=== PATIENT | male | born 1935 | race Caucasian/White ===

== ENCOUNTER 2018-07-24 17:27 | Emergency (ER) | payer OTHER ==
[2018-07-24 17:32] VITALS: BP 155/80; TEMP 98.1; BMI 24.1
--- NOTE | 2018-07-24 18:36 | ED.PDOC ---
General ED Provider: Dr. LOGAN QUINTANA Chief Complaint: Nausea/Vomiting Stated Complaint: vomited x 2 Time Seen by Physician: 17:40 (seen with nurse ) Mode of Arrival: Walk-In Information Source: Patient, Family Exam Limitations: No limitations Primary Care Provider: FRIEDA MALLORY Nursing and Triage Documentation Reviewed and Agree: Yes Does patient meet sepsis criteria?: No System Inflammatory Response Syndrome: Not Applicable Sepsis Protocol: For patient's 13 years and over: Temp is 96.8 and below OR 101 and greater Pulse >90 BPM Resp >20/minute Acutely Altered Mental Status Are patient's symptoms suggestive of a new infection, such as: -Pneumonia -Skin, Soft Tissue -Endocarditis -UTI -Bone, Joint Infection -Implantable Device -Acute Abdominal Infection -Wound Infection -Meningitis -Blood Stream Catheter Infection -Unknown GI Complaint Exam - Vomiting/Diarrhea Complaint/Exam Onset/Duration: vomited x 2 at 4pm none sinde Episodes of Vomiting over last 24 Hours: 2 Episodes of Diarrhea Over Last 24 Hours: 0 Initial Severity: Mild Current Severity: None Character of Vomiting: Reports: Non-bilious Aggravating: Reports: None Alleviating: Reports: None Associated Signs and Symptoms: Denies: Dizziness, Light-headedness, Melena, Hematemesis, Fever, Abdominal pain, Cramping Non-GI Risk Factors: Reports: None Surgical Obstruction Risk Factors: Reports: None Related Surgical History: Reports: None Abdominal Findings: Present: None Review of Systems - Review Of Systems Constitutional: Reports: No symptoms Eyes: Reports: No symptoms Ears, Nose, Mouth, Throat: Reports: No symptoms Respiratory: Reports: No symptoms Cardiac: Reports: No symptoms GI: Reports: Vomiting : Reports: No symptoms Musculoskeletal: Reports: No symptoms Skin: Reports: No symptoms Neurological: Reports: No symptoms Endocrine: Reports: No symptoms Hematologic/Lymphatic: Reports: No symptoms All Other Systems: Reviewed and Negative Past Medical History - Past Medical History Previously Healthy: Yes Endocrine: Reports: Dyslipidemia Cardiovascular: Reports: None Respiratory: Reports: None Hematological: Reports: None Gastrointestinal: Reports: None Genitourinary: Reports: None Neuro/Psych: Reports: None Musculoskeletal: Reports: None Cancer: Reports: None - Surgical History General Surgical History: Reports: None - Family History Family History: Reports: None - Social History Smoking Status: Former smoker Hx Substance Use: No Alcohol Screening: Occasionally Physical Exam - Physical Exam Appearance: Well-appearing, No pain distress, Well-nourished Eyes: BO, EOMI, Conjunctiva clear ENT: Ears normal, Nose normal, Oropharynx normal Respiratory: Airway patent, Breath sounds clear, Breath sounds equal, Respirations nonlabored Cardiovascular: RRR, Pulses normal, No rub, No murmur GI/: Soft, Nontender, No masses, Bowel sounds normal, No Organomegaly Musculoskeletal: Normal strength, ROM intact, No edema, No calf tenderness Skin: Warm, Dry, Normal color Neurological: Sensation intact, Motor intact, Reflexes intact, Cranial nerves intact, Alert, Oriented Psychiatric: Affect appropriate, Mood appropriate Interpretation - [employer] Estimator Rate: Normal Rhythm: Sinus Ectopy: None - EKG Interpretation Rate: Normal Rhythm: Sinus Ectopy: None [place]: NL ST Segment: Normal Physician Notification - Case Discussed Physician Notified: mallory Time of Notification: 19:00 (if ct abdomen is wnl pt may go home per pmd ) Critical Care Note - Critical Care Note Total Time (mins): 0 Course - Course Hematology/Chemistry: 07/24/18 18:00 07/24/18 18:00 Orders, Labs, Meds: Lab Review 07/24/18 07/24/18 07/24/18 17:45 18:00 18:00 WBC 7.62 RBC 3.98 L Hgb 13.1 L Hct 37.4 L MCV 94.0 MCH 32.9 H MCHC 35.0 RDW Coeff of Carlos 12.3 Plt Count 165 Immature Gran % (Auto) 0.5 Neut % (Auto) 75.9 Lymph % (Auto) 16.8 Cook % (Auto) 5.6 Eos % (Auto) 0.9 Baso % (Auto) 0.3 Immature Gran # (Auto) 0.0 Neut # (Auto) 5.8 Lymph # (Auto) 1.3 Cook # (Auto) 0.4 Eos # (Auto) 0.1 Baso # (Auto) 0.0 PT INR APTT Sodium 137.0 Potassium 4.56 Chloride 103.6 Carbon Dioxide 28.5 Anion Gap 9.46 BUN 12.6 Creatinine 0.89 Estimated GFR (MDRD) 82.00 BUN/Creatinine Ratio 14.15 Glucose 121.5 H Calcium 9.26 Total Bilirubin 0.71 AST 30.7 ALT 31.9 Alkaline Phosphatase 89.0 Total Creatine Kinase 108.2 Troponin I < 0.012 Total Protein 7.33 Albumin 4.24 Globulin 3.09 Albumin/Globulin Ratio 1.37 Urine Color Yellow Urine Clarity Clear Urine pH 7.0 Ur Specific [place] >=1.030 Urine Protein 2+ Urine Glucose (UA) Negative Urine Ketones Negative Urine Blood Negative Urine Nitrite Negative Urine Bilirubin Negative Urine Urobilinogen 1.0 Ur Leukocyte Esterase Negative Urine Microscopic WBC 0-2 Ur Squamous Epith Cells Not present Urine Mucus 1+ 07/24/18 18:00 WBC RBC Hgb Hct MCV MCH MCHC RDW Coeff of Carlos Plt Count Immature Gran % (Auto) Neut % (Auto) Lymph % (Auto) Cook % (Auto) Eos % (Auto) Baso % (Auto) Immature Gran # (Auto) Neut # (Auto) Lymph # (Auto) Cook # (Auto) Eos # (Auto) Baso # (Auto) PT 10.1 INR 1.01 APTT 23.2 L Sodium Potassium Chloride Carbon Dioxide Anion Gap BUN Creatinine Estimated GFR (MDRD) BUN/Creatinine Ratio Glucose Calcium Total Bilirubin AST ALT Alkaline Phosphatase Total Creatine Kinase Troponin I Total Protein Albumin Globulin Albumin/Globulin Ratio Urine Color Urine Clarity Urine pH Ur Specific [place] Urine Protein Urine Glucose (UA) Urine Ketones Urine Blood Urine Nitrite Urine Bilirubin Urine Urobilinogen Ur Leukocyte Esterase Urine Microscopic WBC Ur Squamous Epith Cells Urine Mucus Orders Category Date Time Status EKG-(ED ONLY) Stat CARDIO 07/24/18 18:07 Completed CBC W/ AUTO DIFF Stat LAB 07/24/18 18:00 Completed COMPREHENSIVE METABOLIC PANEL Stat LAB 07/24/18 18:00 Completed CREATINE KINASE Stat LAB 07/24/18 18:00 Completed PARTIAL THROMBOPLASTIN TIME Stat LAB 07/24/18 18:00 Completed PT WITH INR Stat LAB 07/24/18 18:00 Completed TROPONIN I Stat LAB 07/24/18 18:00 Completed URINALYSIS C & S IF INDICATED Stat LAB 07/24/18 17:[address] ABDOMEN/PELVIS WO CONTRAST Stat RADS 07/24/18 18:[address] CHEST W/O CONTRAST Stat RADS 07/24/18 18:07 Completed Vital Signs: Temp Pulse Resp BP Pulse Ox 07/24/18 17:27 98.1 F 76 20 155/80 H 94 L Departure - Departure Time of Disposition: 19:20 Disposition: HOME SELF-CARE Discharge Problem: Nausea, Vomiting Instructions: Acute Nausea and Vomiting (ED) Condition: Good Pt referred to PMD for follow-up: Yes IPMP verified?: No Additional Instructions: Please call your Family Physician as soon as possible to schedule a follow-up appointment. Allergies/Adverse Reactions: Allergies No Known Allergies Allergy (Verified 07/24/18 17:34) Home Medications: Ambulatory Orders Atorvastatin Calcium [Lipitor] 40 mg PO EVERY OTHER DAY 12/14/15 Multivitamin [Multi-Vitamin Daily] 1 each PO DAILY 07/24/18 Disposition Discussed With: Patient
--- NOTE | 2018-07-24 18:44 | CT ---
EXAM: CT chest without contrast HISTORY: Chest pain. TECHNIQUE: Multi-slice transaxial helical with coronal and sagittal reformed images CONTRAST: None COMPARISON: CT chest from 09/04/2015 FINDINGS: The aorta is atherosclerotic. The ascending thoracic aorta is ectatic to 36.3 mm. The aor tic arch and descending aorta have normal size. The heart size is normal. Sub centimeter mediastina l lymph nodes are noted. Calcified mediastinal and right hilar lymph nodes are detected. The lungs are severely emphysematous. No acute pulmonary nodules or masses are detected. Please refer to the CT abdomen report for details in the upper abdomen. The bones are free of suspicious osteolytic or osteoblastic lesions. Mild chronic T11 compression fr acture is noted. Previous interbody fusion has been performed in the lower cervical spine. IMPRESSION: 1. No acute cardiopulmonary disease. 2. Ectasia of the ascending thoracic aorta is 36.3 mm. 3. Severe emphysema. 4. Dependent atelectasis. 4. Chronic T11 compression fracture.
--- NOTE | 2018-07-24 18:51 | CT ---
EXAM: CT of the abdomen and pelvis without contrast. HISTORY: Pain. PROCEDURE: Contiguous axial CT images of the abdomen and pelvis without contrast with coronal and sa gittal reformats. FINDINGS: There emphysematous changes in both lungs. There are fluid density cysts in the liver. Th ere are gallstones in the gallbladder. The gallbladder is within normal limits in size. The gallbla dder wall is not well visualized by CT. The pancreas, spleen, adrenal glands and kidneys are normal i n appearance. There is aneurysmal dilatation of the infrarenal abdominal aorta which measures up to 3 .4 cm in diameter with no evidence of aneurysm leak. There are atherosclerotic calcifications in the abdominal aorta and bilateral iliac arteries. The appendix is not visualized and there are surgical clips along the margin of the cecum consistent with appendectomy. There is a mobile cecum positioned in the anterior right mid abdomen. There is diverticulosis of the colon with no evidence of diverti culitis. No free fluid or free air in the abdomen or pelvis. The bladder is adequately filled with no abnormality identified. The seminal vesicles and prostate gland are unremarkable. There is a chroni c T11 compression fracture compared with CT of 09/04/2015. There are degenerative changes in the spi ne. Impression: Cholelithiasis as described. Recommend ultrasound for further evaluation if clinically i ndicated. Infrarenal abdominal aortic aneurysm as described. Diverticulosis of the colon with no evidence of diverticulitis. Mobile cecum as described. Chronic obstructive pulmonary disease. Chronic T11 compression fracture.
== END 2018-07-24 19:22 | disposition home or self-care (01) ==
LOC: ED 17:27
DX: R11.2 Nausea with vomiting, unspecified (principal); E78.5 Hyperlipidemia, unspecified
CPT/HCPCS: 36415; 80053; 81001; 82150; 82550; 83690; 84484; 85025; 85610; 85730; 93005; 93010; 99283

== ENCOUNTER 2019-01-25 07:23 | Day surgery (SDC) ==
[2019-01-25] MEDS ORDERED: LIDOCAINE 1% 20 ML MDV ID STA (08:24)
[2019-01-25 08:26] VITALS: TEMP 97.3
[2019-01-25] MEDS ORDERED: VERSED ONE (09:15)
[2019-01-25] MEDS ORDERED: DIPRIVAN 20 ML VIAL IVP ONE (09:15)
[2019-01-25 11:17] VITALS: BP 132/68
--- NOTE | 2019-01-26 08:56 | OP ---
INDICATIONS FOR PROCEDURE: 83-year-old gentleman presents for colonoscopy exam. He has a past history of adenomatous polyps with a large polyp being removed from the transverse colon three years ago. He has a family history of colon cancer involving his father in his 60's. Siblings have had polyps. MEDICATIONS: SEE ANESTHESIA NOTES. PROCEDURE: COLONOSCOPY, SNARE POLYPECTOMY, SALINE INJECTION, ENDOCLIP THERAPY. REPORT: The risks, benefits, alternatives and limitations were discussed in detail with the patient. Informed consent was obtained. After adequate sedation was achieved, digital rectal exam revealed good tone, no masses. The colonoscope was introduced into the rectum and advanced under direct visual guidance to the cecum. The cecum was identified by the appendiceal orifice and IC valve. In the cecum there are several large AVMs. There was a small diminutive 4 mm polyp that I destroyed using a snare. I withdrew the scope back in the circumferential manner examining the mucosa quite carefully. I looked on the proximal and distal side of folds and flexures as best as possible. I was able to retroflex the scope in the right colon and in the left colon. In the very proximal ascending colon on the proximal side of a fold there was a 2 cm length linear polyp. It was only about 6 mm in width by 2 cm in length. I elected to raise this polyp using saline injection. I then removed this polyp by piecemeal technique. I was able to place an Endoclip to close the polypectomy site. The tissue pieces were collected and placed in a jar. In the proximal ascending colon there were three additional polyps about 5 mm in size. They were all removed by snare technique and placed in their own pathology jar. Withdrawing the scope further revealed a 4 mm polyp at the hepatic flexure. This was removed and destroyed by snare technique. In the sigmoid colon there was a benign appearing 5 mm polyp that was removed by snare technique. There were multiple diverticulitis scattered throughout the sigmoid colon. On retroflex view of the anal canal there were several small non engorged internal hemorrhoids. The prep was good. The withdrawal time was 28 minutes and 14 seconds. The patient tolerated the procedure well with stable vital signs and pulse oximetry throughout. IMPRESSION: 1. SEVEN (7) POLYPS REMOVED ABOVE. 2. MULTIPLE CECAL AVMS. 3. SIGMOID DIVERTICULOSIS. 4. NON ENGORGED INTERNAL HEMORRHOIDS. RECOMMENDATIONS: 1. High fiber diet. 2. Office visit as needed. 3. Will await pathology results. 4. If he is clinically well, consider surveillance colonoscopy examination again in three years, sooner if there are any signs or symptoms to indicate otherwise. cc: Dr. Brayan GREEN
== END 2019-01-25 11:00 | disposition home or self-care (01) ==
LOC: SURG 07:23
PROVIDERS: ATTEND Internal Medicine Gastroenterology
DX: Z86.010 Personal history of colon polyps (principal); Z80.0 Family history of malignant neoplasm of digestive organs; Z83.71 Family history of colonic polyps; Q27.33 Arteriovenous malformation of digestive system vessel; K57.90 Diverticulosis of intestine, part unspecified, without perforation or abscess without bleeding; K64.8 Other hemorrhoids; K63.5 Polyp of colon; D12.2 Benign neoplasm of ascending colon; D12.5 Benign neoplasm of sigmoid colon

== ENCOUNTER 2023-10-14 16:52 | Inpatient (IN) ==
[2023-10-14] MEDS ORDERED: LACTATED RINGERS 1,000 ML IV ONE (17:30)
[2023-10-14] MEDS ORDERED: ANTIVERT PO ONE (17:30)
[2023-10-14] MEDS ORDERED: ZOFRAN 4 MG/2 ML IVP ONE (17:30)
--- NOTE | 2023-10-14 17:40 | ED.PDOC ---
General ED Provider: Dr. LANCE MEANS MD Chief Complaint: Weakness Stated Complaint: HPI: said he didn't feel good this AM with some weakness. Got up and was dizzy and fell several times. Told his daughter that his head was "swimming around". No headache. No chest pain. Mild cough but no fever and no SOB. Vomited several times. Admitted in June for vomiting and gastroenteritis. 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 Hx of COPD, lipid disorder and a L frontal brain mass, partially calcified and unchanged in CT scan Jun 2023. He had fallen several times and once out of the bed and hit his head. No LOC. No MOIES or neck injury. No back or ankle injury. Family did noticed some redness and swelling of the L thumb. Resides with his daughter and she reports he hardly uses his cane Time Seen by Provider: 10/14/23 17:01 Mode of Arrival: Walk-In Information Source: Patient and Family Exam Limitations: Other (Hearing impairment and no hearing aids) Primary Care Provider: FRIEDA GUZMAN MD Referred to ED by: Other (family and self) Nursing and Triage Documentation Reviewed and Agree: Yes What is Opioid Naive?: *Opioid Naive implies the patient is not already taking opioids or not chronically receiving opioids on a daily basis. *PRN dosing is not "usually" associated with tolerance. *Patients are at higher risk of over-sedation and aspiration. What is Opioid Tolerant?: *Opioid Tolerance implies less than the expected response to an opioid. *Acquired tolerance is defined by the patient taking 60mg of oral morphine daily (or equianalgesic dose of another opioid) for 1 week or more. *Often associated with chronic pain. *May take more than usual dose to achieve desired pain control. Review of Systems Review Of Systems Constitutional: Reports Weakness Eyes: Reports No symptoms Ears, Nose, Mouth, Throat: Reports No symptoms Respiratory: Reports Cough; Denies Shortness of Breath Cardiac: Denies Chest pain, Edema or Syncope GI: Reports Nausea and Vomiting; Denies Abdominal pain or Diarrhea : Reports No symptoms Musculoskeletal: Denies Back pain or Neck pain Skin: Denies Bruising Neurological: Denies Anxiety, Depressed, Cognitive dysfunction or Headache [facility] Medical History AVM (arteriovenous malformation) Q27.30 - Arteriovenous malformation, site unspecified (ICD-10) Cholelithiases K80.20 - Calculus of gallbladder without cholecystitis without obstruction (ICD-10) Elevated PSA R97.20 - Elevated prostate specific antigen [PSA] (ICD-10) Social History Smoking and tobacco status: Never smoker Substance use type: does not use Special cristian needs: No Agree to transfusion: Yes Adopted: No Caregiver/support person: No Foster care: No Household members: spouse Housing: house Marital status: M Lives independently: Yes Number of children: 4 service: No shelter: No Current occupational status: retired History of recent travel: No Current gender identity: male Seatbelt use: always Drives intoxicated or rides with intoxicated driver's license examiner: No Water heater temperature set < 120 degrees: Yes Working smoke detector in home: Yes Fire extinguisher in home: Yes Carbon monoxide detector in home: Yes Surgical History History of appendectomy Z90.49 - Acquired absence of other specified parts of digestive tract (ICD- 10) History of cholecystectomy Z90.49 - Acquired absence of other specified parts of digestive tract (ICD- 10) History of fusion of cervical spine Z98.1 - Arthrodesis status (ICD-10) Previous back surgery Z98.890 - Other specified postprocedural states (ICD-10) Physical Exam Physical Exam Appearance: Reports No pain distress Ill-appearing: Mild Pain Distress: None Eyes: Reports BO and EOMI ENT: Reports Nose normal and Oropharynx normal Neck: Supple Respiratory: Reports Airway patent, Breath sounds equal, Breath sounds diminished and Rhonchi Cardiovascular: Reports RRR, Pulses normal, No rub and No murmur; Denies Irregular rhythm or Tachycardia GI/: Reports Soft, Nontender, No masses, Bowel sounds normal and No Organomegaly; Denies Tender Musculoskeletal: Reports Normal strength, ROM intact, No edema, No calf tenderness and Other (L hand with some redness over the 1st MCP joint. Minimal tenderness but no deformity); Denies Limited ROM or Limited strength Skin: Reports Warm, Dry and Normal color Neurological: Reports Sensation intact, Motor intact, Alert to verbal and Alert to pain Psychiatric: Reports Affect appropriate and Mood appropriate NIH Stroke Scale 1a. Level of Consciousness: 0=Alert and keenly responsive 1b. Level of Consciousness Questions: 0=Answers correctly to two questions 1c. Level of Consciousness Commands: 0=Performs two tasks correctly 2. Best Gaze: 0=Normal 3. Visual: 0=No visual loss 4. Facial Palsy: 0=Normal 5a. Motor Left Arm: 0=No drift,arm holds 90 degrees for 10 sec., leg 30 degrees for 5 sec. 5b. Motor Right Arm: 0=No drift,arm holds 90 degrees for 10 sec., leg 30 degrees for 5 sec. 6a. Motor Left Le=No drift,arm holds 90 degrees for 10 sec., leg 30 degrees for 5 sec. 6b. Motor Right Le=No drift,arm holds 90 degrees for 10 sec., leg 30 degrees for 5 sec. 7. Limb Ataxia: 0=Absent 8. Sensory: 0=Normal 9. Best Language: 0=No aphasia 10. Dysarthria: 0=Normal Stroke Scale Total: 0 Interpretation EKG Interpretation EKG Interpretation By: ED Physician Time of EKG #1: 18:20 Rate: Normal Rhythm: Other (Atrial Fib) Ectopy: PVCs [place]: NL ST Segment: Other (ST abnormalities) Interpretation: Abnormal EKG Radiology Interpretation Radiology Interpretation By: Radiologist Exam Interpreted: CXR Xray Comments: Fibrosis; CT scan of head showed no acute changes. L hand neg for fracture Physician Notification Case Discussed Physician Notified: Naz Nicole Time of Notification: 19:32 Comments: Full admit Course Course 10/14/23 17:10 10/14/23 17:10 Orders, Labs, Meds: Lab Review 10/14/23 10/14/23 17:10 17:47 WBC 10.68 H RBC 4.53 L Hgb 14.0 Hct 40.3 L MCV 89.0 MCH 30.9 MCHC 34.7 RDW Coeff of Carlos 13.4 Plt Count 270 Immature Gran % (Auto) 0.4 Neut % (Auto) 77.5 H Lymph % (Auto) 13.5 [place] % (Auto) 7.3 Eos % (Auto) 1.0 Baso % (Auto) 0.3 Neut # (Auto) 8.3 H Lymph # (Auto) 1.4 [place] # (Auto) 0.8 Eos # (Auto) 0.1 Baso # (Auto) 0.0 Immature Gran # (Auto) 0.0 Sodium 140.6 Potassium 2.15 L* Chloride 106.4 Carbon Dioxide 19.3 L Anion Gap 17.05 BUN 36.5 H Creatinine 2.37 H Estimated GFR (MDRD) 26.00 BUN/Creatinine Ratio 15.40 Glucose 132.0 H Lactic Acid 1.59 Calcium 8.71 Total Bilirubin 0.73 AST 30.1 ALT 25.0 Alkaline Phosphatase 115.4 Troponin I 0.074 Total Protein 8.81 H Albumin 4.36 Globulin 4.45 Albumin/Globulin Ratio 0.97 Procalcitonin 0.05 Influ A Molecular Assay Negative by naat Influ B Molecular Assay Negative by naat SARS CoV-2 RNA Rapid POONAM Negative Orders Category Date Time Status EKG-(ED ONLY) Stat CARDIO 10/14/23 17:28 Completed Orthostatic Vital Signs [ED ORTHOSTATIC VITAL SIGNS] . EMERGENCY 10/14/23 17:30 Active ONCE CBC W/ AUTO DIFF Stat LAB 10/14/23 17:10 Completed CMP [COMPREHENSIVE METABOLIC PANEL] Stat LAB 10/14/23 17:10 Completed COVID [SARS COV-2 RNA RAPID POONAM] Stat LAB 10/14/23 17:10 Completed FLU A/B MOLECULAR Stat LAB 10/14/23 17:10 Completed LACTIC ACID Stat LAB 10/14/23 17:47 Completed PROCALCITONIN Stat LAB 10/14/23 17:10 Completed TROPONIN I Stat LAB 10/14/23 17:10 Completed URINALYSIS C & S IF INDICATED Stat LAB 10/14/23 17:31 Uncollected Meclizine HCl [Antivert] Meds 10/14/23 17:30 Discontinued 25 mg PO ONCE ONE Ondansetron HCl/Pf [Zofran 4 mg/2 ml] Meds 10/14/23 17:30 Discontinued 4 mg IVP ONCE ONE Potassium Chloride [Potassium Chloride 20 Meq/100 ml Meds 10/14/23 18:33 Active Premix] 20 meq in 100 ml IV ONCE Ringers Lactated Solution [Lactated Ringers] 1,000 ml Meds 10/14/23 17:30 Active IV 250 mls/hr CHEST, 1V AP ONLY Stat RADS 10/14/23 17:[address] HEAD W/O CONTRAST Stat RADS 10/14/23 17:28 Completed HAND, LEFT 3 VIEWS Stat RADS 10/14/23 17:40 Completed Medications Generic Name Dose Route Start Last Admin Trade Name Freq PRN Reason Stop Dose Admin Lactated Ringer's 1,000 mls @ 250 mls/hr 10/14/23 17:30 10/14/23 18:28 Lactated Ringers IV 10/14/23 21:29 250 mls/hr .Q4H ONE Administration Potassium Chloride 20 meq in 100 mls @ 50 mls/hr 10/14/23 18:33 10/14/23 18:37 Potassium Chloride 20 Meq/100 Ml Premix IV 10/14/23 20:32 50 mls/hr ONCE ONE Administration Discontinued Medications Generic Name Dose Route Start Last Admin Trade Name Freq PRN Reason Stop Dose Admin Meclizine HCl 25 mg 10/14/23 17:30 10/14/23 18:28 Meclizine Hcl 25 Mg Tablet PO 10/14/23 17:31 25 mg ONCE ONE Administration Ondansetron HCl 4 mg 10/14/23 17:30 10/14/23 18:28 Ondansetron Hcl/Pf 4 Mg/2 Ml Sdv IVP 10/14/23 17:31 4 mg ONCE ONE Administration Vital Signs: Temp Pulse Resp BP Pulse Ox 10/14/23 17:03 98 F 85 20 107/81 95 Physician Progress Note: [] Discharge Plan Discharge Patient Disposition: ADMITTED INPATIENT Discharge Problem: Acute kidney injury, Acute hypokalemia Did you review [place] MAKE UP OPERATOR for ALL controlled substances?: Not Applicable ED Provider: LANCE MEANS Condition: Fair [place] Coma Scale Dorota Coma Scale Response Scores: Best Response = 15 Comatose Client = 8 or Less Totally Unresponsive = 3
[2023-10-14 17:42] LABS: BASOPHILS % (AUTO) 0.3 % (0.0-3.0); EOSINOPHILS # (AUTO) 0.1 K/ul (0.0-0.7); HEMATOCRIT 40.3 % (42.0-52.0); IMMATURE GRANULOCYTE % (AUTO) 0.4 % (0.0-5.0); LYMPHOCYTES # (AUTO) 1.4 K/uL (0.60-3.4); LYMPHOCYTES % (AUTO) 13.5 (10.0-50.0); MEAN CORPUSCULAR HEMOGLOBIN 30.9 pg (27.0-31.0); MEAN CORPUSCULAR HGB CONC 34.7 (31.8-35.4); MONOCYTES # (AUTO) 0.8 K/uL (0.4-2.0); MONOCYTES % (AUTO) 7.3 (0-10); NEUTROPHILS # (AUTO) 8.3 K/ul (2.0-6.9); NEUTROPHILS % (AUTO) 77.5 % (42.2-75.2); PLATELET COUNT 270 10^3/uL (140-440); RDW COEFFICIENT OF VARIATION 13.4 % (11.6-14.8); RED BLOOD COUNT 4.53 10^6/ul (4.70-6.10); WHITE BLOOD COUNT 10.68 K/ul (4.2-10.2)
[2023-10-14 17:55] LABS: ALBUMIN 4.36 g/dL (3.5-5.0); ALKALINE PHOSPHATASE 115.4 U/L (56-119); ASPARTATE AMINO TRANSFERASE 30.1 U/L (17-59); BILIRUBIN,TOTAL 0.73 mg/dL (0.2-1.3); BLOOD UREA NITROGEN 36.5 mg/dL (9-20); CALCIUM 8.71 mg/dL (8.4-10.2); CARBON DIOXIDE 19.3 mmol/L (22-30.0); CHLORIDE 106.4 mmol/L (98-107); CREATININE 2.37 mg/dL (0.60-1.10); SODIUM 140.6 mmol/L (134.5-145); TOTAL PROTEIN 8.81 g/dL (6.3-8.2)
[2023-10-14 17:58] LABS: POTASSIUM 2.15 mmol/L (3.5-5.1)
[2023-10-14 18:04] LABS: MOLECULAR FLU A NEGATIVE BY NAAT (NEGATIVE); MOLECULAR FLU B NEGATIVE BY NAAT (NEGATIVE); SARS COV-2 RNA RAPID NAAT NEGATIVE (NEGATIVE)
[2023-10-14 18:06] LABS: TROPONIN I 0.074 ng/ml (0.0000-0.120)
[2023-10-14] MEDS ORDERED: POTASSIUM CHLORIDE 20 MEQ/100 ML PREMIX 20 MEQ/100 ML BAG IV ONE ×2 (18:33→22:30)
--- NOTE | 2023-10-14 19:15 | DI ---
EXAM: CHEST RADIOGRAPH TECHNIQUE: Single frontal chest radiograph. HISTORY: Cough. COMPARISON: None. FINDINGS: EKG leads project over the chest. Reticular opacities of peripheral aspects of both mid and lower lungs. No pleural effusion or pneumothorax is seen. Heart size is normal. No acute displaced rib fractures are identified. 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 IMPRESSION: 1. Moderate pulmonary fibrosis. Difficult to exclude superimposed pneumonia.
--- NOTE | 2023-10-14 19:16 | DI ---
EXAM: LEFT HAND RADIOGRAPH TECHNIQUE: Three views. Frontal, lateral, and oblique. HISTORY: Left hand pain status post injury. COMPARISON: None. FINDINGS: Mild soft tissue swelling. Diffuse osteopenia. 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 No visible fractures or dislocations. IMPRESSION: 1. Soft tissue swelling without visible fracture.
--- NOTE | 2023-10-14 19:18 | CT ---
EXAMINATION: HEAD CT WITHOUT CONTRAST HISTORY: Dizziness. TECHNIQUE: Noncontrast CT of the brain was performed with images acquired from skull base to vertex. 2-D coronal and sagittal reformatted images were obtained from the axial source images. Contrast Dose: None. CT Dose Reduction Techniques Performed: Yes. COMPARISON: 06/25/2023 01/25/2023 FINDINGS: Topogram demonstrates no significant abnormality. Intraparenchymal hemorrhage: None. Parenchyma: Normal christian-white differentiation. Stable calcified mass in the superior posterior left frontal lobe measuring 2.7 cm without sequelae. The adjacent bone does show mild chronic appearing e rosive changes. No other mass or mass effect. Age related cerebral atrophy. Periventricular white matter ischemic changes consistent with small vessel disease. Mild bilateral internal carotid artery calcifications. Extra-axial spaces and basal cisterns: Normal. Ventricles: Normal size and morphology for age. Paranasal sinuses and mastoid air cells: Mucosal thickening seen in the bilateral maxillary sinuses. The remaining sinuses and mastoids visualized are clear. Stable small calcified osteoma in the righ t ethmoid sinus. Mastoid air cells are clear. Orbits: Normal visualized portions. Sella/Skull Base: Normal. Other: Scalp and visualized soft tissues are normal. Calvarium is normal. IMPRESSION: 1. Senescent changes without acute abnormality. 2. Stable calcified mass in the superior posterior left frontal lobe with mild chronic erosive type changes to the adjacent bone. No other sequelae. This is unchanged from the previous exams. All CT scans are performed using dose optimization techniques as appropriate to the performed exam an d include at least one of the following: Automated exposure control, adjustment of the mA and/or kV according t o size, and the use of iterative reconstruction technique.
[2023-10-14] MEDS ORDERED: TYLENOL PO PRN (19:37)
[2023-10-14] MEDS ORDERED: ZOFRAN 4 MG/2 ML IVP PRN (19:37)
[2023-10-14] MEDS ORDERED: MYLANTA SUSP PO PRN (19:39)
[2023-10-14] MEDS ORDERED: POTASSIUM CHLORIDE 20 MEQ/100 ML PREMIX 40 MEQ/200 ML BAG IV ONE (19:51)
[2023-10-14 21:39] VITALS: BMI 17.6
[2023-10-14] MEDS: LACTATED RINGERS 1,000 ML IV SCH (22:07)
[2023-10-14] MEDS: PROTONIX IVP SCH (22:08)
[2023-10-14] MEDS: POTASSIUM CHLORIDE 20 MEQ/100 ML PREMIX 20 MEQ/100 ML BAG IV SCH (22:08)
[2023-10-14] MEDS: PEPCID IVP SCH (22:09)
[2023-10-15] MEDS: POTASSIUM CHLORIDE 20 MEQ/100 ML PREMIX 20 MEQ/100 ML BAG IV SCH (00:22)
[2023-10-15 04:00] LABS: BILIRUBIN,URINE 1+ (NEGATIVE); CLARITY,URINE Slightly (CLEAR); COLOR,URINE Dark (YELLOW); GLUCOSE, URINE (UA) Negative (NEGATIVE); KETONES,URINE Negative (NEGATIVE); LEUKOCYTE ESTERASE ,URINE Trace (NEGATIVE); NITRITE,URINE Negative (NEGATIVE); PROTEIN,URINE 2+ (NEGATIVE); URINE, BLOOD Negative (NEGATIVE); UROBILINOGEN,URINE 0.2 (0.2)
[2023-10-15 04:08] LABS: BACTERIA,URINE TRACE (NOT PRESENT); TRANSITIONAL EPI CELLS,URINE 0-2 (NOT PRESENT)
[2023-10-15 05:32] LABS: BASOPHILS % (AUTO) 0.4 % (0.0-3.0); EOSINOPHILS # (AUTO) 0.3 K/ul (0.0-0.7); EOSINOPHILS % (AUTO) 3.6 % (0.0-7.0); HEMATOCRIT 34.9 % (42.0-52.0); IMMATURE GRANULOCYTE % (AUTO) 0.4 % (0.0-5.0); LYMPHOCYTES % (AUTO) 20.8 (10.0-50.0); MEAN CORPUSCULAR HEMOGLOBIN 30.7 pg (27.0-31.0); MEAN CORPUSCULAR HGB CONC 34.4 (31.8-35.4); MEAN CORPUSCULAR VOLUME 89.3 fl (80.0-94.0); MONOCYTES # (AUTO) 0.9 K/uL (0.4-2.0); MONOCYTES % (AUTO) 9.2 (0-10); NEUTROPHILS # (AUTO) 6.3 K/ul (2.0-6.9); NEUTROPHILS % (AUTO) 65.6 % (42.2-75.2); PLATELET COUNT 222 10^3/uL (140-440); RDW COEFFICIENT OF VARIATION 13.3 % (11.6-14.8); RED BLOOD COUNT 3.91 10^6/ul (4.70-6.10); WHITE BLOOD COUNT 9.57 K/ul (4.2-10.2)
[2023-10-15] MEDS: LACTATED RINGERS 1,000 ML IV SCH ×2 (05:36→15:52)
[2023-10-15 05:46] LABS: ALANINE AMINOTRANSFERASE 19.6 U/L (0-50); ALBUMIN 3.4 g/dL (3.5-5.0); ALKALINE PHOSPHATASE 104.2 U/L (56-119); ASPARTATE AMINO TRANSFERASE 23.2 U/L (17-59); BILIRUBIN,TOTAL 0.43 mg/dL (0.2-1.3); CALCIUM 8.07 mg/dL (8.4-10.2); CARBON DIOXIDE 21.7 mmol/L (22-30.0); CHLORIDE 110.2 mmol/L (98-107); CREATININE 1.91 mg/dL (0.60-1.10); GLUCOSE 103.7 mg/dL (74-106); SODIUM 138.4 mmol/L (134.5-145); TOTAL PROTEIN 7.08 g/dL (6.3-8.2)
[2023-10-15 05:52] LABS: POTASSIUM 2.68 mmol/L (3.5-5.1)
[2023-10-15] MEDS ORDERED: K-DUR PO ONE ×2 (06:05→13:16)
[2023-10-15] MEDS ORDERED: POTASSIUM CHLORIDE 20 MEQ/100 ML PREMIX 40 MEQ/200 ML BAG IV ONE (06:05)
[2023-10-15] MEDS: PEPCID IVP SCH ×2 (09:16→20:38)
[2023-10-15] MEDS: PROTONIX IVP SCH (09:16)
--- NOTE | 2023-10-15 11:44 | PCM ---
Date of Service Date Seen by Provider: 10/15/23 Time Seen by Provider: 09:00 Admit Day/Time Admission Date: 10/14/23 Admission Time: 19:33 Reason for Admission Chief Complaint: ACUTE KIDNEY INJURY WITH HYPOKALEMIA Hospital Provider Hospital Provider: JUAN HARRIS PA-C, [facility] Primary Care Physician Primary Care Physician: FRIEDA SCHMIDT MD History of Present Illness History of Present Illness: Patient is an 88 year old male from home with pmhx of gastritis, hyperlipidemia, COPD, osteoarthritis, anemia, who presented to the ER with vomiting, weakness, and falls x1 day. Patient was admitted a few months ago for similar episode. Patient was noted to have K+ of 2.1 and Cr bumped to 2.37. He was given fluids and potassium in the ER. Patient admitted to [facility] on tele. He was continued on fluids and replaced potassium. Patient did well overnight. K+ improved but still low at 2.6. Replaced again. He states he overall just doesn't feel well, lying in bed. He has ate some through area development consultant and tolerated well. No vomiting so far. Of note patient has had 23 lb weight loss in past 6 months. Closer to 30 lbs in last year. He did lose his last year and pcp notes are monitoring his weight loss. Case Discussed With Case Discussed With: Patient's case was discussed with the ER Physicians, Dr. Watson. [facility] Medical History Elevated PSA quit going to dr osborne R97.20 - Elevated prostate specific antigen [PSA] (ICD-10) Cholelithiases K80.20 - Calculus of gallbladder without cholecystitis without obstruction (ICD-10) AVM (arteriovenous malformation) cecal - x2 Shiben (does not recommend another colonoscopy) Q27.30 - Arteriovenous malformation, site unspecified (ICD-10) Surgical History History of fusion of cervical spine Z98.1 - Arthrodesis status (ICD-10) History of appendectomy Z90.49 - Acquired absence of other specified parts of digestive tract (ICD- 10) Previous back surgery x2 Z98.890 - Other specified postprocedural states (ICD-10) History of cholecystectomy Z90.49 - Acquired absence of other specified parts of digestive tract (ICD- 10) Social History Smoking and tobacco status: Never smoker Substance use type: does not use Special cristian needs: No Agree to transfusion: Yes Adopted: No Caregiver/support person: No Foster care: No Household members: spouse Housing: house Marital status: M Lives independently: Yes Number of children: 4 service: No detention: No Current occupational status: retired History of recent travel: No Current gender identity: male Seatbelt use: always Drives intoxicated or rides with intoxicated garbage truck driver: No Water heater temperature set < 120 degrees: Yes Working smoke detector in home: Yes Fire extinguisher in home: Yes Carbon monoxide detector in home: Yes Allergies Allergies Allergy/AdvReac Type Severity Reaction Status Date / Time quinine AdvReac Unconscious Verified 10/14/23 17:13 ness Current Medications Home Medications atorvastatin 40 mg tablet (Lipitor) 40 mg PO EVERY OTHER DAY #45 tabs 06/29/23 [Rx Confirmed 10/14/23 Last Taken Unknown] ferrous sulfate 325 mg (65 mg iron) tablet See Rx Instructions .Route .COMPLEX #90 tabs 06/29/23 [Rx Confirmed 10/14/23 Last Taken Unknown] Home Acetaminophen (Acetaminophen 325 Mg Tablet) 650 mg PO Q4H PRN PRN Reason: Mild Pain Al Hydroxide/Mg Hydroxide (Mag Hydrox/Al Hydrox/Simeth 30 Ml Cup) 30 ml PO DAILY PRN PRN Reason: Heartburn Atorvastatin Calcium (Atorvastatin Calcium 20 Mg Tablet) 40 mg PO EVERY OTHER DAY [facility] Enoxaparin Sodium (Enoxaparin Sodium 30 Mg/0.3 Ml Syr) 30 mg SUBCUT DAILY [facility] Last Admin: 10/15/23 14:27 Dose: 30 mg Famotidine (Famotidine Inj 20 Mg/2 Ml Vial) 20 mg IVP Q12HR [facility] Last Admin: 10/15/23 09:16 Dose: 20 mg Ferrous Sulfate (Ferrous Sulfate 324 Mg Tablet.) 324 mg PO DAILY [facility] Last Admin: 10/15/23 12:48 Dose: 324 mg Lactated Ringer's (Lactated Ringers) 1,000 mls @ 100 mls/hr IV .Q10H [facility] Last Admin: 10/15/23 05:36 Dose: 100 mls/hr Ondansetron HCl (Ondansetron Hcl/Pf 4 Mg/2 Ml Sdv) 4 mg IVP Q6H PRN PRN Reason: Nausea / Vomiting Last Admin: 10/14/23 22:08 Dose: 4 mg Pantoprazole Sodium (Pantoprazole Sodium 40 Mg Vial) 40 mg IVP DAILY [facility] Last Admin: 10/15/23 09:16 Dose: 40 mg Discontinued Medications Lactated Ringer's (Lactated Ringers) 1,000 mls @ 250 mls/hr IV .Q4H ONE Stop: 10/14/23 21:29 Last Infusion: 10/15/23 12:12 Dose: Infused Potassium Chloride (Potassium Chloride 20 Meq/100 Ml Premix) 20 meq in 100 mls @ 50 mls/hr IV ONCE ONE Stop: 10/14/23 20:32 Last Admin: 10/14/23 18:37 Dose: 50 mls/hr Potassium Chloride (Potassium Chloride 20 Meq/100 Ml Premix) 40 meq in 200 mls @ 50 mls/hr IV ONCE ONE Stop: 10/14/23 23:50 Potassium Chloride (Potassium Chloride 20 Meq/100 Ml Premix) 20 meq in 100 mls @ 50 mls/hr IV ONCE ONE Stop: 10/15/23 00:29 Potassium Chloride (Potassium Chloride 20 Meq/100 Ml Premix) 20 meq in 100 mls @ 50 mls/hr IV Q2H [place]USHKA Stop: 10/15/23 02:29 Last Admin: 10/15/23 00:22 Dose: 50 mls/hr Potassium Chloride (Potassium Chloride 20 Meq/100 Ml Premix) 40 meq in 200 mls @ 50 mls/hr IV ONCE ONE Stop: 10/15/23 10:04 Last Admin: 10/15/23 06:22 Dose: 50 mls/hr Potassium Chloride (Potassium Chloride 20 Meq/100 Ml Premix) 20 meq in 100 mls @ 50 mls/hr IV ONCE ONE Stop: 10/15/23 15:15 Last Admin: 10/15/23 14:26 Dose: 50 mls/hr Meclizine HCl (Meclizine Hcl 25 Mg Tablet) 25 mg PO ONCE ONE Stop: 10/14/23 17:31 Last Admin: 10/14/23 18:28 Dose: 25 mg Ondansetron HCl (Ondansetron Hcl/Pf 4 Mg/2 Ml Sdv) 4 mg IVP ONCE ONE Stop: 10/14/23 17:31 Last Admin: 10/14/23 18:28 Dose: 4 mg Potassium Chloride (Potassium Chloride 20 Meq Tab) 40 meq PO ONCE ONE Stop: 10/15/23 06:06 Last Admin: 10/15/23 06:23 Dose: 40 meq Potassium Chloride (Potassium Chloride 20 Meq Tab) 40 meq PO ONCE ONE Stop: 10/15/23 13:17 Last Admin: 10/15/23 14:26 Dose: 40 meq Opioid Naive vs. Tolerant Does Patient Take Opioids?: No Is Patient Opioid Naive?: Yes What is Opioid Naive?: *Opioid Naive implies the patient is not already taking opioids or not chronically receiving opioids on a daily basis. *PRN dosing is not "usually" associated with tolerance. *Patients are at higher risk of over-sedation and aspiration. Is Patient Opioid Tolerant?: No What is Opioid Tolerant?: *Opioid Tolerance implies less than the expected response to an opioid. *Acquired tolerance is defined by the patient taking 60mg of oral morphine daily (or equianalgesic dose of another opioid) for 1 week or more. *Often associated with chronic pain. *May take more than usual dose to achieve desired pain control. Review of Systems Constitutional: Reports Fatigue and Weakness Head: Reports Normocephalic and Atraumatic Cardiovascular: Denies Chest pain, Chest Pressure or Edema Respiratory: Denies Cough or Shortness of air Gastrointestinal: Reports Nausea and Vomiting; Denies Diarrhea, Abdominal pain or Melena Genitourinary: Denies Dysuria or Hematuria Neurological: Reports Weakness Physical examination Most Recent Vital Signs: Most Recent Vital Signs Temperature 97.6 F 10/15/23 09:43 Temperature Source Temporal Artery Scan 10/15/23 09:43 Temperature Source Infrared 10/14/23 17:03 Pulse Rate 63 10/15/23 09:43 Respiratory Rate 16 10/15/23 09:43 Blood Pressure 88/58 L 10/15/23 09:43 Blood Pressure Mean 68 10/15/23 09:43 Blood Pressure Location Right Arm 10/15/23 09:43 Blood Pressure Position Supine 10/15/23 05:45 O2 Sat by Pulse Oximetry 96 10/15/23 09:43 Oxygen Delivery Method Room Air 10/15/23 09:43 Height 6 ft 1 in 10/15/23 10:40 Weight 134 lb 4 oz 10/15/23 10:40 Telemetry Type Remote Telemetry 10/15/23 07:00 Telemetry Monitoring Continues 10/15/23 07:00 Telemetry Heart Rate 70 10/15/23 07:00 EKG [place] Interval 0.13 10/15/23 07:00 EKG QRS Interval 0.07 10/15/23 07:00 Telemetry Strip Reading SR with PACs 10/15/23 07:00 Appearance: Positive No Apparent Distress, Alert and Oriented x3 and Ill- Appearing Skin: Negative Rashes HEENT: Positive Normocephalic and Atraumatic; Negative Oral Mucous Moist Neck: Positive Supple and Midline Trachea Chest/Lungs: Positive Clear to Auscultation Bilaterally; Negative Rales, Rhonci or Wheezes Heart: Positive RRR GI/: Positive Soft, Nontender, Bowel Sounds Normal and No Distention Neurological: Positive Cranial Nerves Intact, Alert, Oriented and Other (+generalized weakness) Labs This Visit Labs This Visit: Labs This Visit 10/14/23 10/14/23 10/15/23 17:10 17:47 03:44 WBC 10.68 H RBC 4.53 L Hgb 14.0 Hct 40.3 L MCV 89.0 MCH 30.9 MCHC 34.7 RDW Coeff of Carlos 13.4 Plt Count 270 Immature Gran % (Auto) 0.4 Neut % (Auto) 77.5 H Lymph % (Auto) 13.5 [place] % (Auto) 7.3 Eos % (Auto) 1.0 Baso % (Auto) 0.3 Neut # (Auto) 8.3 H Lymph # (Auto) 1.4 [place] # (Auto) 0.8 Eos # (Auto) 0.1 Baso # (Auto) 0.0 Immature Gran # (Auto) 0.0 Sodium 140.6 Potassium 2.15 L* Chloride 106.4 Carbon Dioxide 19.3 L Anion Gap 17.05 BUN 36.5 H Creatinine 2.37 H Estimated GFR (MDRD) 26.00 BUN/Creatinine Ratio 15.40 Glucose 132.0 H Lactic Acid 1.59 Calcium 8.71 Magnesium 2.35 H Total Bilirubin 0.73 AST 30.1 ALT 25.0 Alkaline Phosphatase 115.4 Troponin I 0.074 Total Protein 8.81 H Albumin 4.36 Globulin 4.45 Albumin/Globulin Ratio 0.97 Procalcitonin 0.05 Urine Color Dark Urine Clarity Slightly Urine pH 6.0 Ur Specific [place] >=1.030 Urine Protein 2+ H Urine Glucose (UA) Negative Urine Ketones Negative Urine Blood Negative Urine Nitrite Negative Urine Bilirubin 1+ H Urine Urobilinogen 0.2 Ur Leukocyte Esterase Trace H Urine Microscopic WBC 2-5 Ur Squamous Epith Cells Not Reportable Ur Transition Epith Cell 0-2 Urine Bacteria Trace Influ A Molecular Assay Negative by naat Influ B Molecular Assay Negative by naat SARS CoV-2 RNA Rapid POONAM Negative 10/15/23 05:07 WBC 9.57 RBC 3.91 L Hgb 12.0 L Hct 34.9 L MCV 89.3 MCH 30.7 MCHC 34.4 RDW Coeff of Carlos 13.3 Plt Count 222 Immature Gran % (Auto) 0.4 Neut % (Auto) 65.6 Lymph % (Auto) 20.8 [place] % (Auto) 9.2 Eos % (Auto) 3.6 Baso % (Auto) 0.4 Neut # (Auto) 6.3 Lymph # (Auto) 2.0 [place] # (Auto) 0.9 Eos # (Auto) 0.3 Baso # (Auto) 0.0 Immature Gran # (Auto) 0.0 Sodium 138.4 Potassium 2.68 L* Chloride 110.2 H Carbon Dioxide 21.7 L Anion Gap 9.18 BUN 38.0 H Creatinine 1.91 H Estimated GFR (MDRD) 34.00 BUN/Creatinine Ratio 19.89 Glucose 103.7 Lactic Acid Calcium 8.07 L Magnesium Total Bilirubin 0.43 AST 23.2 ALT 19.6 Alkaline Phosphatase 104.2 Troponin I Total Protein 7.08 Albumin 3.40 L Globulin 3.68 Albumin/Globulin Ratio 0.92 Procalcitonin Urine Color Urine Clarity Urine pH Ur Specific [place] Urine Protein Urine Glucose (UA) Urine Ketones Urine Blood Urine Nitrite Urine Bilirubin Urine Urobilinogen Ur Leukocyte Esterase Urine Microscopic WBC Ur Squamous Epith Cells Ur Transition Epith Cell Urine Bacteria Influ A Molecular Assay Influ B Molecular Assay SARS CoV-2 RNA Rapid POONAM Imaging Imaging: EXAMINATION: HEAD CT WITHOUT CONTRAST HISTORY: Dizziness. TECHNIQUE: Noncontrast CT of the brain was performed with images acquired from skull base to vertex. 2-D coronal and sagittal reformatted images were obtained from the axial source images. Contrast Dose: None. CT Dose Reduction Techniques Performed: Yes. COMPARISON: 06/25/2023 01/25/2023 FINDINGS: Topogram demonstrates no significant abnormality. Intraparenchymal hemorrhage: None. Parenchyma: Normal christian-white differentiation. Stable calcified mass in the superior posterior left frontal lobe measuring 2.7 cm without sequelae. The adjacent bone does show mild chronic appearing erosive changes. No other mass or mass effect. Age related cerebral atrophy. Periventricular white matter ischemic changes consistent with small vessel disease. Mild bilateral internal carotid artery calcifications. Extra-axial spaces and basal cisterns: Normal. Ventricles: Normal size and morphology for age. Paranasal sinuses and mastoid air cells: Mucosal thickening seen in the bilateral maxillary sinuses. The remaining sinuses and mastoids visualized are clear. Stable small calcified osteoma in the right ethmoid sinus. Mastoid air cells are clear. Orbits: Normal visualized portions. Sella/Skull Base: Normal. Other: Scalp and visualized soft tissues are normal. Calvarium is normal. IMPRESSION: 1. Senescent changes without acute abnormality. 2. Stable calcified mass in the superior posterior left frontal lobe with mild chronic erosive type changes to the adjacent bone. No other sequelae. This is unchanged from the previous exams. EXAM: CHEST RADIOGRAPH TECHNIQUE: Single frontal chest radiograph. HISTORY: Cough. COMPARISON: None. FINDINGS: EKG leads project over the chest. Reticular opacities of peripheral aspects of both mid and lower lungs. No pleural effusion or pneumothorax is seen. Heart size is normal. No acute displaced rib fractures are identified. 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 IMPRESSION: 1. Moderate pulmonary fibrosis. Difficult to exclude superimposed pneumonia. EXAM: LEFT HAND RADIOGRAPH TECHNIQUE: Three views. Frontal, lateral, and oblique. HISTORY: Left hand pain status post injury. COMPARISON: None. FINDINGS: Mild soft tissue swelling. Diffuse osteopenia. 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 No visible fractures or dislocations. IMPRESSION: 1. Soft tissue swelling without visible fracture. Review Statement Review Statement: I have independently reviewed and interpreted the labs/EKGs/imaging that were ordered by the ER provider. I have reviewed all outside records that are available currently in our EMR including imaging/notes/labs from previous visits. Plan Plan: 1. Acute hypokalemia in setting of vomiting, severe - 2.1 upon admission, improved to 2.6 today. Gave another 40 oral and 40 IV. Recheck BMP at noon. 2. Acute kidney injury, stage I in setting of dehydration - Cr improved, not yet at baseline. Cont LR. 3. Vomiting - Improved, zofran prn, progress diet as tolerated. CT back in Jun was negative when he had similar symptoms. Mylanta, pepcid, and protonix ordered. 4. Hyperlipidemia - Cont home meds 5. Iron deficiency - Cont home meds 6. Unintentional weight loss - Pt not feeling well today, will discuss further with him later. DVT Prophylaxis: Lovenox Time Spent: Greater than 80 minutes spent with patient, 50% of the time spent with this patient was devoted to counseling and coordination of care. Advanced Care Planning: FULL CODE 3 minutes spent discussing advance care planning. Admit to: Inpatient Discussed Plan of Care with Dr. Bennie Schmidt. Medications Medication Orders: Medications Ordered Category Date Time Status Acetaminophen [Tylenol] Meds 10/14/23 19:37 Active 650 mg PO Q4H PRN Famotidine Inj [Pepcid] Meds 10/14/23 21:00 Active 20 mg IVP Q12HR Mag Hydrox/Al Hydrox/Simeth [Mylanta Susp] Meds 10/14/23 19:39 Active 30 ml PO DAILY PRN Ondansetron HCl/Pf [Zofran 4 mg/2 ml] Meds 10/14/23 19:37 Active 4 mg IVP Q6H PRN Pantoprazole Sodium [Protonix] Meds 10/14/23 19:40 Active 40 mg IVP DAILY Ringers Lactated Solution [Lactated Ringers] 1,000 ml Meds 10/14/23 20:00 Active IV 100 mls/hr
--- NOTE | 2023-10-15 11:50 | RS.PTINEVL ---
Subjective Patient information Date of Evaluation: 10/15/23 Date of Arrival on Unit: 10/14/23 Admitted From:: Home Diagnosis: acute kidney injury, acute hypokalemia, multiple falls Usual Living Arrangement: With Others Living Arrangement Comments: daughter lives with him Home Environment: House Medical History: COPD and Arthritis Medical History Comments:: L frontal brain mass, AVM, elevated PSA, LATEX ALLERGY?: No Surgical History: Cervical Spine, Lumbar Spine and Cholecystectomy Medications: see chart Subjective Information/ Patient Comments:: pt states that he is tired but feeling a little better. pt c/o dizziness with ambulation. Level of function Prior to this admission, the patient could do the following:: Independent Selfcare, Independent ADL's and Independent Ambulation Abilities prior to this admission: States he uses a cane at home. Current Level of Function: Partially Dependent Current Equipment Used at Home: cane Interventions Objective Patient Orientation: Person and Place Current Interventions: IV's and Telemetry Range of Motion ROM Right Upper Extremity AROM: WFL's Left Upper Extremity AROM: WFL's Right Lower Extremity AROM: WFL's Left Lower Extremity AROM: WFL's Muscle Strength Muscle Strength Right Upper Extremity: Mild Weakness (grossly 4/5) Left Upper Extremity: Mild Weakness (grossly 4/5) Right Lower Extremity: Mild Weakness (hip flex 4-/5, knee flex/ext 4/5, ankle DF/PF 4/5 ) Left Lower Extremity: Mild Weakness (hip flex 4-/5, knee flex/ext 4/5, ankle DF /PF 4/5 ) Sensation Sensation Right Upper Extremity: Intact/Normal Left Upper Extremity: Intact/Normal Right Lower Extremity: Intact/Normal Left Lower Extremity: Intact/Normal Palpation Palpation Findings: None/Normal Balance Sitting Balance and Reactions Static Sitting Balance: Fair Dynamic Sitting Balance: Fair Standing Balance and Reactions Static Standing Balance: Poor Dynamic Standing Balance: Poor Standing Equilibrium Reactions: Delayed Left and Delayed Right Standing Protective Reactions: Delayed Left and Delayed Right Functional Mobility Bed Mobility Rolling R/L: CGA Supine to Sit: CGA and 1 person assist Transfers Sit to Stand: CGA and 1 person assist Stand to Sit: CGA and 1 person assist Safety Awareness Safety Awareness: Fair ARMOND INDEX SCORE: n/a Ambulation Ambulation Assistive Device Used: Rolling Walker Orthotic/Prosthetic Device: No Distance: 35ft Assistance needed with Ambulation: CGA and 1 person assist Gait Deviations: Forward posture, Short stride and Deviates from path Ambulation Comments: pt requires cues for walker placement and gait sequencing. Factors Affecting Ambulation: Decreased Balance, Weakness, Decreased Coordination, Decreased Safety, Cognitive Status and Limited Endurance Treatment time Units charged Gait trainin Time with patient Length of Evaluation: 18 Total treatment time: 32 Patient Education Education Patient Education: Activity Modification and Education of Plan of Care Teaching Recipient: Patient Teaching Methods: Discussion Comments: discussion regarding POC. pt is [place] and requires slow, louder commands Assessment Assessment Problem List:: Decreased level of function, Requires training/education, Decreased safety/Risk of falls, Weakness and Cognitive status limits abilities Rehab Potential: Fair Further Therapy Indicated?: Yes Candidate for Swing Bed for Therapy Services?: Feel pt may not be a candidate for swing bed due to higher level of function, would need to reassess at later time. Evaluation Complexity: HISTORY: Medium, EXAM OF BODY SYSTEMS: Medium, CLINICAL PRESENTATION: Medium and CLINICAL DECISION MAKING: Medium Patient's Goal(s): Go home with my daughter Short Term Goals GOAL #1: pt demonstrate rolling and scooting in bed independently. Goal to be met by: 10/17/23 GOAL #2: Transfer sup to/from sit SBA Goal to be met by: 10/17/23 GOAL #3: Sit to/from stand CGA to SBA Goal to be met by: 10/17/23 GOAL #4: pt amb with rwx 100ft with CGA w no LOB Goal to be met by: 10/17/23 GOAL #5: Improve BLE strength 4 to 4+/5 Goal to be met by: 10/17/23 Telemarketing Manager Goals GOAL #1: Transfer sup to/from sit to/from stand SBA to independent Goal to be met by: 10/19/23 GOAL #2: pt amb with rwx functional household distances SBA to independent. Goal to be met by: 10/19/23 GOAL #3: Ascend/descend 1 step with CGA x 1 Goal to be met by: 10/19/23 Plan Plan of Care: Therapeutic EX and Therapeutic Activity Other:: gait training Frequency of Treatment: 1-2 X day, as tolerated Duration of Treatment: 4 days Anticipated Discharge Destination: Home Treatment Diagnosis (ICD 10 Codes): difficulty walking R 26.2 impaired balance R 26.81 weakness M62.81 h/o falls R 29.6 Has the Physician been added for Co-signature?: Yes
[2023-10-15] MEDS ORDERED: NON-FORMULARY MEDICATION (Ferrous Sulfate 325 mg (65 mg iron) tablet) SCH (12:30)
[2023-10-15] MEDS: FERROUS SULFATE PO SCH (12:48)
[2023-10-15 13:11] LABS: BLOOD UREA NITROGEN 32.3 mg/dL (9-20); CALCIUM 8.24 mg/dL (8.4-10.2); CARBON DIOXIDE 21.3 mmol/L (22-30.0); CHLORIDE 110.9 mmol/L (98-107); CREATININE 1.68 mg/dL (0.60-1.10); GLUCOSE 84.3 mg/dL (74-106); POTASSIUM 2.83 mmol/L (3.5-5.1); SODIUM 140.1 mmol/L (134.5-145)
[2023-10-15] MEDS ORDERED: POTASSIUM CHLORIDE 20 MEQ/100 ML PREMIX 20 MEQ/100 ML BAG IV ONE (13:16)
[2023-10-15] MEDS: LOVENOX SUBCUT SCH (14:27)
[2023-10-16] MEDS: LACTATED RINGERS 1,000 ML IV SCH ×3 (02:08→12:57)
[2023-10-16 05:30] LABS: BASOPHILS % (AUTO) 0.5 % (0.0-3.0); EOSINOPHILS # (AUTO) 0.2 K/ul (0.0-0.7); EOSINOPHILS % (AUTO) 2.6 % (0.0-7.0); HEMATOCRIT 30.9 % (42.0-52.0); HEMOGLOBIN 10.5 g/dl (14.0-18.0); IMMATURE GRANULOCYTE % (AUTO) 0.5 % (0.0-5.0); LYMPHOCYTES # (AUTO) 1.4 K/uL (0.60-3.4); LYMPHOCYTES % (AUTO) 22.2 (10.0-50.0); MEAN CORPUSCULAR HEMOGLOBIN 30.9 pg (27.0-31.0); MEAN CORPUSCULAR VOLUME 90.9 fl (80.0-94.0); MONOCYTES # (AUTO) 0.6 K/uL (0.4-2.0); MONOCYTES % (AUTO) 8.9 (0-10); NEUTROPHILS # (AUTO) 4.1 K/ul (2.0-6.9); NEUTROPHILS % (AUTO) 65.3 % (42.2-75.2); PLATELET COUNT 181 10^3/uL (140-440); RDW COEFFICIENT OF VARIATION 13.5 % (11.6-14.8); WHITE BLOOD COUNT 6.27 K/ul (4.2-10.2)
[2023-10-16 05:43] LABS: ALANINE AMINOTRANSFERASE 17.4 U/L (0-50); ALBUMIN 2.75 g/dL (3.5-5.0); ALKALINE PHOSPHATASE 80.5 U/L (56-119); ASPARTATE AMINO TRANSFERASE 21.1 U/L (17-59); BILIRUBIN,TOTAL 0.42 mg/dL (0.2-1.3); BLOOD UREA NITROGEN 25.6 mg/dL (9-20); CALCIUM 7.95 mg/dL (8.4-10.2); CARBON DIOXIDE 21.7 mmol/L (22-30.0); CHLORIDE 115.4 mmol/L (98-107); GLUCOSE 98.3 mg/dL (74-106); POTASSIUM 3.21 mmol/L (3.5-5.1); SODIUM 142.5 mmol/L (134.5-145); TOTAL PROTEIN 5.89 g/dL (6.3-8.2)
[2023-10-16 05:58] LABS: CREATININE 1.17 mg/dL (0.60-1.10)
[2023-10-16] MEDS: LOVENOX SUBCUT SCH (08:30)
[2023-10-16] MEDS: FERROUS SULFATE PO SCH (08:30)
[2023-10-16] MEDS ORDERED: K-DUR PO ONE (08:33)
[2023-10-16] MEDS: PROTONIX IVP SCH (08:45)
[2023-10-16] MEDS: PEPCID IVP SCH ×2 (08:49→21:00)
--- NOTE | 2023-10-16 09:55 | PCM.PROG ---
Date/Time Seen Date Seen by Provider: 10/16/23 Time Seen by Provider: 08:20 Provider Provider: [facility]UAN HARRIS [facility]-C, [facility] Chief Complaint Chief Complaint: ACUTE KIDNEY INJURY WITH HYPOKALEMIA Subjective Subjective: Patient working with PT, was ambulatory in the hallways. Doing better. Mildly agitated today. Would like to progress his diet for lunch. Has had some loose stools but contributes to eating liquid diet, but then says it was going on for a few days prior to admission. No nausea or vomiting. Potassium improving. Objective Appearance: Positive No Apparent Distress and Alert and Oriented x3 Chest/Lungs: Positive Clear to Auscultation Bilaterally; Negative Rales, Rhonci or Wheezes Heart: Positive RRR GI/: Positive Soft, Nontender, Bowel Sounds Normal and No Distention Neurological: Positive Alert, Oriented and Other (+generalized weakness ) Vital Signs Vital Signs: Vital Signs: Last 24 Hours 10/15/23 10:40 10/15/23 13:00 10/15/23 14:00 Temperature 97.3 F L Temperature Source Tympanic Pulse Rate 70 Respiratory Rate 18 Blood Pressure 112/78 Blood Pressure Mean 89 Blood Pressure Location Left Arm Blood Pressure Position Sitting O2 Sat by Pulse Oximetry 97 Oxygen Delivery Method Room Air Height 6 ft 1 in Weight 134 lb 4 oz Telemetry Type Remote Telemetry Telemetry Monitoring Continues Irregular Telemetry Rate (Approximate) Telemetry Heart Rate 70 EKG AZ Interval 0.14 EKG QRS Interval 0.06 Telemetry Strip Reading SR 10/15/23 18:00 10/15/23 19:00 10/15/23 19:20 Temperature 97.1 F L Temperature Source Temporal Artery Scan Pulse Rate 81 Respiratory Rate 20 Blood Pressure 123/72 Blood Pressure Mean 89 Blood Pressure Location Right Arm Blood Pressure Position O2 Sat by Pulse Oximetry 95 Oxygen Delivery Method Room Air Room Air Height Weight Telemetry Type Remote Telemetry Telemetry Monitoring Continues Irregular Telemetry Rate (Approximate) 80-90 BPM Telemetry Heart Rate EKG AZ Interval EKG QRS Interval 0.08 Telemetry Strip Reading AFIB 10/15/23 21:29 10/16/23 01:00 10/16/23 05:48 Temperature 98.8 F 98.8 F Temperature Source Temporal Artery Scan Temporal Artery Scan Pulse Rate 78 76 Respiratory Rate 17 17 Blood Pressure 99/55 L 97/56 L Blood Pressure Mean 69 69 Blood Pressure Location Left Arm Left Arm Blood Pressure Position Supine Supine O2 Sat by Pulse Oximetry 98 98 Oxygen Delivery Method Room Air Room Air Height Weight Telemetry Type Remote Telemetry Telemetry Monitoring Continues Irregular Telemetry Rate (Approximate) Telemetry Heart Rate 73 EKG AZ Interval 0.17 EKG QRS Interval 0.07 Telemetry Strip Reading SR 10/16/23 07:20 10/16/23 08:32 10/16/23 08:49 Temperature Temperature Source Pulse Rate 78 Respiratory Rate Blood Pressure 104/61 Blood Pressure Mean Blood Pressure Location Right Arm Blood Pressure Position Supine O2 Sat by Pulse Oximetry Oxygen Delivery Method Room Air Height Weight Telemetry Type Remote Telemetry Telemetry Monitoring Continues Irregular Telemetry Rate (Approximate) Telemetry Heart Rate 85 EKG AZ Interval 0.19 EKG QRS Interval 0.09 Telemetry Strip Reading NSR with PVC 10/16/23 09:49 Temperature 97.5 F L Temperature Source Tympanic Pulse Rate 78 Respiratory Rate 18 Blood Pressure 104/61 Blood Pressure Mean 75 Blood Pressure Location Right Arm Blood Pressure Position Supine O2 Sat by Pulse Oximetry 96 Oxygen Delivery Method Room Air Height Weight Telemetry Type Telemetry Monitoring Irregular Telemetry Rate (Approximate) Telemetry Heart Rate EKG AZ Interval EKG QRS Interval Telemetry Strip Reading Lab Results Lab Results: Lab Results: Last 24 Hours 10/16/23 10/15/23 05:03 12:52 WBC 6.27 RBC 3.40 L Hgb 10.5 L Hct 30.9 L MCV 90.9 MCH 30.9 MCHC 34.0 RDW Coeff of Carlos 13.5 Plt Count 181 Immature Gran % (Auto) 0.5 Neut % (Auto) 65.3 Lymph % (Auto) 22.2 Wilkes % (Auto) 8.9 Eos % (Auto) 2.6 Baso % (Auto) 0.5 Neut # (Auto) 4.1 Lymph # (Auto) 1.4 Wilkes # (Auto) 0.6 Eos # (Auto) 0.2 Baso # (Auto) 0.0 Immature Gran # (Auto) 0.0 Sodium 142.5 140.1 Potassium 3.21 L 2.83 L Chloride 115.4 H 110.9 H Carbon Dioxide 21.7 L 21.3 L Anion Gap 8.61 10.73 BUN 25.6 H 32.3 H Creatinine 1.17 H D 1.68 H Estimated GFR (MDRD) 59.00 39.00 BUN/Creatinine Ratio 21.88 19.22 Glucose 98.3 84.3 Calcium 7.95 L 8.24 L Total Bilirubin 0.42 AST 21.1 ALT 17.4 Alkaline Phosphatase 80.5 Total Protein 5.89 L Albumin 2.75 L Globulin 3.14 Albumin/Globulin Ratio 0.87 Additional Comments Additional Comments: I have independently reviewed and interpreted the labs/EKGs/imaging ordered during this hospital stay. I have reviewed outside records that are available in our EMR that pertain to medical stay including imaging/notes/labs from previous visits. Active Medications Active Medications: Medications Generic Name Dose Route Start Last Admin Trade Name Freq PRN Reason Stop Dose Admin Acetaminophen 650 mg 10/14/23 19:37 Acetaminophen 325 Mg Tablet PO Q4H PRN Mild Pain Al Hydroxide/Mg Hydroxide 30 ml 10/14/23 19:39 Mag Hydrox/Al Hydrox/Simeth 30 Ml Cup PO DAILY PRN Heartburn Atorvastatin Calcium 40 mg 10/17/23 09:00 Atorvastatin Calcium 20 Mg Tablet PO EVERY OTHER DAY ANUSHKA Enoxaparin Sodium 30 mg 10/15/23 13:15 10/16/23 08:30 Enoxaparin Sodium 30 Mg/0.3 Ml Syr SUBCUT 30 mg DAILY ANUSHKA Administration Famotidine 20 mg 10/14/23 21:00 10/16/23 08:49 Famotidine Inj 20 Mg/2 Ml Vial IVP 20 mg Q12HR ANUSHKA Administration Ferrous Sulfate 324 mg 10/17/23 06:00 Ferrous Sulfate 324 Mg Tablet. PO QDAC2 COUNTS INCLUDE 234 BEDS AT THE [facility] Lactated Ringer's 1,000 mls @ 100 mls/hr 10/14/23 20:00 10/16/23 02:08 Lactated Ringers IV 100 mls/hr .Q10H ANUSHKA Administration Ondansetron HCl 4 mg 10/14/23 19:37 10/14/23 22:08 Ondansetron Hcl/Pf 4 Mg/2 Ml Sdv IVP 4 mg Q6H PRN Administration Nausea / Vomiting Pantoprazole Sodium 40 mg 10/14/23 19:40 10/16/23 08:45 Pantoprazole Sodium 40 Mg Vial IVP 40 mg DAILY ANUSHKA Administration Plan Plan: 1. Acute hypokalemia in setting of vomiting, severe - Improving. 2.1 upon admission. Gave another 40 oral today. 2. Acute kidney injury, stage I in setting of dehydration - Cr improved, not yet at baseline. Cont LR. 3. Vomiting - Improved, zofran prn, progress diet as tolerated. CT back in Jun was negative when he had similar symptoms. Mylanta, pepcid, and protonix ordered. 4. Hyperlipidemia - Cont home meds 5. Iron deficiency - Cont home meds 6. Unintentional weight loss - Has been followed outpatient by pcp. Review Statement Review Statement: I have personally discussed and reviewed the patient's visit/currently labs/imaging/decision making with Dr. Schmidt, my supervising attending. Greater that 50 minutes spent with patient, 50% of the time spent with this patient was devoted to counseling and coordination of care.
[2023-10-16] MEDS ORDERED: BENADRYL PO PRN (10:51)
[2023-10-16 13:53] LABS: ADENOVIRUS F40/41 (PCR) NOT DETECTED (NOT DETECT); ASTROVIRUS (PCR) NOT DETECTED (NOT DETECT); CAMPYLOBACTER (PCR) NOT DETECTED (NOT DETECT); CRYPTOSPORIDIUM (PCR) NOT DETECTED (NOT DETECT); CYCLOSPORA CAYETANENSIS (PCR) NOT DETECTED (NOT DETECT); ENTAMOEBA HISTOLYTICA (PCR) NOT DETECTED (NOT DETECT); ENTEROAGGREGATIVE E.COLI (PCR) NOT DETECTED (NOT DETECT); GIARDIA LAMBLIA (PCR) NOT DETECTED (NOT DETECT); NOROVIRUS GI/GII (PCR) NOT DETECTED (NOT DETECT); PLESIOMONAS SHIGELLOIDES (PCR) NOT DETECTED (NOT DETECT); ROTAVIRUS A (PCR) NOT DETECTED (NOT DETECT); SALMONELLA(PCR) NOT DETECTED (NOT DETECT); SAPOVIRUS (PCR) NOT DETECTED (NOT DETECT); SHIGA-LIKE TOXIN E.COLI (PCR) NOT DETECTED (NOT DETECT); VIBRIO (PCR) NOT DETECTED (NOT DETECT); VIBRIO CHOLERAE (PCR) NOT DETECTED (NOT DETECT); YERSINIA ENTEROCOLITICA (PCR) NOT DETECTED (NOT DETECT)
[2023-10-16 15:08] LABS: C DIFF A/B (PCR) NOT DETECTED (NOT DETECT)
[2023-10-16] MEDS ORDERED: REMERON PO SCH (21:00)
[2023-10-16 21:24] VITALS: RESP 18
[2023-10-17 05:13] VITALS: BP 90/46; PULSE 60; TEMP 96.6
[2023-10-17] MEDS ORDERED: FERROUS SULFATE PO SCH (06:00)
[2023-10-17 06:17] LABS: BASOPHILS % (AUTO) 0.7 % (0.0-3.0); EOSINOPHILS # (AUTO) 0.2 K/ul (0.0-0.7); EOSINOPHILS % (AUTO) 3.7 % (0.0-7.0); HEMOGLOBIN 10.3 g/dl (14.0-18.0); IMMATURE GRANULOCYTE % (AUTO) 0.3 % (0.0-5.0); LYMPHOCYTES # (AUTO) 1.7 K/uL (0.60-3.4); MEAN CORPUSCULAR HEMOGLOBIN 31.7 pg (27.0-31.0); MEAN CORPUSCULAR HGB CONC 34.3 (31.8-35.4); MEAN CORPUSCULAR VOLUME 92.3 fl (80.0-94.0); MONOCYTES # (AUTO) 0.5 K/uL (0.4-2.0); MONOCYTES % (AUTO) 8.6 (0-10); NEUTROPHILS # (AUTO) 3.5 K/ul (2.0-6.9); NEUTROPHILS % (AUTO) 58.7 % (42.2-75.2); PLATELET COUNT 175 10^3/uL (140-440); RDW COEFFICIENT OF VARIATION 13.5 % (11.6-14.8); RED BLOOD COUNT 3.25 10^6/ul (4.70-6.10)
[2023-10-17 06:32] LABS: ALBUMIN 2.77 g/dL (3.5-5.0); ALKALINE PHOSPHATASE 87.3 U/L (56-119); ASPARTATE AMINO TRANSFERASE 22.6 U/L (17-59); BILIRUBIN,TOTAL 0.26 mg/dL (0.2-1.3); BLOOD UREA NITROGEN 17.7 mg/dL (9-20); CALCIUM 7.84 mg/dL (8.4-10.2); CARBON DIOXIDE 24.9 mmol/L (22-30.0); CHLORIDE 113.7 mmol/L (98-107); CREATININE 1.02 mg/dL (0.60-1.10); GLUCOSE 92.5 mg/dL (74-106); POTASSIUM 3.07 mmol/L (3.5-5.1); SODIUM 141.7 mmol/L (134.5-145); TOTAL PROTEIN 5.99 g/dL (6.3-8.2)
[2023-10-17] MEDS: PEPCID IVP SCH ×2 (08:23→08:33)
[2023-10-17] MEDS: PROTONIX IVP SCH ×2 (08:23→08:33)
[2023-10-17] MEDS ORDERED: K-DUR PO ONE (08:26)
[2023-10-17] MEDS: LOVENOX SUBCUT SCH (08:30)
[2023-10-17] MEDS ORDERED: LIPITOR PO SCH (09:00)
--- NOTE | 2023-10-17 09:56 | DCSUM ---
Admission Date Admission Date: 10/14/23 Discharge Date Discharge Date: 10/17/23 Admission Diagnosis Admission Diagnosis: 1. Acute hypokalemia in setting of vomiting, severe 2. Acute kidney injury, stage I in setting of dehydration 3. Vomiting Discharge Diagnosis Discharge Diagnosis: 1. Acute hypokalemia in setting of diarrhea, severe - Improved 2. Acute kidney injury, stage I in setting of dehydration - Resolved 3. Nausea and diarrhea, chronic 4. Hyperlipidemia - Cont home meds 5. Iron deficiency - Cont home meds 6. Unintentional weight loss - Has been followed outpatient by pcp. 7. Depression Hospital Provider [facility] Provider: JUAN HARRIS PA-C, [facility] Primary Care Physician Primary Care Physician: FRIEDA GUZMAN MD Summary of History and Physical Summary of History and Physical: Patient is an 88 year old male from home with pmhx of gastritis, hyperlipidemia, COPD, osteoarthritis, anemia, who presented to the ER with vomiting, weakness, and falls x1 day. Patient was admitted a few months ago for similar episode. Patient was noted to have K+ of 2.1 and Cr bumped to 2.37. He was given fluids and potassium in the ER. Patient admitted to [facility] on tele. He was continued on fluids and replaced potassium. Patient did well overnight. K+ improved but still low at 2.6. Replaced again. He states he overall just doesn't feel well, lying in bed. He has ate some through shift superintendent caustic cresylate and tolerated well. No vomiting so far. Of note patient has had 23 lb weight loss in past 6 months. Closer to 30 lbs in last year. He did lose his last year and pcp notes are monitoring his weight loss. Hospital Course Subjective: Patient was hydrated with LR and given potassium replacement. K+ improved but continues to have losses, contributed to ongoing diarrhea. Cr improved to baseline with fluids. Pt able to tolerate diet without difficulty. Pt clarified he doesn't have vomiting, just nausea when his stomach gets upset. His daughter states he's had ongoing diarrhea for months. Unsure of cause. GI panel ordered and was negative. Last admission CT a/p was negative. Advised continuing outpatient work up. Will discharge on potassium supplement, please f/u with pcp within 1 week for recheck of levels. Daughter has concerns about dad's mood. He has lost about 30 lbs over past year. She contributes to loss of his . States he has no appetite, and when he does eat he doesn't eat very well. His sleep habits are not great as well. Discussed could go back on lexapro as he was on in the past, or we could try mirtazepine which may help with his appetite and sleep habits. She would like to try that. He was started on mirtazepine 7.5 mg and slept through the night. Will continue on discharge. Patient was ambulatory. Denies dizziness. Feeling much better. Discharge to home. They have declined home health. Appearance: No Apparent Distress and Alert HEENT: MMM CVS: No Murmur Abdomen: Soft, Non-Tender and No Distention Respiratory: No Accessory Muscle Use Extremities: No Edema Vital Signs: Most Recent Vital Signs Temperature 96.6 F L 10/17/23 05:10 Temperature Source Temporal Artery Scan 10/17/23 05:10 Temperature Source Infrared 10/14/23 17:03 Pulse Rate 60 10/17/23 05:10 Respiratory Rate 18 10/17/23 05:10 Blood Pressure 90/46 L 10/17/23 05:10 Blood Pressure Mean 60 10/17/23 05:10 Blood Pressure Location Left Arm 10/17/23 05:10 Blood Pressure Position Supine 10/17/23 05:10 O2 Sat by Pulse Oximetry 94 L 10/17/23 05:10 Oxygen Delivery Method Room Air 10/17/23 07:26 Height 6 ft 1 in 10/15/23 10:40 Weight 134 lb 4 oz 10/15/23 10:40 Telemetry Type Remote Telemetry 10/17/23 07:00 Telemetry Monitoring Continues 10/17/23 07:00 Irregular Telemetry Rate (Approximate) 70-80 BPM 10/17/23 01:00 Telemetry Heart Rate 58 L 10/17/23 07:00 EKG MS Interval 0.17 10/17/23 07:00 EKG QRS Interval 0.07 10/17/23 07:00 Telemetry Strip Reading SR W/ PACS 10/17/23 07:00 Imaging: EXAMINATION: HEAD CT WITHOUT CONTRAST HISTORY: Dizziness. TECHNIQUE: Noncontrast CT of the brain was performed with images acquired from skull base to vertex. 2-D coronal and sagittal reformatted images were obtained from the axial source images. Contrast Dose: None. CT Dose Reduction Techniques Performed: Yes. COMPARISON: 06/25/2023 01/25/2023 FINDINGS: Topogram demonstrates no significant abnormality. Intraparenchymal hemorrhage: None. Parenchyma: Normal christian-white differentiation. Stable calcified mass in the superior posterior left frontal lobe measuring 2.7 cm without sequelae. The adjacent bone does show mild chronic appearing erosive changes. No other mass or mass effect. Age related cerebral atrophy. Periventricular white matter ischemic changes consistent with small vessel disease. Mild bilateral internal carotid artery calcifications. Extra-axial spaces and basal cisterns: Normal. Ventricles: Normal size and morphology for age. Paranasal sinuses and mastoid air cells: Mucosal thickening seen in the bilateral maxillary sinuses. The remaining sinuses and mastoids visualized are clear. Stable small calcified osteoma in the right ethmoid sinus. Mastoid air cells are clear. Orbits: Normal visualized portions. Sella/Skull Base: Normal. Other: Scalp and visualized soft tissues are normal. Calvarium is normal. IMPRESSION: 1. Senescent changes without acute abnormality. 2. Stable calcified mass in the superior posterior left frontal lobe with mild chronic erosive type changes to the adjacent bone. No other sequelae. This is unchanged from the previous exams. EXAM: CHEST RADIOGRAPH TECHNIQUE: Single frontal chest radiograph. HISTORY: Cough. COMPARISON: None. FINDINGS: EKG leads project over the chest. Reticular opacities of peripheral aspects of both mid and lower lungs. No pleural effusion or pneumothorax is seen. Heart size is normal. No acute displaced rib fractures are identified. 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 IMPRESSION: 1. Moderate pulmonary fibrosis. Difficult to exclude superimposed pneumonia. EXAM: LEFT HAND RADIOGRAPH TECHNIQUE: Three views. Frontal, lateral, and oblique. HISTORY: Left hand pain status post injury. COMPARISON: None. FINDINGS: Mild soft tissue swelling. Diffuse osteopenia. 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 No visible fractures or dislocations. IMPRESSION: 1. Soft tissue swelling without visible fracture. Lab Results Last 24 Hours: 10/17/23 10/16/23 06:13 13:25 WBC 5.90 RBC 3.25 L Hgb 10.3 L Hct 30.0 L MCV 92.3 MCH 31.7 H MCHC 34.3 RDW Coeff of Carlos 13.5 Plt Count 175 Immature Gran % (Auto) 0.3 Neut % (Auto) 58.7 Lymph % (Auto) 28.0 Potter % (Auto) 8.6 Eos % (Auto) 3.7 Baso % (Auto) 0.7 Neut # (Auto) 3.5 Lymph # (Auto) 1.7 Potter # (Auto) 0.5 Eos # (Auto) 0.2 Baso # (Auto) 0.0 Immature Gran # (Auto) 0.0 Sodium 141.7 Potassium 3.07 L Chloride 113.7 H Carbon Dioxide 24.9 Anion Gap 6.17 BUN 17.7 Creatinine 1.02 Estimated GFR (MDRD) 69.00 BUN/Creatinine Ratio 17.35 Glucose 92.5 Calcium 7.84 L Total Bilirubin 0.26 AST 22.6 ALT 17.0 Alkaline Phosphatase 87.3 Total Protein 5.99 L Albumin 2.77 L Globulin 3.22 Albumin/Globulin Ratio 0.86 Stl C. cayetanensis PCR Not detected Stool Rotavirus (PCR) Not detected Stool Adenovirus (PCR) Not detected Stool Astrovirus (PCR) Not detected Stool Campylobacter PCR Not detected Stl C.difficile Tox PCR Not detected Stool Cryptosporidium PCR Not detected Stl E.coli Shiga Tox PCR Not detected St Sh/Enteroin Ecoli PCR Not detected Stl Enterotoxigenic E PCR Not detected Stool EPEC (PCR) Not detected Stl E. histolytica PCR Not detected Stool Giardia Lamblia PCR Not detected Stl P. shigelloides PCR Not detected Stool Salmonella PCR Not detected Stool Sapovirus (PCR) Not detected St Y.enterocolitica PCR Not detected Stool Vibrio (PCR) Not detected Stl Vibrio cholerae PCR Not detected Stl Enteroaggr Ecoli PCR Not detected Stl Norovirus GI/GII PCR Not detected Discharge Instructions Discharge Planning: Discharge Planning > [address] Bennie Guzman. Discharge Medications: Medications at Discharge (Home Meds & RX) atorvastatin 40 mg tablet (Lipitor) 40 mg PO EVERY OTHER DAY #45 tabs 06/29/23 ferrous sulfate 325 mg (65 mg iron) tablet See Rx Instructions .Route .COMPLEX #90 tabs 06/29/23 Discharge Plan Discharge Discharge Orders: Discharge Patient (ONCE); Ordered 10/17/23 Ordered By: JUAN HARRIS Activity Restrictions/Additional Instructions: DISCHARGE TO HOME DIET: TOLERATED ACTIVITY: TOLERATED ENCOURAGE PROTEIN SHAKES (FAIRLIFE IS A GOOD OPTION WITH LOTS OF PROTEIN) PHARMACY: [facility] - HELPS WITH MOOD, APPETITE, AND SLEEP POTASSIUM SUPPLEMENT - PLEASE F/U WITH PCP WITHIN 1 WEEK TO MONITOR POTASSIUM LEVELS Instructions: Hyperosmolar Hyperglycemic State (IP) Patient Disposition: HOME WITH FAMILY CARE Prescriptions: New mirtazapine 7.5 mg tablet 7.5 mg PO BEDTIME Qty: 30 0RF potassium chloride 20 mEq tablet extended release 20 meq PO BID Qty: 14 0RF Rx Instructions: PLEASE RECHECK LABS WITHIN 1 WEEK Continued atorvastatin [Lipitor] 40 mg tablet 40 mg PO EVERY OTHER DAY Qty: 45 1RF ferrous sulfate 325 mg (65 mg iron) tablet See Rx Instructions .ROUTE .COMPLEX Qty: 90 1RF Dose Instruction: TAKE 1 TABLET BY MOUTH EVERY DAY Rx Instructions: TAKE 1 TABLET BY MOUTH EVERY DAY Did you review [place] MED[employer] STAFF DIRECTOR for ALL controlled substances?: Not Applicable Discussed opioids are addictive and Narcan is available by prescription or from pharmacy.: No Condition: Stable
== END 2023-10-17 11:40 | disposition home or self-care (01) | DRG 641 ==
LOC: ED 16:52 → MEDSURG B 19:52
PROVIDERS: ADMIT Hospitalist; ATTEND Physician Assistant
DX: Z20.822 Contact with and (suspected) exposure to COVID-19; R11.10 Vomiting, unspecified; M19.90 Unspecified osteoarthritis, unspecified site; N17.9 Acute kidney failure, unspecified; E61.1 Iron deficiency; J44.9 Chronic obstructive pulmonary disease, unspecified; I48.91 Unspecified atrial fibrillation; R22.32 Localized swelling, mass and lump, left upper limb; R53.83 Other fatigue; R63.4 Abnormal weight loss; F32.A Depression, unspecified; D64.9 Anemia, unspecified; E87.6 Hypokalemia; I71.43 Infrarenal abdominal aortic aneurysm, without rupture; G93.89 Other specified disorders of brain

== ENCOUNTER 2023-12-17 15:18 | Inpatient (IN) ==
--- NOTE | 2023-12-17 15:48 | ED.PDOC ---
General ED Provider: Dr. JORGE GAFFNEY MD Chief Complaint: Well Check Stated Complaint: 88 years old male coming to the emergency room for generalized weakness. Patient has been feeling very weak staying in bed decreased oral intake for the last 4 to 5 days. Patient ran out of his antidepressant m edications but his primary care physician did not refill it because of frequent falling. Patient PCP is Dr. Schmidt who recommended the patient to go to the emergency room for workup. Otherwise patient denies any fever, chest pain, shortness of breath, changes in bowel or urine. Time Seen by Provider: 12/17/23 15:31 Primary Care Provider: FRIEDA SCHMIDT MD Nursing and Triage Documentation Reviewed and Agree: Yes What is Opioid Naive?: *Opioid Naive implies the patient is not already taking opioids or not chronically receiving opioids on a daily basis. *PRN dosing is not "usually" associated with tolerance. *Patients are at higher risk of over-sedation and aspiration. What is Opioid Tolerant?: *Opioid Tolerance implies less than the expected response to an opioid. *Acquired tolerance is defined by the patient taking 60mg of oral morphine daily (or equianalgesic dose of another opioid) for 1 week or more. *Often associated with chronic pain. *May take more than usual dose to achieve desired pain control. Review of Systems Review Of Systems Constitutional: Reports Malaise and Weakness [facility] Medical History Elevated PSA quit going to dr osborne R97.20 - Elevated prostate specific antigen [PSA] (ICD-10) Cholelithiases K80.20 - Calculus of gallbladder without cholecystitis without obstruction (ICD-10) AVM (arteriovenous malformation) cecal - x2 Shiben (does not recommend another colonoscopy) Q27.30 - Arteriovenous malformation, site unspecified (ICD-10) Social History Smoking and tobacco status: Never smoker Substance use type: does not use Special cristian needs: No Agree to transfusion: Yes Adopted: No Caregiver/support person: No Foster care: No Household members: spouse Housing: house Marital status: M Lives independently: Yes Number of children: 4 service: No jail: No Current occupational status: retired History of recent travel: No Current gender identity: male Seatbelt use: always Drives intoxicated or rides with intoxicated lokie driver: No Water heater temperature set < 120 degrees: Yes Working smoke detector in home: Yes Fire extinguisher in home: Yes Carbon monoxide detector in home: Yes Surgical History History of fusion of cervical spine Z98.1 - Arthrodesis status (ICD-10) History of appendectomy Z90.49 - Acquired absence of other specified parts of digestive tract (ICD- 10) Previous back surgery x2 Z98.890 - Other specified postprocedural states (ICD-10) History of cholecystectomy Z90.49 - Acquired absence of other specified parts of digestive tract (ICD- 10) Physical Exam Physical Exam Appearance: Reports Thin and Cachectic Respiratory: Reports Airway patent, Breath sounds clear, Breath sounds equal and Breath sounds diminished Cardiovascular: Reports RRR, Pulses normal, No rub and No murmur Musculoskeletal: Reports ROM intact and No edema Interpretation EKG Interpretation EKG Interpretation By: ED Physician Time of EKG #1: 15:50 Rate: Normal Rhythm: Sinus Ectopy: None Spangle: NL Interpretation: No signs of ischemia Course Course Orders, Labs, Meds: Orders Category Date Time Status EKG-(ED ONLY) Stat CARDIO 12/17/23 15:37 Ordered Saline Lock [ED IV/MEDIPORT/POWERPORT] .ONCE EMERGENCY 12/17/23 15:36 Active CBC W/ AUTO DIFF Stat LAB 12/17/23 15:36 Ordered CMP [COMPREHENSIVE METABOLIC PANEL] Stat LAB 12/17/23 15:36 Ordered COVID [SARS COV-2 RNA RAPID POONAM] Stat LAB 12/17/23 Uncollected FLU A & B MOLECULAR [FLU A/B MOLECULAR] Stat LAB 12/17/23 15:44 Uncollected URINALYSIS C & S IF INDICATED Stat LAB 12/17/23 15:36 Uncollected 0.9 % Sodium Chloride [Saline Flush] Meds 12/17/23 15:36 Active 1 syr IVF PRN PRN Ringers Lactated Solution [Lactated Ringers] 1,000 ml Meds 12/17/23 15:36 Active IV BOLUS CXR [CHEST, 1V AP ONLY] Stat RADS 12/17/23 15:36 Ordered Medications Generic Name Dose Route Start Last Admin Trade Name Freq PRN Reason Stop Dose Admin Lactated Ringer's 1,000 mls @ 1,000 mls/hr 12/17/23 15:36 Lactated Ringers IV 12/17/23 16:35 BOLUS ONE Sodium Chloride 1 syr 12/17/23 15:36 0.9% Sodium Chloride 10 Ml Disp.Syrin IVF PRN PRN To flush IV Vital Signs: Patient with dehydration and acute renal failure hypokalemia CBC shows leukocytosis no pneumonia on the chest x-ray patient was given 40 mill equivalents of potassium p.o. and 1 L of lactated Ringer ordered another liter of NS with 40 mEq of potassium at a low rate of 125 mill per hour. Patient needs to be admitted. Called hospitalist on-call Dave discussed the patient case with her and she accepted the patient to be admitted under her services. Discharge Plan Discharge Patient Disposition: ADMITTED INPATIENT Discharge Problem: Dehydration, Hypokalemia, Acute renal failure Prescriptions: No Action atorvastatin [Lipitor] 40 mg tablet 40 mg PO EVERY OTHER DAY Qty: 45 1RF ferrous sulfate 325 mg (65 mg iron) tablet See Rx Instructions .ROUTE .COMPLEX Qty: 90 1RF Dose Instruction: TAKE 1 TABLET BY MOUTH EVERY DAY Rx Instructions: TAKE 1 TABLET BY MOUTH EVERY DAY potassium chloride 20 mEq tablet extended release 20 meq PO QID Qty: 20 0RF mirtazapine 7.5 mg tablet 7.5 mg PO BEDTIME tamsulosin [Flomax] 0.4 mg capsule 0.4 mg PO QHS Did you review [place] TAILORING TEACHER for ALL controlled substances?: Not Applicable ED Provider: JORGE GAFFNEY Condition: Stable Physician Progress Note: []
[2023-12-17 15:51] LABS: BASOPHILS % (AUTO) 0.1 % (0.0-3.0); EOSINOPHILS % (AUTO) 0.2 % (0.0-7.0); HEMATOCRIT 38.6 % (42.0-52.0); HEMOGLOBIN 12.6 g/dl (14.0-18.0); IMMATURE GRANULOCYTE # (AUTO) 0.1 (0.0-1.0); IMMATURE GRANULOCYTE % (AUTO) 0.4 % (0.0-5.0); LYMPHOCYTES # (AUTO) 1.5 K/uL (0.60-3.4); LYMPHOCYTES % (AUTO) 12.3 (10.0-50.0); MEAN CORPUSCULAR HEMOGLOBIN 30.2 pg (27.0-31.0); MEAN CORPUSCULAR HGB CONC 32.6 (31.8-35.4); MEAN CORPUSCULAR VOLUME 92.6 fl (80.0-94.0); MONOCYTES # (AUTO) 0.3 K/uL (0.4-2.0); MONOCYTES % (AUTO) 2.4 (0-10); NEUTROPHILS # (AUTO) 10.4 K/ul (2.0-6.9); NEUTROPHILS % (AUTO) 84.6 % (42.2-75.2); PLATELET COUNT 367 10^3/uL (140-440); RDW COEFFICIENT OF VARIATION 12.8 % (11.6-14.8); RED BLOOD COUNT 4.17 10^6/ul (4.70-6.10); WHITE BLOOD COUNT 12.32 K/ul (4.2-10.2)
--- NOTE | 2023-12-17 15:59 | DI ---
EXAM: CHEST RADIOGRAPH TECHNIQUE: Single frontal chest radiograph. HISTORY: Cough COMPARISON: 10/14/2023 FINDINGS: There is centrilobular emphysema with lower lobe fibrosis. No effusion. Atherosclerotic aorta. The heart size is normal. The osseous structures are unremarkable. IMPRESSION: 1. Emphysema with lower lobe fibrosis
[2023-12-17] MEDS: LACTATED RINGERS 1,000 ML IV ONE (16:03)
[2023-12-17 16:04] LABS: ALBUMIN 3.98 g/dL (3.5-5.0); ALKALINE PHOSPHATASE 123.4 U/L (56-119); ASPARTATE AMINO TRANSFERASE 28.5 U/L (17-59); BILIRUBIN,TOTAL 0.79 mg/dL (0.2-1.3); CALCIUM 8.95 mg/dL (8.4-10.2); CARBON DIOXIDE 16.5 mmol/L (22-30.0); CREATININE 2.14 mg/dL (0.60-1.10); GLUCOSE 104.9 mg/dL (74-106); POTASSIUM 2.89 mmol/L (3.5-5.1); SODIUM 136.5 mmol/L (134.5-145); TOTAL PROTEIN 8.5 g/dL (6.3-8.2)
[2023-12-17 16:34] LABS: SARS COV-2 RNA RAPID NAAT NEGATIVE (NEGATIVE)
[2023-12-17 16:35] LABS: MOLECULAR FLU A NEGATIVE BY NAAT (NEGATIVE); MOLECULAR FLU B NEGATIVE BY NAAT (NEGATIVE)
[2023-12-17] MEDS ORDERED: ZOFRAN 4 MG/2 ML IVP PRN (16:58)
[2023-12-17] MEDS: K-DUR PO STA (17:11)
[2023-12-17 17:51] VITALS: BMI 17.5
[2023-12-17] MEDS: SODIUM CHLORIDE 0.9%-KCL 40MEQ 1,000 ML IV ONE (17:58)
[2023-12-17] MEDS: LACTATED RINGERS 1,000 ML IV SCH (18:04)
[2023-12-17] MEDS: TYLENOL PO PRN (20:53)
[2023-12-17] MEDS: FLOMAX PO SCH (20:53)
[2023-12-17 21:14] LABS: BILIRUBIN,URINE 2+ (NEGATIVE); CLARITY,URINE Cloudy (CLEAR); COLOR,URINE Yellow (YELLOW); GLUCOSE, URINE (UA) Negative (NEGATIVE); KETONES,URINE 1+ (NEGATIVE); LEUKOCYTE ESTERASE ,URINE 2+ (NEGATIVE); NITRITE,URINE Negative (NEGATIVE); PH,URINE 7.5 (5-9); PROTEIN,URINE 2+ (NEGATIVE); URINE, BLOOD Negative (NEGATIVE); UROBILINOGEN,URINE 0.2 (0.2)
[2023-12-17 21:21] LABS: BACTERIA,URINE 2+ (NOT PRESENT); SQUAMOUS EPITHELIAL CELL,UR NOT PRESENT (0-5); TRANSITIONAL EPI CELLS,URINE 0-2 (NOT PRESENT); URINE WBC, MICROSCOPIC 20-30 (0-2)
[2023-12-17] MEDS: ROCEPHIN 1 GM/50 ML D5W 1 GM/50 ML BAG IV SCH (22:41)
[2023-12-18 05:29] LABS: BASOPHILS % (AUTO) 0.4 % (0.0-3.0); EOSINOPHILS # (AUTO) 0.1 K/ul (0.0-0.7); EOSINOPHILS % (AUTO) 1.8 % (0.0-7.0); IMMATURE GRANULOCYTE % (AUTO) 0.4 % (0.0-5.0); LYMPHOCYTES # (AUTO) 1.9 K/uL (0.60-3.4); MEAN CORPUSCULAR HEMOGLOBIN 29.8 pg (27.0-31.0); MEAN CORPUSCULAR HGB CONC 32.7 (31.8-35.4); MEAN CORPUSCULAR VOLUME 91.1 fl (80.0-94.0); MONOCYTES # (AUTO) 0.6 K/uL (0.4-2.0); MONOCYTES % (AUTO) 8.2 (0-10); NEUTROPHILS # (AUTO) 4.7 K/ul (2.0-6.9); NEUTROPHILS % (AUTO) 63.2 % (42.2-75.2); PLATELET COUNT 286 10^3/uL (140-440); RED BLOOD COUNT 3.36 10^6/ul (4.70-6.10); WHITE BLOOD COUNT 7.41 K/ul (4.2-10.2)
[2023-12-18 05:42] LABS: HEMATOCRIT 30.6 % (42.0-52.0)
[2023-12-18 05:52] LABS: ALANINE AMINOTRANSFERASE 20.8 U/L (0-50); ALBUMIN 3.07 g/dL (3.5-5.0); ALKALINE PHOSPHATASE 94.3 U/L (56-119); BILIRUBIN,TOTAL 0.51 mg/dL (0.2-1.3); BLOOD UREA NITROGEN 41.4 mg/dL (9-20); CALCIUM 8.19 mg/dL (8.4-10.2); CARBON DIOXIDE 18.9 mmol/L (22-30.0); CHLORIDE 108.4 mmol/L (98-107); CREATININE 1.68 mg/dL (0.60-1.10); GLUCOSE 91.5 mg/dL (74-106); SODIUM 134.9 mmol/L (134.5-145); TOTAL PROTEIN 6.74 g/dL (6.3-8.2)
[2023-12-18 06:04] LABS: POTASSIUM 2.76 mmol/L (3.5-5.1)
[2023-12-18] MEDS: K-DUR PO ONE (06:34)
[2023-12-18] MEDS: POTASSIUM CHLORIDE 20 MEQ/100 ML PREMIX 40 MEQ/200 ML BAG IV ONE (06:34)
[2023-12-18] MEDS: FERROUS SULFATE PO SCH (08:36)
[2023-12-18] MEDS: SODIUM BICARBONATE 8.4% 100 MEQ in LACTATED RINGERS 1,000 ML IV SCH (09:45)
--- NOTE | 2023-12-18 11:58 | PCM ---
Date of Service Date Seen by Provider: 12/18/23 Time Seen by Provider: 08:25 Admit Day/Time Admission Date: 12/17/23 Reason for Admission Chief Complaint: DEHYDRATION, ACUTE RENAL FAILURE Hospital Provider Hospital Provider: JAVED LOU[place] [facility] [place] Primary Care Physician: FRIEDA SCHMIDT MD History of Present Illness History of Present Illness: 88 yo male presented to the ER with weakness. Family reported to ER provider that patient has not been eating or drinking well over the last several days. He was recently admitted for hypokalemia and takes 20 meq QID. K was 2.89 in ER. Also found to be in ANNIE and metabolic acidosis. Had episodes of diarrhea upon arrival to the medical floor. Patient states today that he just has not felt well at home but could not give me specific symptoms. Denies fever, chills, body aches, n/v, or urinary symptoms. UA collected and showed evidence of UTI. Patient admitted initially observation. Case Discussed With Case Discussed With: Patient's case was discussed with the ER Physicians, Dr. Bright [facility] Medical History Elevated PSA quit going to dr osborne R97.20 - Elevated prostate specific antigen [PSA] (ICD-10) Cholelithiases K80.20 - Calculus of gallbladder without cholecystitis without obstruction (ICD-10) AVM (arteriovenous malformation) cecal - x2 Shiben (does not recommend another colonoscopy) Q27.30 - Arteriovenous malformation, site unspecified (ICD-10) Surgical History History of fusion of cervical spine Z98.1 - Arthrodesis status (ICD-10) History of appendectomy Z90.49 - Acquired absence of other specified parts of digestive tract (ICD- 10) Previous back surgery x2 Z98.890 - Other specified postprocedural states (ICD-10) History of cholecystectomy Z90.49 - Acquired absence of other specified parts of digestive tract (ICD- 10) Social History Smoking and tobacco status: Never smoker Substance use type: does not use Special cristian needs: No Agree to transfusion: Yes Adopted: No Caregiver/support person: No Foster care: No Household members: spouse Housing: house Marital status: M Lives independently: Yes Number of children: 4 service: No skilled nursing: No Current occupational status: retired History of recent travel: No Current gender identity: male Seatbelt use: always Drives intoxicated or rides with intoxicated cdl company driver: No Water heater temperature set < 120 degrees: Yes Working smoke detector in home: Yes Fire extinguisher in home: Yes Carbon monoxide detector in home: Yes Allergies Allergies Allergy/AdvReac Type Severity Reaction Status Date / Time quinine AdvReac Unconscious Verified 12/17/23 15:37 ness Current Medications Home Medications atorvastatin 40 mg tablet (Lipitor) 40 mg PO EVERY OTHER DAY #45 tabs 06/29/23 [Rx Confirmed 12/17/23 Last Taken Unknown] ferrous sulfate 325 mg (65 mg iron) tablet See Rx Instructions .Route .COMPLEX #90 tabs 06/29/23 [Rx Confirmed 12/17/23 Last Taken Unknown] tamsulosin 0.4 mg capsule (Flomax) 0.4 mg PO QHS 10/21/23 [History Confirmed 12/17/23 Last Taken Unknown] potassium chloride 20 mEq tablet,extended release 20 meq PO QID #20 tabs 10/22/23 [Rx Confirmed 12/17/23 Last Taken Unknown] Home Acetaminophen (Acetaminophen 325 Mg Tablet) 650 mg PO Q4H PRN PRN Reason: Mild Pain Last Admin: 12/17/23 20:53 Dose: 650 mg Atorvastatin Calcium (Atorvastatin Calcium 20 Mg Tablet) 40 mg PO EVERY OTHER DAY [facility] Ferrous Sulfate (Ferrous Sulfate 324 Mg Tablet.) 324 mg PO DAILY [facility] Last Admin: 12/18/23 08:36 Dose: 324 mg CEFTRIAXONE/D5W 1 GM PREMIX (Rocephin 1 Gm/50 Ml D5w) 1 gm in 50 mls @ 100 mls/hr IV BEDTIME ANUSHKA Stop: 12/20/23 21:59 Sodium Bicarbonate 100 meq/ (Lactated Ringer's) 1,100 mls @ 100 mls/hr IV .Q11H [facility] Last Admin: 12/18/23 09:45 Dose: 100 mls/hr Mirtazapine (Mirtazapine 15 Mg Tablet) 7.5 mg PO BEDTIME ANUSHKA Ondansetron HCl (Ondansetron Hcl/Pf 4 Mg/2 Ml Sdv) 4 mg IVP Q6H PRN PRN Reason: Nausea / Vomiting Potassium Chloride (Potassium Chloride 20 Meq Tab) 20 meq PO QID [facility] Sodium Chloride (0.9% Sodium Chloride 10 Ml Disp.Syrin) 1 syr IVF Q8HR [facility] Tamsulosin HCl (Tamsulosin Hcl 0.4 Mg Cap.Er.24h) 0.4 mg PO BEDTIME [facility] Last Admin: 12/17/23 20:53 Dose: 0.4 mg Discontinued Medications Lactated Ringer's (Lactated Ringers) 1,000 mls @ 1,000 mls/hr IV BOLUS ONE Stop: 12/17/23 16:35 Last Infusion: 12/17/23 18:05 Dose: Infused Potassium Chloride/Sodium Chloride (Sodium Chloride 0.9%-Kcl 40meq) 1,000 mls @ 125 mls/hr IV .Q8H ONE Stop: 12/18/23 00:37 Last Admin: 12/17/23 17:58 Dose: Not Given Lactated Ringer's (Lactated Ringers) 1,000 mls @ 100 mls/hr IV .Q10H [facility] Last Admin: 12/18/23 02:46 Dose: 100 mls/hr CEFTRIAXONE/D5W 1 GM PREMIX (Rocephin 1 Gm/50 Ml D5w) 1 gm in 50 mls @ 100 mls/hr IV Q24H [facility] Stop: 12/20/23 21:59 Last Admin: 12/17/23 22:41 Dose: 100 mls/hr Potassium Chloride (Potassium Chloride 20 Meq/100 Ml Premix) 40 meq in 200 mls @ 50 mls/hr IV ONCE ONE Stop: 12/18/23 10:18 Last Admin: 12/18/23 06:34 Dose: 50 mls/hr Potassium Chloride (Potassium Chloride 20 Meq Tab) 40 meq PO ONCE STA Stop: 12/17/23 16:11 Last Admin: 12/17/23 17:11 Dose: 40 meq Potassium Chloride (Potassium Chloride 20 Meq Tab) 40 meq PO ONCE ONE Stop: 12/18/23 06:20 Last Admin: 12/18/23 06:34 Dose: 40 meq Sodium Chloride (0.9% Sodium Chloride 10 Ml Disp.Syrin) 1 syr IVF PRN PRN PRN Reason: To flush IV Opioid Naive vs. Tolerant Does Patient Take Opioids?: No Is Patient Opioid Naive?: Yes What is Opioid Naive?: *Opioid Naive implies the patient is not already taking opioids or not chronically receiving opioids on a daily basis. *PRN dosing is not "usually" associated with tolerance. *Patients are at higher risk of over-sedation and aspiration. Is Patient Opioid Tolerant?: No What is Opioid Tolerant?: *Opioid Tolerance implies less than the expected response to an opioid. *Acquired tolerance is defined by the patient taking 60mg of oral morphine daily (or equianalgesic dose of another opioid) for 1 week or more. *Often associated with chronic pain. *May take more than usual dose to achieve desired pain control. Review of Systems Constitutional: Reports Weakness and Loss of appetite Head: Reports Normocephalic Eyes: Reports No symptoms Ears: Reports No symptoms Nose: Reports No symptoms Mouth: Reports No symptoms Throat: Reports No symptoms Cardiovascular: Reports No symptoms Respiratory: Reports No symptoms Gastrointestinal: Reports Diarrhea Genitourinary: Reports No Symptoms Musculoskeletal: Reports No symptoms Endocrine: Reports No symptoms Hematology: Reports No symptoms Immunology: Reports No symptoms Neurological: Reports No symptoms Psychiatric: Reports No symptoms Physical examination Most Recent Vital Signs: Most Recent Vital Signs Temperature 97.2 F L 12/18/23 09:46 Temperature Source Tympanic 12/18/23 09:46 Temperature Source Oral 12/17/23 15:43 Pulse Rate 62 12/18/23 09:46 Respiratory Rate 18 12/18/23 09:46 Blood Pressure 119/71 12/18/23 09:46 Blood Pressure Mean 87 12/18/23 09:46 Blood Pressure Left Arm 112/65 12/17/23 17:46 Blood Pressure Location Left Arm 12/18/23 09:46 Blood Pressure Position Supine 12/18/23 09:46 O2 Sat by Pulse Oximetry 96 12/18/23 09:46 Oxygen Delivery Method Room Air 12/18/23 09:46 Height 6 ft 12/17/23 17:46 Weight 129 lb 3 oz 12/17/23 17:46 Telemetry Type Remote Telemetry 12/18/23 07:00 Telemetry Monitoring Continues 12/18/23 07:00 Telemetry Heart Rate 66 12/18/23 07:00 EKG RI Interval 0.20 12/18/23 07:00 EKG QRS Interval 0.12 H 12/18/23 07:00 Telemetry Strip Reading SR with BBB and freq. PAC's 12/18/23 07:00 Appearance: Positive No Apparent Distress, Alert and Oriented x3, Ill-Appearing, Thin and Cachectic Skin: Positive Warm and Good Turgor HEENT: Positive Normocephalic and PERRLA Neck: Positive Supple and Midline Trachea Chest/Lungs: Positive Symmetrical With Equal Breath Sounds, Clear to Auscultation Bilaterally and Good Air Movement all 4 Lung [place] Heart: Positive RRR and Pulses Normal GI/: Positive Soft, Nontender, Bowel Sounds Normal and No Distention Musculoskeletal: Positive Not Examined Extremities: Positive Intact Peripheral Pulses and Stable Joints Without Laxity Neurological: Positive Sensation Intact, Motor intact, Reflexes Intact, Alert, Oriented and Other (generalized ) Labs This Visit Labs This Visit: Labs This Visit 12/17/23 12/17/23 12/17/23 15:44 15:48 16:20 WBC 12.32 H RBC 4.17 L Hgb 12.6 L Hct 38.6 L MCV 92.6 MCH 30.2 MCHC 32.6 RDW Coeff of Carlos 12.8 Plt Count 367 Immature Gran % (Auto) 0.4 Neut % (Auto) 84.6 H Lymph % (Auto) 12.3 [place] % (Auto) 2.4 Eos % (Auto) 0.2 Baso % (Auto) 0.1 Neut # (Auto) 10.4 H Lymph # (Auto) 1.5 [place] # (Auto) 0.3 L Eos # (Auto) 0.0 Baso # (Auto) 0.0 Immature Gran # (Auto) 0.1 Sodium 136.5 Potassium 2.89 L Chloride 103.0 Carbon Dioxide 16.5 L Anion Gap 19.89 BUN 46.0 H Creatinine 2.14 H Estimated GFR (MDRD) 29.00 BUN/Creatinine Ratio 21.49 Glucose 104.9 Lactic Acid 1.31 Calcium 8.95 Total Bilirubin 0.79 AST 28.5 ALT 27.0 Alkaline Phosphatase 123.4 H Total Protein 8.50 H Albumin 3.98 Globulin 4.52 Albumin/Globulin Ratio 0.88 Urine Color Urine Clarity Urine pH Ur Specific [place] Urine Protein Urine Glucose (UA) Urine Ketones Urine Blood Urine Nitrite Urine Bilirubin Urine Urobilinogen Ur Leukocyte Esterase Urine Microscopic WBC Ur Squamous Epith Cells Ur Transition Epith Cell Urine Bacteria Influ A Molecular Assay Negative by naat Influ B Molecular Assay Negative by naat SARS CoV-2 RNA Rapid POONAM Negative 12/17/23 12/18/23 21:08 05:00 WBC 7.41 RBC 3.36 L Hgb 10.0 L Hct 30.6 L D MCV 91.1 MCH 29.8 MCHC 32.7 RDW Coeff of Carlos 13.0 Plt Count 286 Immature Gran % (Auto) 0.4 Neut % (Auto) 63.2 Lymph % (Auto) 26.0 [place] % (Auto) 8.2 Eos % (Auto) 1.8 Baso % (Auto) 0.4 Neut # (Auto) 4.7 Lymph # (Auto) 1.9 [place] # (Auto) 0.6 Eos # (Auto) 0.1 Baso # (Auto) 0.0 Immature Gran # (Auto) 0.0 Sodium 134.9 Potassium 2.76 L* Chloride 108.4 H Carbon Dioxide 18.9 L Anion Gap 10.36 BUN 41.4 H Creatinine 1.68 H Estimated GFR (MDRD) 39.00 BUN/Creatinine Ratio 24.64 Glucose 91.5 Lactic Acid Calcium 8.19 L Total Bilirubin 0.51 AST 26.0 ALT 20.8 Alkaline Phosphatase 94.3 D Total Protein 6.74 Albumin 3.07 L Globulin 3.67 Albumin/Globulin Ratio 0.83 Urine Color Yellow Urine Clarity Cloudy Urine pH 7.5 Ur Specific [place] 1.020 Urine Protein 2+ H Urine Glucose (UA) Negative Urine Ketones 1+ H Urine Blood Negative Urine Nitrite Negative Urine Bilirubin 2+ H Urine Urobilinogen 0.2 Ur Leukocyte Esterase 2+ H Urine Microscopic WBC 20-30 Ur Squamous Epith Cells Not present Ur Transition Epith Cell 0-2 Urine Bacteria 2+ Influ A Molecular Assay Influ B Molecular Assay SARS CoV-2 RNA Rapid POONAM Microbiology This Visit 12/17/23 21:08 Urine,Random Urine Culture - Preliminary Imaging Imaging: EXAM: CHEST RADIOGRAPH TECHNIQUE: Single frontal chest radiograph. HISTORY: Cough COMPARISON: 10/14/2023 FINDINGS: There is centrilobular emphysema with lower lobe fibrosis. No effusion. Atherosclerotic aorta. The heart size is normal. The osseous structures are unremarkable. IMPRESSION: 1. Emphysema with lower lobe fibrosis Review Statement Review Statement: I have independently reviewed and interpreted the labs/EKGs/imaging that were ordered by the ER provider. I have reviewed all outside records that are available currently in our EMR including imaging/notes/labs from previous visits. Plan Plan: 1. Metabolic Acidosis secondary to ANNIE/dehydration - bicarb gtt started today @100mL/hr, repeat labs this afternoon 2. ANNIE - see #1, avoid nephrotoxins/hypotension 3. Severe Hypokalemia - replaced with 40 mEq IV and 40 PO, resumed home 20 mEq PO QID 4. UTI - urine culture showing growth of gram negative rods, rocephin 1G Q24H 5. Loss of appetite - resume mirtazapine 7.5 mg at bedtime DVT Prophylaxis: Ambulation Time Spent: Greater than 80 minutes spent with patient, 50% of the time spent with this patient was devoted to counseling and coordination of care. [facility] minutes spent discussing advance care planning. Disposition: Admit to: Med/surg Inpatient Full code Discussed Plan of Care with Dr. Khai Schmidt. Medications Medication Orders: Medications Ordered Category Date Time Status 0.9 % Sodium Chloride [Saline Flush] Meds 12/18/23 13:00 Active 1 syr IVF Q8HR Acetaminophen [Tylenol] Meds 12/17/23 16:55 Active 650 mg PO Q4H PRN Atorvastatin Calcium [Lipitor] Meds 12/19/23 09:00 Active 40 mg PO EVERY OTHER DAY Ceftriaxone/D5w 1 gm Premix [Rocephin 1 gm/50 ml D5w] Meds 12/18/23 21:00 Active 1 gm in 50 ml IV BEDTIME Ferrous Sulfate Meds 12/18/23 09:00 Active 324 mg PO DAILY Mirtazapine [Remeron] Meds 12/18/23 21:00 Active 7.5 mg PO BEDTIME Ondansetron HCl/Pf [Zofran 4 mg/2 ml] Meds 12/17/23 16:58 Active 4 mg IVP Q6H PRN Potassium Chloride [K-Dur] Meds 12/18/23 13:00 Active 20 meq PO QID Ringers Lactated Solution [Lactated Ringers] 1,000 ml Meds 12/18/23 08:30 Active Sodium Bicarb 8.4% Vial [Sodium Bicarbonate 8.4%] 100 meq IV 100 mls/hr Tamsulosin HCl [Flomax] Meds 12/17/23 20:00 Active 0.4 mg PO BEDTIME
[2023-12-18] MEDS: K-DUR PO SCH (13:26)
[2023-12-18 14:18] LABS: CALCIUM 8.14 mg/dL (8.4-10.2); CARBON DIOXIDE 23.8 mmol/L (22-30.0); CHLORIDE 106.1 mmol/L (98-107); CREATININE 1.41 mg/dL (0.60-1.10); GLUCOSE 110.7 mg/dL (74-106); POTASSIUM 3.77 mmol/L (3.5-5.1); SODIUM 135.1 mmol/L (134.5-145)
[2023-12-18] MEDS: ROCEPHIN 1 GM/50 ML D5W 1 GM/50 ML BAG IV SCH (20:44)
[2023-12-18] MEDS: REMERON PO SCH (20:45)
[2023-12-18] MEDS: SODIUM BICARBONATE 8.4% ONE (21:24)
[2023-12-18] MEDS: LACTATED RINGERS 1,000 ML IV SCH (22:41)
[2023-12-19 06:17] LABS: BASOPHILS % (AUTO) 0.4 % (0.0-3.0); EOSINOPHILS # (AUTO) 0.2 K/ul (0.0-0.7); EOSINOPHILS % (AUTO) 2.6 % (0.0-7.0); HEMATOCRIT 27.5 % (42.0-52.0); HEMOGLOBIN 9.1 g/dl (14.0-18.0); IMMATURE GRANULOCYTE % (AUTO) 0.4 % (0.0-5.0); LYMPHOCYTES # (AUTO) 1.9 K/uL (0.60-3.4); LYMPHOCYTES % (AUTO) 26.8 (10.0-50.0); MEAN CORPUSCULAR HEMOGLOBIN 30.2 pg (27.0-31.0); MEAN CORPUSCULAR HGB CONC 33.1 (31.8-35.4); MEAN CORPUSCULAR VOLUME 91.4 fl (80.0-94.0); MONOCYTES # (AUTO) 0.5 K/uL (0.4-2.0); MONOCYTES % (AUTO) 6.4 (0-10); NEUTROPHILS # (AUTO) 4.5 K/ul (2.0-6.9); NEUTROPHILS % (AUTO) 63.4 % (42.2-75.2); PLATELET COUNT 263 10^3/uL (140-440); RED BLOOD COUNT 3.01 10^6/ul (4.70-6.10); WHITE BLOOD COUNT 7.05 K/ul (4.2-10.2)
[2023-12-19 06:34] LABS: ALANINE AMINOTRANSFERASE 18.4 U/L (0-50); ALBUMIN 2.81 g/dL (3.5-5.0); ALKALINE PHOSPHATASE 109.6 U/L (56-119); ASPARTATE AMINO TRANSFERASE 23.5 U/L (17-59); BILIRUBIN,TOTAL 0.4 mg/dL (0.2-1.3); BLOOD UREA NITROGEN 26.4 mg/dL (9-20); CALCIUM 8.23 mg/dL (8.4-10.2); CARBON DIOXIDE 26.2 mmol/L (22-30.0); CREATININE 1.14 mg/dL (0.60-1.10); GLUCOSE 90.7 mg/dL (74-106); POTASSIUM 3.74 mmol/L (3.5-5.1); SODIUM 138.8 mmol/L (134.5-145); TOTAL PROTEIN 6.34 g/dL (6.3-8.2)
[2023-12-19 06:37] LABS: CREATININE, URINE 293.7 mg/dL (Not Estab.)
[2023-12-19] MEDS: LIPITOR PO SCH (08:05)
--- NOTE | 2023-12-19 10:58 | PCM.PROG ---
Date/Time Seen Date Seen by Provider: 12/19/23 Time Seen by Provider: 08:30 Provider Provider: Naz [facility] Chief Complaint Chief Complaint: DEHYDRATION, ACUTE RENAL FAILURE Subjective Subjective: Patient states that he feels weak. He's unsure if he's well enough to go home today. He denies diarrhea. States he was able to eat his whole breakfast this morning. Objective Appearance: Positive No Apparent Distress and Alert and Oriented x3 Chest/Lungs: Positive Clear to Auscultation Bilaterally; Negative Rales, Rhonci or Wheezes Heart: Positive RRR GI/: Positive Soft, Nontender, Bowel Sounds Normal and No Distention Neurological: Positive Alert, Oriented and Other (+generalized weakness ) Vital Signs Vital Signs: Vital Signs: Last 24 Hours 12/18/23 13:00 12/18/23 14:00 12/18/23 17:15 Temperature 97.3 F L 97.9 F Temperature Source Tympanic Tympanic Pulse Rate 65 64 Respiratory Rate 18 18 Blood Pressure 97/44 L 106/56 L Blood Pressure Mean 61 72 Blood Pressure Location Left Arm Right Arm Blood Pressure Position Sitting Sitting O2 Sat by Pulse Oximetry 99 97 Oxygen Delivery Method Room Air Room Air Telemetry Type Remote Telemetry Telemetry Monitoring Continues Telemetry Heart Rate 67 EKG NV Interval 0.20 EKG QRS Interval 0.09 Telemetry Strip Reading NSR 12/18/23 19:00 12/18/23 20:00 12/18/23 21:34 Temperature 98.4 F Temperature Source Temporal Artery Scan Pulse Rate 66 Respiratory Rate 18 16 Blood Pressure 89/55 L Blood Pressure Mean 66 Blood Pressure Location Right Arm Blood Pressure Position Supine O2 Sat by Pulse Oximetry 96 Oxygen Delivery Method Room Air Telemetry Type Remote Telemetry Telemetry Monitoring Continues Telemetry Heart Rate 69 EKG NV Interval 0.17 EKG QRS Interval 0.07 Telemetry Strip Reading SINUS RHYTHM 12/19/23 01:00 12/19/23 02:00 12/19/23 05:06 Temperature 97.9 F Temperature Source Temporal Artery Scan Pulse Rate 68 67 Respiratory Rate 16 18 Blood Pressure 112/70 Blood Pressure Mean 84 Blood Pressure Location Left Arm Blood Pressure Position Supine O2 Sat by Pulse Oximetry 97 Oxygen Delivery Method Room Air Room Air Telemetry Type Remote Telemetry Telemetry Monitoring Continues Telemetry Heart Rate 65 EKG NV Interval 0.18 EKG QRS Interval 0.08 Telemetry Strip Reading SINUS RHYTHM 12/19/23 07:00 12/19/23 10:00 Temperature 98.1 F Temperature Source Temporal Artery Scan Pulse Rate 72 Respiratory Rate 14 Blood Pressure 91/49 L Blood Pressure Mean 63 Blood Pressure Location Right Arm Blood Pressure Position O2 Sat by Pulse Oximetry 98 Oxygen Delivery Method Room Air Telemetry Type Remote Telemetry Telemetry Monitoring Continues Telemetry Heart Rate 63 EKG NV Interval 0.19 EKG QRS Interval 0.08 Telemetry Strip Reading SR Lab Results Lab Results: Lab Results: Last 24 Hours 12/19/23 12/18/23 12/17/23 05:11 14:00 21:08 WBC 7.05 RBC 3.01 L Hgb 9.1 L Hct 27.5 L MCV 91.4 MCH 30.2 MCHC 33.1 RDW Coeff of Carlos 13.0 Plt Count 263 Immature Gran % (Auto) 0.4 Neut % (Auto) 63.4 Lymph % (Auto) 26.8 [place] % (Auto) 6.4 Eos % (Auto) 2.6 Baso % (Auto) 0.4 Neut # (Auto) 4.5 Lymph # (Auto) 1.9 [place] # (Auto) 0.5 Eos # (Auto) 0.2 Baso # (Auto) 0.0 Immature Gran # (Auto) 0.0 Sodium 138.8 135.1 Potassium 3.74 3.77 Chloride 111.0 H 106.1 Carbon Dioxide 26.2 23.8 Anion Gap 5.34 8.97 BUN 26.4 H 36.0 H Creatinine 1.14 H 1.41 H Estimated GFR (MDRD) 61.00 48.00 BUN/Creatinine Ratio 23.15 25.53 Glucose 90.7 110.7 H Calcium 8.23 L 8.14 L Total Bilirubin 0.40 AST 23.5 ALT 18.4 Alkaline Phosphatase 109.6 Total Protein 6.34 Albumin 2.81 L Globulin 3.53 Albumin/Globulin Ratio 0.79 Ur Random Sodium 23 Urine Creatinine 293.7 Additional Comments Additional Comments: I have independently reviewed and interpreted the labs/EKGs/imaging ordered during this hospital stay. I have reviewed outside records that are available in our EMR that pertain to medical stay including imaging/notes/labs from previous visits. Active Medications Active Medications: Medications Generic Name Dose Route Start Last Admin Trade Name Freq PRN Reason Stop Dose Admin Acetaminophen 650 mg 12/17/23 16:55 12/17/23 20:53 Acetaminophen 325 Mg Tablet PO 650 mg Q4H PRN Administration Mild Pain Atorvastatin Calcium 40 mg 12/19/23 09:00 12/19/23 08:05 Atorvastatin Calcium 20 Mg Tablet PO 40 mg EVERY OTHER DAY ANUSHKA Administration Ferrous Sulfate 324 mg 12/18/23 09:00 12/19/23 08:05 Ferrous Sulfate 324 Mg Tablet.Dr PO 324 mg DAILY ANUSHKA Administration CEFTRIAXONE/D5W 1 GM PREMIX 1 gm in 50 mls @ 100 mls/hr 12/18/23 21:00 12/18/23 20:44 Rocephin 1 Gm/50 Ml D5w IV 12/20/23 21:59 100 mls/hr BEDTIME ANUSHKA Administration Lactated Ringer's 1,000 mls @ 100 mls/hr 12/18/23 22:00 12/18/23 22:41 Lactated Ringers IV 100 mls/hr .Q10H ANUSHKA Administration Mirtazapine 7.5 mg 12/18/23 21:00 12/18/23 20:45 Mirtazapine 15 Mg Tablet PO 7.5 mg BEDTIME ANUSHKA Administration Ondansetron HCl 4 mg 12/17/23 16:58 Ondansetron Hcl/Pf 4 Mg/2 Ml Sdv IVP Q6H PRN Nausea / Vomiting Potassium Chloride 20 meq 12/18/23 13:00 12/19/23 08:05 Potassium Chloride 20 Meq Tab PO 20 meq QID ANUSHKA Administration Sodium Chloride 1 syr 12/18/23 13:00 12/19/23 05:01 0.9% Sodium Chloride 10 Ml Disp.Syrin IVF Not Given Q8HR [facility] Tamsulosin HCl 0.4 mg 12/17/23 20:00 12/18/23 20:45 Tamsulosin Hcl 0.4 Mg Cap.Er.24h PO 0.4 mg BEDTIME ANUSHKA Administration Plan Plan: 1. Metabolic Acidosis secondary to ANNIE/dehydration - Resolved, bicarb drip stopped. 2. ANNIE - Improved. BUN not yet at baseline. Cont LR. Avoid nephrotoxins/hypotension 3. Severe Hypokalemia - Improved, gave additional 40 meq today. 4. UTI due to Providencia Rettgeri - Gram neg organism, cont rocephin 1G Q24H 5. Loss of appetite - resume mirtazapine 7.5 mg at bedtime Dispo: Possible dc tomorrow Review Statement Review Statement: I have personally discussed and reviewed the patient's visit/currently labs/imaging/decision making with Dr. Schmidt, my supervising attending. Greater that 50 minutes spent with patient, 50% of the time spent with this patient was devoted to counseling and coordination of care.
[2023-12-20 05:38] LABS: BASOPHILS % (AUTO) 0.2 % (0.0-3.0); EOSINOPHILS # (AUTO) 0.2 K/ul (0.0-0.7); EOSINOPHILS % (AUTO) 1.9 % (0.0-7.0); HEMATOCRIT 31.3 % (42.0-52.0); HEMOGLOBIN 9.9 g/dl (14.0-18.0); IMMATURE GRANULOCYTE # (AUTO) 0.1 (0.0-1.0); IMMATURE GRANULOCYTE % (AUTO) 0.6 % (0.0-5.0); LYMPHOCYTES # (AUTO) 1.9 K/uL (0.60-3.4); LYMPHOCYTES % (AUTO) 21.6 (10.0-50.0); MEAN CORPUSCULAR HEMOGLOBIN 29.8 pg (27.0-31.0); MEAN CORPUSCULAR HGB CONC 31.6 (31.8-35.4); MEAN CORPUSCULAR VOLUME 94.3 fl (80.0-94.0); MONOCYTES # (AUTO) 0.5 K/uL (0.4-2.0); NEUTROPHILS # (AUTO) 6.1 K/ul (2.0-6.9); NEUTROPHILS % (AUTO) 69.7 % (42.2-75.2); PLATELET COUNT 250 10^3/uL (140-440); RDW COEFFICIENT OF VARIATION 13.2 % (11.6-14.8); RED BLOOD COUNT 3.32 10^6/ul (4.70-6.10); WHITE BLOOD COUNT 8.73 K/ul (4.2-10.2)
[2023-12-20 05:59] LABS: ALANINE AMINOTRANSFERASE 19.6 U/L (0-50); ALBUMIN 2.92 g/dL (3.5-5.0); ALKALINE PHOSPHATASE 136.3 U/L (56-119); ASPARTATE AMINO TRANSFERASE 26.4 U/L (17-59); BILIRUBIN,TOTAL 0.34 mg/dL (0.2-1.3); BLOOD UREA NITROGEN 19.1 mg/dL (9-20); CALCIUM 8.13 mg/dL (8.4-10.2); CARBON DIOXIDE 25.8 mmol/L (22-30.0); CREATININE 1.03 mg/dL (0.60-1.10); GLUCOSE 95.4 mg/dL (74-106); POTASSIUM 4.1 mmol/L (3.5-5.1); SODIUM 139.3 mmol/L (134.5-145); TOTAL PROTEIN 6.5 g/dL (6.3-8.2)
--- NOTE | 2023-12-20 09:07 | DCSUM ---
Admission Date Admission Date: 12/17/23 Discharge Date Discharge Date: 12/20/23 Admission Diagnosis Admission Diagnosis: 1. Metabolic Acidosis secondary to ANNIE/dehydration 2. ANNIE 3. Severe Hypokalemia 4. UTI 5. Loss of appetite Discharge Diagnosis Discharge Diagnosis: 1. Metabolic Acidosis secondary to ANNIE/dehydration - Resolved 2. ANNIE - Resolved 3. Severe Hypokalemia - Resolved 4. UTI - Improving 5. Loss of appetite Hospital Provider Hospital Provider: JAVED LOUISE, [facility] [place] Primary Care Physician Primary Care Physician: FRIEDA GUZMAN MD Summary of History and Physical Summary of History and Physical: 88 yo male presented to the ER with weakness. Family reported to ER provider that patient has not been eating or drinking well over the last several days. He was recently admitted for hypokalemia and takes 20 meq QID. K was 2.89 in ER. Also found to be in ANNIE and metabolic acidosis. Had episodes of diarrhea upon arrival to the medical floor. Patient states today that he just has not felt well at home but could not give me specific symptoms. Denies fever, chills, body aches, n/v, or urinary symptoms. UA collected and showed evidence of UTI. Patient admitted initially observation. Hospital Course Subjective: During course of stay, patient was treated for metabolic acidosis secondary to ANNIE. He was on a bicarb gtt over 24 hours. Stopped yesterday and initiated LR. ANNIE resolved with bicarb and fluids. Hypokalemia resolved with replacement. Resumed home 20 mEq QID. d/c with BID. Patient was found to have UTI on admission. Treated with rocephin. Urine culture grew providencia rettgeri. Gram negative organism. D/c with cefpodoxime Had previously been on mirtazapine 7.5 mg at bedtime for loss of appetite. PCP attributed falls/weakness at home. Weakness resolved with treatment of UTI. Resumed during stay and tolerated well. Appearance: Pleasant, No Apparent Distress and Alert HEENT: MMM, Supple and No JVD CVS: No Murmur, No Rubs and No Gallop Abdomen: Soft, Non-Tender and No Distention Respiratory: No Dyspnea Extremities: No Edema Vital Signs: Most Recent Vital Signs Temperature 98.6 F 12/20/23 05:57 Temperature Source Temporal Artery Scan 12/20/23 05:57 Temperature Source Oral 12/17/23 15:43 Pulse Rate 70 12/20/23 05:57 Respiratory Rate 16 12/20/23 05:57 Blood Pressure 112/76 12/20/23 05:57 Blood Pressure Mean 88 12/20/23 05:57 Blood Pressure Left Arm 112/65 12/17/23 17:46 Blood Pressure Location Left Arm 12/20/23 05:57 Blood Pressure Position Supine 12/20/23 05:57 O2 Sat by Pulse Oximetry 96 12/20/23 05:57 Oxygen Delivery Method Room Air 12/20/23 05:57 Height 6 ft 12/19/23 18:09 Weight 129 lb 3 oz 12/19/23 18:09 Telemetry Type Remote Telemetry 12/20/23 07:00 Telemetry Monitoring Continues 12/20/23 07:00 Telemetry Heart Rate 89 12/20/23 07:00 EKG DC Interval 0.17 12/20/23 07:00 EKG QRS Interval 0.07 12/20/23 07:00 Telemetry Strip Reading SR 12/20/23 07:00 Lab Results Last 24 Hours: 12/20/23 05:28 WBC 8.73 RBC 3.32 L Hgb 9.9 L Hct 31.3 L MCV 94.3 H MCH 29.8 MCHC 31.6 L RDW Coeff of Carlos 13.2 Plt Count 250 Immature Gran % (Auto) 0.6 Neut % (Auto) 69.7 Lymph % (Auto) 21.6 [place] % (Auto) 6.0 Eos % (Auto) 1.9 Baso % (Auto) 0.2 Neut # (Auto) 6.1 Lymph # (Auto) 1.9 [place] # (Auto) 0.5 Eos # (Auto) 0.2 Baso # (Auto) 0.0 Immature Gran # (Auto) 0.1 Sodium 139.3 Potassium 4.10 Chloride 110.0 H Carbon Dioxide 25.8 Anion Gap 7.60 BUN 19.1 Creatinine 1.03 Estimated GFR (MDRD) 68.00 BUN/Creatinine Ratio 18.54 Glucose 95.4 Calcium 8.13 L Total Bilirubin 0.34 AST 26.4 ALT 19.6 Alkaline Phosphatase 136.3 H D Total Protein 6.50 Albumin 2.92 L Globulin 3.58 Albumin/Globulin Ratio 0.81 Discharge Instructions Discharge Planning: Discharge Planning > 40 minutes If patient is discharged with left ventricular systolic dysfunction: NA Discharged with a beta ever? [] If no, why not? [] Discharged with an kerry/arb? [] If no, why not? [] DX: METABOLIC ACIDOSIS, ANNIE, UTI RX: CEFPODOXIME, POTASSIUM REGULAR DIET ACTIVITY TOLERATED FOLLOW-UP WITH PCP THIS WEEK Discharge Medications: Medications at Discharge (Home Meds & RX) atorvastatin 40 mg tablet (Lipitor) 40 mg PO EVERY OTHER DAY #45 tabs 06/29/23 ferrous sulfate 325 mg (65 mg iron) tablet See Rx Instructions .Route .COMPLEX #90 tabs 06/29/23 tamsulosin 0.4 mg capsule (Flomax) 0.4 mg PO QHS 10/21/23 potassium chloride 20 mEq tablet,extended release 20 meq PO QID #20 tabs 10/22/23 Discharge Plan Discharge Discharge Orders: Discharge Patient (ONCE); Ordered 12/20/23 Ordered By: SOWMYA VALLEJO Activity Restrictions/Additional Instructions: Regular diet Activity as tolerated Follow-up with PCP next week Medications: Cefpodoxime 200 mg twice a day for 7 days for UTI Continue taking potassium 20 mEq twice a day until discontinued by PCP Restart taking mirtazepine 7.5 mg for appetite and depression Instructions: Dehydration (GEN), Urinary Tract Infection in Men (GEN) Care Plan Goals: Problem: Infection Goal #1: No signs/symptoms of infection Instructions: Monitor for sign/symptoms of infection Monitor temperature Goal #2: White blood cell counts Within Normal Limits Instructions: Obtain labs per physician orders Patient Disposition: HOME WITH FAMILY CARE Prescriptions: New mirtazapine 15 mg Tablet 7.5 mg PO BEDTIME Qty: 30 0RF cefpodoxime 200 mg tablet 200 mg PO BID Qty: 14 0RF Rx Instructions: must administer with a meal/food Continued atorvastatin [Lipitor] 40 mg tablet 40 mg PO EVERY OTHER DAY Qty: 45 1RF ferrous sulfate 325 mg (65 mg iron) tablet See Rx Instructions .ROUTE .COMPLEX Qty: 90 1RF Dose Instruction: TAKE 1 TABLET BY MOUTH EVERY DAY Rx Instructions: TAKE 1 TABLET BY MOUTH EVERY DAY tamsulosin [Flomax] 0.4 mg capsule 0.4 mg PO QHS Changed potassium chloride 20 mEq tablet extended release 20 meq PO BID Qty: 20 0RF Did you review [place] PARKING LOT ATTENDANT AND CASHIER for ALL controlled substances?: No Discussed opioids are addictive and Narcan is available by prescription or from pharmacy.: No Condition: Stable
[2023-12-20 10:10] VITALS: BP 128/81; PULSE 88; RESP 18; TEMP 98.2
== END 2023-12-20 10:50 | disposition home or self-care (01) | DRG 683 ==
LOC: ED 15:18 → MEDSURG B 15:18
PROVIDERS: ADMIT Hospitalist; ATTEND Nurse Practitioner Family
DX: Z20.822 Contact with and (suspected) exposure to COVID-19; E87.6 Hypokalemia; E87.21 Acute metabolic acidosis; B96.89 Other specified bacterial agents as the cause of diseases classified elsewhere; R19.7 Diarrhea, unspecified; J84.10 Pulmonary fibrosis, unspecified; E86.0 Dehydration; R63.0 Anorexia; Z51.81 Encounter for therapeutic drug level monitoring; J43.9 Emphysema, unspecified; N17.9 Acute kidney failure, unspecified; D72.829 Elevated white blood cell count, unspecified; N39.0 Urinary tract infection, site not specified; Z79.899 Other long term (current) drug therapy

== ENCOUNTER 2024-10-26 18:18 | Inpatient (IN) ==
--- NOTE | 2024-10-26 18:27 | ED.PDOC ---
General ED Provider: Dr. YUMIKO JOHNSON MD Chief Complaint: Weakness Stated Complaint: Patient presents to ER via EMS from [facility] facility complaining of worsening weakness. EMS reports that they were called because patient's son was concerned because he just seems significantly weaker throughout the day. States that he has a history of recurrent UTIs. Says that he also started running a fever Tmax 103 earlier today. Denies any nausea, vomiting, diarrhea, shortness of breath, chest or abdominal pain. No other complaints at this time. Of note, patient is significantly hard of hearing but is A&O x 3 (person, place, situation). Time Seen by Provider: 10/26/24 18:23 Mode of Arrival: Ambulance Information Source: Patient Exam Limitations: No limitations Primary Care Provider: FRIEDA GUZMAN MD Nursing and Triage Documentation Reviewed and Agree: Yes What is Opioid Naive?: *Opioid Naive implies the patient is not already taking opioids or not chronically receiving opioids on a daily basis. *PRN dosing is not "usually" associated with tolerance. *Patients are at higher risk of over-sedation and aspiration. What is Opioid Tolerant?: *Opioid Tolerance implies less than the expected response to an opioid. *Acquired tolerance is defined by the patient taking 60mg of oral morphine daily (or equianalgesic dose of another opioid) for 1 week or more. *Often associated with chronic pain. *May take more than usual dose to achieve desired pain control. Review of Systems Review Of Systems Constitutional: Reports Fever (Tmax 103 F) and Weakness All Other Systems: Reviewed and Negative (Except for those listed in the HPI above.) [facility] Medical History Elevated PSA quit going to dr osborne R97.20 - Elevated prostate specific antigen [PSA] (ICD-10) Cholelithiases K80.20 - Calculus of gallbladder without cholecystitis without obstruction (ICD-10) AVM (arteriovenous malformation) cecal - x2 Shiben (does not recommend another colonoscopy) Q27.30 - Arteriovenous malformation, site unspecified (ICD-10) Social History Smoking and tobacco status: Never smoker Smokeless tobacco user: chewing tobacco Substance use type: does not use Special cristian needs: No Agree to transfusion: Yes Adopted: No Caregiver/support person: No Foster care: No Household members: spouse Housing: house Marital status: M Lives independently: Yes Number of children: 4 service: No long-term: No Current occupational status: retired History of recent travel: No Current gender identity: male Seatbelt use: always Drives intoxicated or rides with intoxicated tank wagon driver: No Water heater temperature set < 120 degrees: Yes Working smoke detector in home: Yes Fire extinguisher in home: Yes Carbon monoxide detector in home: Yes Surgical History History of fusion of cervical spine Z98.1 - Arthrodesis status (ICD-10) History of appendectomy Z90.49 - Acquired absence of other specified parts of digestive tract (ICD- 10) Previous back surgery x2 Z98.890 - Other specified postprocedural states (ICD-10) History of cholecystectomy Z90.49 - Acquired absence of other specified parts of digestive tract (ICD- 10) Physical Exam Physical Exam Appearance: Reports Ill-appearing Ill-appearing: Mild Pain Distress: None Eyes: Reports BO, EOMI and Conjunctiva clear ENT: Reports Ears normal, Nose normal and Other (Tobacco chew stain noted around lips) Neck: Supple Respiratory: Reports Airway patent, Breath sounds clear, Breath sounds equal, Breath sounds diminished (Bibasilar diminished breath sounds) and Respirations nonlabored Cardiovascular: Reports RRR, Pulses normal, No rub and No murmur GI/: Reports Soft, Nontender and No masses Musculoskeletal: Reports Normal strength and ROM intact Skin: Reports Warm, Dry and Normal color Neurological: Reports Sensation intact, Motor intact, Alert and Oriented Psychiatric: Reports Affect appropriate and Mood appropriate Interpretation EKG Interpretation EKG Interpretation By: ED Physician Time of EKG #1: 19:18 Rate: Tachy Rhythm: Sinus Ectopy: None [place]: NL ST Segment: Normal Interpretation: Sinus tachycardia, abnormal EKG. Radiology Interpretation Radiology Interpretation By: ED Physician Radiology Results: Positive Exam Interpreted: CXR Xray Comments: Bibasilar pneumonia Course Course 10/26/24 18:49 10/26/24 18:49 Orders, Labs, Meds: Lab Review 10/26/24 10/26/24 10/26/24 18:32 18:45 18:49 WBC 8.11 RBC 3.43 L Hgb 10.4 L Hct 33.1 L MCV 96.5 H MCH 30.3 MCHC 31.4 L RDW Coeff of Carlos 14.6 Plt Count 203 Immature Gran % (Auto) 0.4 Neut % (Auto) 78.5 H Lymph % (Auto) 11.3 [place] % (Auto) 8.9 Eos % (Auto) 0.7 Baso % (Auto) 0.2 Neut # (Auto) 6.4 Lymph # (Auto) 0.9 [place] # (Auto) 0.7 Eos # (Auto) 0.1 Baso # (Auto) 0.0 Immature Gran # (Auto) 0.0 ESR 63 H PT 11.3 H INR 1.10 Sodium 138.5 Potassium 4.61 Chloride 106.2 Carbon Dioxide 21.7 L Anion Gap 15.21 BUN 35.4 H Creatinine 0.99 Estimated GFR (MDRD) 72.00 BUN/Creatinine Ratio 35.75 Glucose 127.7 H Lactic Acid 1.68 Calcium 8.21 L Magnesium 1.78 Total Bilirubin 0.45 AST 51.3 ALT 57.5 H Alkaline Phosphatase 123.3 H Troponin I < 0.012 Total Protein 8.18 Albumin 3.72 Globulin 4.46 Albumin/Globulin Ratio 0.83 Procalcitonin 0.09 H Urine Color Yellow Urine Clarity Cloudy Urine pH 7.5 Ur Specific [place] 1.020 Urine Protein 1+ H Urine Glucose (UA) Negative Urine Ketones Trace H Urine Blood Negative Urine Nitrite Negative Urine Bilirubin Negative Urine Urobilinogen 1.0 H Ur Leukocyte Esterase 2+ H Urine Microscopic RBC 0-2 Urine Microscopic WBC 30-50 Ur Squamous Epith Cells Not present Urine Bacteria 2+ Influ A Molecular Assay Negative by naat Influ B Molecular Assay Negative by naat SARS CoV-2 RNA Rapid POONAM Positive H Orders Category Date Time Status ADMIT PATIENT INPATIENT .TO [facility] (MONITORED BED) ADMISSION 10/26/24 22:15 Active EKG-(ED ONLY) Stat CARDIO 10/26/24 19:04 Completed TELEMETRY MONITORING TELE CARE 10/26/24 22:15 Active ED APPLY O2 .ONCE EMERGENCY 10/26/24 18:24 Active ED NOVELTY TWISTER TENDER APPLIED .ONCE EMERGENCY 10/26/24 18:24 Active ED IV/MEDIPORT/POWERPORT .ONCE EMERGENCY 10/26/24 18:24 Active ED VITAL SIGNS .ONCE EMERGENCY 10/26/24 18:24 Active OXYGEN [ED APPLY O2] .ONCE EMERGENCY 10/26/24 19:13 Active BLOOD CULTURE (ED ONLY) Stat LAB 10/26/24 18:49 Received C-REACTIVE PROTEIN Stat LAB 10/26/24 18:24 Ordered CBC W/ AUTO DIFF Stat LAB 10/26/24 18:49 Completed COMPREHENSIVE METABOLIC PANEL Stat LAB 10/26/24 18:49 Completed ESR Stat LAB 10/26/24 18:49 Completed FLU A/B MOLECULAR Stat LAB 10/26/24 18:32 Completed LACTIC ACID Stat LAB 10/26/24 18:49 Completed MAGNESIUM Stat LAB 10/26/24 18:49 Completed PROCALCITONIN Stat LAB 10/26/24 18:49 Completed PT WITH INR Stat LAB 10/26/24 18:45 Completed SARS COV-2 RNA RAPID POONAM Stat LAB 10/26/24 18:32 Completed TROPONIN I Stat LAB 10/26/24 18:49 Completed URINALYSIS C & S IF INDICATED Stat LAB 10/26/24 18:32 Completed URINE CULTURE Stat LAB 10/26/24 18:54 Received 0.9 % Sodium Chloride [Saline Flush] Meds 10/26/24 18:24 Active 1 syr IVF PRN PRN Acetaminophen Meds 10/26/24 18:24 Discontinued 1,000 mg in 100 ml IV ONCE Cefepime 2 gm/D5w [Maxipime 2 gm/50 ml D5w] Meds 10/26/24 19:10 Discontinued 2 gm in 50 ml IV ONCE Methylprednisolone Sod Succ/Pf [Solu-Medrol 125 mg] Meds 10/26/24 20:55 Discontinued 125 mg IVP ONCE STA Sodium Chloride 0.9% [Sodium Chloride] 1,000 ml Meds 10/26/24 19:12 Discontinued IV 100 mls/hr Sodium Chloride 0.9% [Sodium Chloride] 1,000 ml Meds 10/26/24 18:24 Discontinued IV BOLUS CHEST, 1V AP ONLY Stat RADS 10/26/24 18:[address] HEAD W/O CONTRAST Stat RADS 10/26/24 18:56 Completed Medications Generic Name Dose Route Start Last Admin Trade Name Freq PRN Reason Stop Dose Admin Albuterol/Ipratropium 3 ml 10/27/24 02:00 Ipratropium/Albuterol Vial.Neb NEB RTQ4H ANUSHKA CEFTRIAXONE/D5W 1 GM PREMIX 1 gm in 50 mls @ 100 mls/hr 10/27/24 09:00 Rocephin 1 Gm/50 Ml D5w IV 10/30/24 08:59 DAILY ANUSHKA Sodium Chloride 1,000 mls @ 200 mls/hr 10/27/24 02:00 10/27/24 02:00 Sodium Chloride IV 200 mls/hr .Q5H ANUSHKA Administration VANCOMYCIN/WATER FOR INJ (PEG) 750 mg in 150 mls @ 150 mls/hr 10/27/24 02:30 10/27/24 02:39 Vancomycin 750 Mg/150 Ml Bag IV 10/30/24 02:29 150 mls/hr Q12H ANUSHKA Administration Ondansetron HCl 4 mg 10/27/24 01:43 Ondansetron Hcl/Pf 4 Mg/2 Ml Sdv IVP Q6H PRN Nausea / Vomiting Sodium Chloride 1 syr 10/26/24 18:24 0.9% Sodium Chloride 10 Ml Disp.Syrin IVF PRN PRN To flush IV Discontinued Medications Generic Name Dose Route Start Last Admin Trade Name Freq PRN Reason Stop Dose Admin Sodium Chloride 1,000 mls @ 1,000 mls/hr 10/26/24 18:24 10/26/24 19:46 Sodium Chloride IV 10/26/24 19:23 Infused BOLUS STA Infusion Acetaminophen 1,000 mg in 100 mls @ 400 mls/hr 10/26/24 18:24 10/26/24 18:46 Acetaminophen IV 10/26/24 18:38 400 mls/hr ONCE STA Administration CEFEPIME 2 GM/D5W 2 gm in 50 mls @ 100 mls/hr 10/26/24 19:10 10/26/24 20:00 Maxipime 2 Gm/50 Ml D5w IV 10/26/24 19:39 100 mls/hr ONCE STA Administration Sodium Chloride 1,000 mls @ 100 mls/hr 10/26/24 19:12 10/26/24 20:07 Sodium Chloride IV 10/27/24 05:11 100 mls/hr .Q10H STA Administration VANCOMYCIN/WATER FOR INJ (PEG) 1 gm in 200 mls @ 200 mls/hr 10/27/24 01:43 Vancomycin 1 Gram/200 Ml Premix IV 10/30/24 01:42 DAILY ANUSHKA Methylprednisolone Sodium Succinate 125 mg 10/26/24 20:55 10/26/24 21:00 Methylprednisolone Sod Succ/Pf 125 Mg/2 Ml Vial IVP 10/26/24 20:56 125 mg ONCE STA Administration [address] [address] Diagnostic Imaging Diagnostic Imaging Report : [id number] Signed Patient: MARTIN HIDALGO Acct:[id number] Medical Record: [id number] : 1935 Loc: ED Room/Bed: Age/Sex: 89 / M ADM Status: REG ER Date of Service: 10/26/24 Ordering Physician: YUMIKO JOHNSON MD Procedure(s): CHEST, 1V AP ONLY Report Number(s): [id number] Accession Number(s): [id number] cc: FRIEDA GUZMAN MD; YUMIKO JOHNSON MD EXAM: CHEST RADIOGRAPH TECHNIQUE: Single frontal chest radiograph. HISTORY: Diminished breath sounds. Positive COVID-19. COMPARISON: 09/21/2024. Correlation is also made with CT chest from 07/04/2024. FINDINGS: The lungs are hyperexpanded, as before. Bibasilar infiltrates, stable on the left and new on the right. No pleural effusion or pneumothorax is seen. Heart size is normal. No acute displaced rib fractures are identified. IMPRESSION: 1. Stable findings of emphysema. 2. Bibasilar pneumonia, stable on the left, and new on the right. Dictated By: SARAI MORENO MD Signed By: SARAI MORENO MD Dictated Date/Time: 10/26/242012 Transcribed Date/Time: 10/26/242012 Signed Date/Time: 10/26/24[address] Report : [id number] Signed Patient: MARTIN HIDALGO Acct:[id number] Medical Record: [id number] : 1935 Loc: ED Room/Bed: Age/Sex: 89 / M ADM Status: REG ER Date of Service: 10/26/24 Ordering Physician: YUMIKO JOHNSON MD Procedure(s): CT HEAD W/O CONTRAST Report Number(s): [id number] Accession Number(s): [id number] cc: FRIEDA GUZMAN MD; YUMIKO JOHNSON MD EXAM: CT HEAD WITHOUT CONTRAST HISTORY: Confusion COMPARISON: CT head from 09/21/2024 TECHNIQUE: Multi-slice transaxial images are acquired through the head with 2-D reconstructed images. All CT scans are performed using dose optimization techniques as appropriate to the performed exam and includes at least one of the following: Automated exposure control, adjustment of the mA and/or kV according to size, and the use of iterative reconstruction technique. FINDINGS: The midline structures are central. The ventricles and sulci are diffusely prominent. There is moderate low attenuation in the periventricular and subcortical white matter. There is a stable calcified extra-axial mass adjacent to the left frontal parietal lobe with mass effect measuring up to 3.1 x 2.7 cm. The brain attenuation has a normal christian-white matter interface. No acute intraparenchymal or extraaxial hemorrhage. The calvarium is intact. There are mucous retention cysts in the maxillary sinuses. There is mucosal thickening within the left maxillary sinus. 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 The other paranasal sinuses and mastoid air cells are clear. IMPRESSION: 1. No acute intracranial process. 2. 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 3. See stable probable calcified meningioma adjacent to the left frontal parietal lobe with mass effect measuring 3.[address] scans are performed using dose optimization techniques as appropriate to the performed exam and include at least one of the following: Automated exposure control, adjustment of the mA and/or kV according to size, and the use of iterative reconstruction technique. Dictated By: ALONZO OROSCO Signed By: ALONZO OROSCO Dictated Date/Time: 10/26/241952 Transcribed Date/Time: 10/26/241952 Signed Date/Time: 10/26/241958 Vital Signs: Temp Pulse Resp BP Pulse Ox O2 Flow Rate 10/26/24 20:34 96 22 H 85/47 L 96 2 10/26/24 19:49 96 25 H 77/36 L 97 2 10/26/24 19:30 2 10/26/24 18:20 101 F H 109 H 20 106/61 93 L 22:24 - Spoke with on-call hospitalist (JUAN DAVID Kerr) regarding patient status and current workup and management of urosepsis as well as COVID-19 pneumonia. After receiving antibiotics, patient's blood pressure started to decrease, but has been gradually increasing with 30 mL/kg fluids warranted per sepsis guidelines. Patient's blood pressure is currently 104/59 with a MAP of 77. Clarified goals of care with patient's son and patient who preferred DNR CODE STATUS. Hospitalist is agreeable to accepting patient for further workup and management. Discharge Plan Discharge Patient Disposition: ADMITTED INPATIENT Did you review [place] SECURITY INCIDENT RESPONSE SPECIALIST for ALL controlled substances?: Not Applicable ED Provider: YUMIKO JOHNSON Condition: Stable
[2024-10-26 18:46] LABS: BILIRUBIN,URINE Negative (NEGATIVE); CLARITY,URINE Cloudy (CLEAR); COLOR,URINE Yellow (YELLOW); GLUCOSE, URINE (UA) Negative (NEGATIVE); KETONES,URINE Trace (NEGATIVE); LEUKOCYTE ESTERASE ,URINE 2+ (NEGATIVE); NITRITE,URINE Negative (NEGATIVE); PH,URINE 7.5 (5-9); PROTEIN,URINE 1+ (NEGATIVE); URINE, BLOOD Negative (NEGATIVE)
[2024-10-26] MEDS: SODIUM CHLORIDE 1,000 ML IV STA ×2 (18:46→20:07)
[2024-10-26] MEDS: ACETAMINOPHEN 1,000 MG/100 ML BAG IV STA (18:46)
[2024-10-26 18:54] LABS: SARS COV-2 RNA RAPID NAAT POSITIVE (NEGATIVE); SQUAMOUS EPITHELIAL CELL,UR NOT PRESENT (0-5)
[2024-10-26 18:57] LABS: BACTERIA,URINE 2+ (NOT PRESENT); URINE RBC, MICROSCOPIC 0-2 (0-2); URINE WBC, MICROSCOPIC 30-50 (0-2)
[2024-10-26 18:58] LABS: BASOPHILS % (AUTO) 0.2 % (0.0-3.0); EOSINOPHILS # (AUTO) 0.1 K/ul (0.0-0.7); EOSINOPHILS % (AUTO) 0.7 % (0.0-7.0); HEMATOCRIT 33.1 % (42.0-52.0); HEMOGLOBIN 10.4 g/dl (14.0-18.0); IMMATURE GRANULOCYTE % (AUTO) 0.4 % (0.0-5.0); LYMPHOCYTES # (AUTO) 0.9 K/uL (0.60-3.4); LYMPHOCYTES % (AUTO) 11.3 (10.0-50.0); MEAN CORPUSCULAR HEMOGLOBIN 30.3 pg (27.0-31.0); MEAN CORPUSCULAR HGB CONC 31.4 (31.8-35.4); MEAN CORPUSCULAR VOLUME 96.5 fl (80.0-94.0); MONOCYTES # (AUTO) 0.7 K/uL (0.4-2.0); MONOCYTES % (AUTO) 8.9 (0-10); NEUTROPHILS # (AUTO) 6.4 K/ul (2.0-6.9); NEUTROPHILS % (AUTO) 78.5 % (42.2-75.2); PLATELET COUNT 203 10^3/uL (140-440); RDW COEFFICIENT OF VARIATION 14.6 % (11.6-14.8); RED BLOOD COUNT 3.43 10^6/ul (4.70-6.10); WHITE BLOOD COUNT 8.11 K/ul (4.2-10.2)
[2024-10-26 18:58] LABS: MOLECULAR FLU A NEGATIVE BY NAAT (NEGATIVE); MOLECULAR FLU B NEGATIVE BY NAAT (NEGATIVE)
[2024-10-26 19:09] LABS: PROTHROMBIN TIME 11.3 SEC (9.3-11.0)
[2024-10-26 19:10] LABS: ALANINE AMINOTRANSFERASE 57.5 U/L (0-50); ALBUMIN 3.72 g/dL (3.5-5.0); ALKALINE PHOSPHATASE 123.3 U/L (56-119); ASPARTATE AMINO TRANSFERASE 51.3 U/L (17-59); BILIRUBIN,TOTAL 0.45 mg/dL (0.2-1.3); BLOOD UREA NITROGEN 35.4 mg/dL (9-20); CALCIUM 8.21 mg/dL (8.4-10.2); CARBON DIOXIDE 21.7 mmol/L (22-30.0); CHLORIDE 106.2 mmol/L (98-107); CREATININE 0.99 mg/dL (0.60-1.10); GLUCOSE 127.7 mg/dL (74-106); MAGNESIUM 1.78 mg/dL (1.6-2.3); POTASSIUM 4.61 mmol/L (3.5-5.1); SODIUM 138.5 mmol/L (134.5-145); TOTAL PROTEIN 8.18 g/dL (6.3-8.2)
[2024-10-26 19:27] LABS: TROPONIN I < 0.012 ng/ml (0.0000-0.120)
[2024-10-26 19:58] LABS: ERYTHROCYTE SEDIMENTATION RATE 63 mm/hr (0-15)
--- NOTE | 2024-10-26 19:59 | CT ---
EXAM: CT HEAD WITHOUT CONTRAST HISTORY: Confusion COMPARISON: CT head from 09/21/2024 TECHNIQUE: Multi-slice transaxial images are acquired through the head with 2-D reconstructed images . All CT scans are performed using dose optimization techniques as appropriate to the performed exam and includes at least one of the following: Automated exposure control, adjustment of the mA and/or kV according to size, and the use of iterative reconstruction technique. FINDINGS: The midline structures are central. The ventricles and sulci are diffusely prominent. Th ere is moderate low attenuation in the periventricular and subcortical white matter. There is a stab le calcified extra-axial mass adjacent to the left frontal parietal lobe with mass effect measuring u p to 3.1 x 2.7 cm. The brain attenuation has a normal christian-white matter interface. No acute intrap arenchymal or extraaxial hemorrhage. The calvarium is intact. There are mucous retention cysts in the maxillary sinuses. There is mucosa l thickening within the left maxillary sinus. There is an osteoma within a right mid ethmoid air bennie l. The other paranasal sinuses and mastoid air cells are clear. IMPRESSION: 1. No acute intracranial process. 2. 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 3. See stable probable calcified meningioma adjacent to the left frontal parietal lobe with mass effe ct measuring 3.1 [address] scans are performed using dose optimization techniques as appropriate to the performed exam an d include at least one of the following: Automated exposure control, adjustment of the mA and/or kV according t o size, and the use of iterative reconstruction technique.
[2024-10-26] MEDS: MAXIPIME 2 GM/50 ML D5W 2 GM/50 ML BAG IV STA (20:00)
--- NOTE | 2024-10-26 20:20 | DI ---
EXAM: CHEST RADIOGRAPH TECHNIQUE: Single frontal chest radiograph. HISTORY: Diminished breath sounds. Positive COVID-19. COMPARISON: 09/21/2024. Correlation is also made with CT chest from 07/04/2024. FINDINGS: The lungs are hyperexpanded, as before. Bibasilar infiltrates, stable on the left and new on the right. No pleural effusion or pneumothorax is seen. Heart size is normal. No acute displaced rib fractures are identified. IMPRESSION: 1. Stable findings of emphysema. 2. Bibasilar pneumonia, stable on the left, and new on the right.
[2024-10-26] MEDS: SOLU-MEDROL 125 MG IVP STA (21:00)
[2024-10-27] MEDS ORDERED: ZOFRAN SDV IVP PRN (01:43)
[2024-10-27] MEDS: DUONEB NEB SCH ×2 (02:00→05:49)
[2024-10-27] MEDS: SODIUM CHLORIDE 1,000 ML IV SCH ×2 (02:00→09:33)
[2024-10-27 02:20] VITALS: BMI 19.0
[2024-10-27] MEDS: VANCOMYCIN 750 MG/150 ML BAG 750 MG/150 ML BAG IV SCH ×2 (02:39→09:33)
[2024-10-27] MEDS: VANCOMYCIN 1 GRAM/200 ML PREMIX 1 GM/200 ML BAG IV SCH (04:28)
[2024-10-27 05:26] LABS: BASOPHILS % (AUTO) 0.2 % (0.0-3.0); EOSINOPHILS # (AUTO) 0.1 K/ul (0.0-0.7); EOSINOPHILS % (AUTO) 2.2 % (0.0-7.0); HEMATOCRIT 32.6 % (42.0-52.0); HEMOGLOBIN 10.1 g/dl (14.0-18.0); IMMATURE GRANULOCYTE % (AUTO) 0.2 % (0.0-5.0); LYMPHOCYTES # (AUTO) 0.9 K/uL (0.60-3.4); LYMPHOCYTES % (AUTO) 23.1 (10.0-50.0); MEAN CORPUSCULAR HEMOGLOBIN 29.9 pg (27.0-31.0); MEAN CORPUSCULAR VOLUME 96.4 fl (80.0-94.0); MONOCYTES # (AUTO) 0.1 K/uL (0.4-2.0); MONOCYTES % (AUTO) 1.5 (0-10); NEUTROPHILS % (AUTO) 72.8 % (42.2-75.2); PLATELET COUNT 186 10^3/uL (140-440); RDW COEFFICIENT OF VARIATION 14.6 % (11.6-14.8); RED BLOOD COUNT 3.38 10^6/ul (4.70-6.10); WHITE BLOOD COUNT 4.07 K/ul (4.2-10.2)
[2024-10-27 05:38] LABS: ALANINE AMINOTRANSFERASE 45.7 U/L (0-50); ALBUMIN 3.27 g/dL (3.5-5.0); ALKALINE PHOSPHATASE 125.1 U/L (56-119); ASPARTATE AMINO TRANSFERASE 42.1 U/L (17-59); BILIRUBIN,TOTAL 0.28 mg/dL (0.2-1.3); BLOOD UREA NITROGEN 28.9 mg/dL (9-20); CALCIUM 7.98 mg/dL (8.4-10.2); CARBON DIOXIDE 20.5 mmol/L (22-30.0); CHLORIDE 109.1 mmol/L (98-107); CREATININE 0.84 mg/dL (0.60-1.10); GLUCOSE 165.9 mg/dL (74-106); POTASSIUM 4.68 mmol/L (3.5-5.1); SODIUM 140.5 mmol/L (134.5-145); TOTAL PROTEIN 7.51 g/dL (6.3-8.2)
[2024-10-27] MEDS: ROCEPHIN 1 GM/50 ML D5W 1 GM/50 ML BAG IV SCH (08:47)
[2024-10-27] MEDS ORDERED: NON-FORMULARY MEDICATION (Ferrous Sulfate 325 mg (65 mg iron) tablet) SCH (09:15)
[2024-10-27] MEDS: FERROUS SULFATE PO SCH (09:34)
[2024-10-27] MEDS: VEKLURY 200 MG in SODIUM CHLORIDE 250 ML IV ONE (13:32)
--- NOTE | 2024-10-27 14:33 | PCM ---
Date of Service Date Seen by Provider: 10/27/24 Time Seen by Provider: 09:20 Admit Day/Time Admission Date: 10/26/24 Admission Time: 22:15 Reason for Admission Chief Complaint: weakness Hospital Provider Hospital Provider: JUAN HARRIS PA-C, [facility] Primary Care Physician Primary Care Physician: FRIEDA SCHMITD MD History of Present Illness History of Present Illness: Patient is an 89 year old [facility] who presented to ER with worsening lethargy and fever. It had developed over the course of the day. Son noted him to be worsening. Upon arrival to the ER he was noted to be covid positive. CXR shows bibasilar pneumonia. UA showing UTI. He met sepsis criteria. His BP dropped and required fluids to improve. He was given cefepime and solumedrol as well. Patient was palced on 2L. He was admitted to [facility]. Today patient is feeling better. He has been on RA. His BP is improved but still on low end of normal. He denies complaints. Case Discussed With Case Discussed With: Patient's case was discussed with the ER Physicians, Dr. Newberry. [facility] Medical History Elevated PSA quit going to dr osborne R97.20 - Elevated prostate specific antigen [PSA] (ICD-10) Cholelithiases K80.20 - Calculus of gallbladder without cholecystitis without obstruction (ICD-10) AVM (arteriovenous malformation) cecal - x2 Shiben (does not recommend another colonoscopy) Q27.30 - Arteriovenous malformation, site unspecified (ICD-10) Surgical History History of fusion of cervical spine Z98.1 - Arthrodesis status (ICD-10) History of appendectomy Z90.49 - Acquired absence of other specified parts of digestive tract (ICD- 10) Previous back surgery x2 Z98.890 - Other specified postprocedural states (ICD-10) History of cholecystectomy Z90.49 - Acquired absence of other specified parts of digestive tract (ICD- 10) Social History Smoking and tobacco status: Never smoker Smokeless tobacco user: chewing tobacco Substance use type: does not use Special cristian needs: No Agree to transfusion: Yes Adopted: No Caregiver/support person: No Foster care: No Household members: spouse Housing: house Marital status: M Lives independently: Yes Number of children: 4 service: No residential: No Current occupational status: retired History of recent travel: No Current gender identity: male Seatbelt use: always Drives intoxicated or rides with intoxicated substitute bus driver: No Water heater temperature set < 120 degrees: Yes Working smoke detector in home: Yes Fire extinguisher in home: Yes Carbon monoxide detector in home: Yes Allergies Allergies Allergy/AdvReac Type Severity Reaction Status Date / Time quinine AdvReac Unconscious Verified 10/26/24 18:40 ness Current Medications Home Medications Albuterol/Ipratropium (Ipratropium/Albuterol Vial.Neb) 3 ml NEB RTQ4H [facility] Last Admin: 10/27/24 14:25 Dose: 3 ml Atorvastatin Calcium (Atorvastatin Calcium 20 Mg Tablet) 40 mg PO QPM [facility] Enoxaparin Sodium (Enoxaparin Sodium 40 Mg/0.4 Ml Syr) 40 mg SUBCUT DAILY [facility] Ferrous Sulfate (Ferrous Sulfate 324 Mg Tablet.Dr) 324 mg PO DAILY [facility] Last Admin: 10/27/24 09:34 Dose: 324 mg CEFTRIAXONE/D5W 1 GM PREMIX (Rocephin 1 Gm/50 Ml D5w) 1 gm in 50 mls @ 100 mls/hr IV DAILY [facility] Stop: 10/30/24 08:59 Last Admin: 10/27/24 08:47 Dose: 100 mls/hr VANCOMYCIN/WATER FOR INJ (PEG) (Vancomycin 750 Mg/150 Ml Bag) 750 mg in 150 mls @ 150 mls/hr IV Q12HR [facility] Stop: 10/30/24 02:29 Last Admin: 10/27/24 09:33 Dose: 150 mls/hr Sodium Chloride (Sodium Chloride) 1,000 mls @ 150 mls/hr IV .Q6H40M [facility] Last Admin: 10/27/24 11:43 Dose: 150 mls/hr Remdesivir 100 mg/ Sodium (Chloride) 100 mls @ 200 mls/hr IV DAILY [facility] Stop: 10/31/24 09:29 Mirtazapine (Mirtazapine 15 Mg Tablet) 15 mg PO BEDTIME ANUSHKA Ondansetron HCl (Ondansetron Hcl/Pf 4 Mg/2 Ml Sdv) 4 mg IVP Q6H PRN PRN Reason: Nausea / Vomiting Sodium Chloride (0.9% Sodium Chloride 10 Ml Disp.Syrin) 1 syr IVF PRN PRN PRN Reason: To flush IV Tamsulosin HCl (Tamsulosin Hcl 0.4 Mg Cap.Er.24h) 0.4 mg PO BEDTIME ANUSHKA tamsulosin 0.4 mg capsule (Flomax) 0.4 mg PO QHS 10/21/23 [History Confirmed 10/26/24] ferrous sulfate 325 mg (65 mg iron) tablet See Rx Instructions .Route .COMPLEX #90 tabs 01/21/24 [Rx Confirmed 10/26/24] atorvastatin 40 mg tablet (Lipitor) 40 mg PO QPM 04/15/24 [History Confirmed 10/26/24] acetaminophen 325 mg tablet 650 mg PO Q4H PRN pain/FEVER 09/21/24 [History Confirmed 10/26/24] methocarbamol 500 mg tablet 750 mg PO Q8H 09/21/24 [History Confirmed 10/26/24] mirtazapine 15 mg tablet 15 mg PO BEDTIME 09/21/24 [History Confirmed 10/26/24] multivitamin,ye-aozv-Sm-FA-min 1 tab PO DAILY 09/21/24 [History Confirmed 10/26/24] Opioid Naive vs. Tolerant Does Patient Take Opioids?: No Is Patient Opioid Naive?: Yes What is Opioid Naive?: *Opioid Naive implies the patient is not already taking opioids or not chronically receiving opioids on a daily basis. *PRN dosing is not "usually" associated with tolerance. *Patients are at higher risk of over-sedation and aspiration. Is Patient Opioid Tolerant?: No What is Opioid Tolerant?: *Opioid Tolerance implies less than the expected response to an opioid. *Acquired tolerance is defined by the patient taking 60mg of oral morphine daily (or equianalgesic dose of another opioid) for 1 week or more. *Often associated with chronic pain. *May take more than usual dose to achieve desired pain control. Review of Systems Constitutional: Reports Fever, Fatigue and Weakness Head: Reports Normocephalic and Atraumatic Cardiovascular: Denies Chest pain, Chest Pressure or Edema Respiratory: Reports Cough and Shortness of air Gastrointestinal: Denies Nausea, Vomiting, Diarrhea, Abdominal pain or Melena Genitourinary: Denies Dysuria or Hematuria Neurological: Denies Syncope Physical examination Most Recent Vital Signs: Most Recent Vital Signs Temperature 97.9 F 10/27/24 14:00 Temperature Source Oral 10/27/24 14:00 Temperature Source Infrared 10/26/24 18:20 Pulse Rate 69 10/27/24 14:00 Respiratory Rate 17 10/27/24 14:00 Blood Pressure 99/65 10/27/24 14:00 Blood Pressure Mean 76 10/27/24 14:00 Blood Pressure Right Arm 110/66 10/27/24 01:42 Blood Pressure Location Left Arm 10/27/24 14:00 Blood Pressure Position Sitting 10/27/24 14:00 O2 Sat by Pulse Oximetry 91 L 10/27/24 14:00 Oxygen Delivery Method Room Air 10/27/24 14:00 Oxygen Flow Rate 2 10/27/24 08:00 Height 6 ft 1 in 10/27/24 10:12 Weight 65.3 kg 10/27/24 10:12 Telemetry Type Bedside Monitor 10/27/24 13:00 Telemetry Monitoring Continues 10/27/24 13:00 Telemetry Heart Rate 72 10/27/24 13:00 Telemetry SPO2 90 L 10/27/24 13:00 EKG SD Interval 0.20 10/27/24 13:00 EKG QRS Interval 0.06 10/27/24 13:00 Telemetry Strip Reading NSR 10/27/24 13:00 Appearance: Positive No Apparent Distress and Alert and Oriented x3 Skin: Positive [place], Warm, Good Turgor and Good Color; Negative Rashes HEENT: Positive Normocephalic and Atraumatic Neck: Positive Supple and Midline Trachea Chest/Lungs: Positive Clear to Auscultation Bilaterally; Negative Rales, Rhonci or Wheezes Heart: Positive RRR GI/: Positive Soft, Nontender, Bowel Sounds Normal and No Distention Neurological: Positive Cranial Nerves Intact, Alert, Oriented and Other (+generalized weakness ) Psychiatric: Positive Oriented x4, Appropriate Mood and Appropriate Affect Labs This Visit Labs This Visit: Labs This Visit 10/26/24 10/26/24 10/26/24 18:32 18:45 18:49 WBC 8.11 RBC 3.43 L Hgb 10.4 L Hct 33.1 L MCV 96.5 H MCH 30.3 MCHC 31.4 L RDW Coeff of Carlos 14.6 Plt Count 203 Immature Gran % (Auto) 0.4 Neut % (Auto) 78.5 H Lymph % (Auto) 11.3 [place] % (Auto) 8.9 Eos % (Auto) 0.7 Baso % (Auto) 0.2 Neut # (Auto) 6.4 Lymph # (Auto) 0.9 [place] # (Auto) 0.7 Eos # (Auto) 0.1 Baso # (Auto) 0.0 Immature Gran # (Auto) 0.0 ESR 63 H PT 11.3 H INR 1.10 Sodium 138.5 Potassium 4.61 Chloride 106.2 Carbon Dioxide 21.7 L Anion Gap 15.21 BUN 35.4 H Creatinine 0.99 Estimated GFR (MDRD) 72.00 BUN/Creatinine Ratio 35.75 Glucose 127.7 H Lactic Acid 1.68 Calcium 8.21 L Magnesium 1.78 Total Bilirubin 0.45 AST 51.3 ALT 57.5 H Alkaline Phosphatase 123.3 H Troponin I < 0.012 Total Protein 8.18 Albumin 3.72 Globulin 4.46 Albumin/Globulin Ratio 0.83 Procalcitonin 0.09 H Urine Color Yellow Urine Clarity Cloudy Urine pH 7.5 Ur Specific [place] 1.020 Urine Protein 1+ H Urine Glucose (UA) Negative Urine Ketones Trace H Urine Blood Negative Urine Nitrite Negative Urine Bilirubin Negative Urine Urobilinogen 1.0 H Ur Leukocyte Esterase 2+ H Urine Microscopic RBC 0-2 Urine Microscopic WBC 30-50 Ur Squamous Epith Cells Not present Urine Bacteria 2+ Influ A Molecular Assay Negative by naat Influ B Molecular Assay Negative by naat SARS CoV-2 RNA Rapid POONAM Positive H 10/27/24 05:14 WBC 4.07 L RBC 3.38 L Hgb 10.1 L Hct 32.6 L MCV 96.4 H MCH 29.9 MCHC 31.0 L RDW Coeff of Carlos 14.6 Plt Count 186 Immature Gran % (Auto) 0.2 Neut % (Auto) 72.8 Lymph % (Auto) 23.1 [place] % (Auto) 1.5 Eos % (Auto) 2.2 Baso % (Auto) 0.2 Neut # (Auto) 3.0 Lymph # (Auto) 0.9 [place] # (Auto) 0.1 L Eos # (Auto) 0.1 Baso # (Auto) 0.0 Immature Gran # (Auto) 0.0 ESR PT INR Sodium 140.5 Potassium 4.68 Chloride 109.1 H Carbon Dioxide 20.5 L Anion Gap 15.58 BUN 28.9 H Creatinine 0.84 Estimated GFR (MDRD) 86.00 BUN/Creatinine Ratio 34.40 Glucose 165.9 H Lactic Acid Calcium 7.98 L Magnesium Total Bilirubin 0.28 AST 42.1 ALT 45.7 Alkaline Phosphatase 125.1 H Troponin I Total Protein 7.51 Albumin 3.27 L Globulin 4.24 Albumin/Globulin Ratio 0.77 Procalcitonin Urine Color Urine Clarity Urine pH Ur Specific [place] Urine Protein Urine Glucose (UA) Urine Ketones Urine Blood Urine Nitrite Urine Bilirubin Urine Urobilinogen Ur Leukocyte Esterase Urine Microscopic RBC Urine Microscopic WBC Ur Squamous Epith Cells Urine Bacteria Influ A Molecular Assay Influ B Molecular Assay SARS CoV-2 RNA Rapid POONAM Microbiology This Visit 10/26/24 18:54 Urine,Random Urine Culture - Preliminary Imaging Imaging: EXAM: CHEST RADIOGRAPH TECHNIQUE: Single frontal chest radiograph. HISTORY: Diminished breath sounds. Positive COVID-19. COMPARISON: 09/21/2024. Correlation is also made with CT chest from 07/04/2024. FINDINGS: The lungs are hyperexpanded, as before. Bibasilar infiltrates, stable on the left and new on the right. No pleural effusion or pneumothorax is seen. Heart size is normal. No acute displaced rib fractures are identified. IMPRESSION: 1. Stable findings of emphysema. 2. Bibasilar pneumonia, stable on the left, and new on the right. EXAM: CT HEAD WITHOUT CONTRAST HISTORY: Confusion COMPARISON: CT head from 09/21/2024 TECHNIQUE: Multi-slice transaxial images are acquired through the head with 2-D reconstructed images. All CT scans are performed using dose optimization techniques as appropriate to the performed exam and includes at least one of the following: Automated exposure control, adjustment of the mA and/or kV according to size, and the use of iterative reconstruction technique. FINDINGS: The midline structures are central. The ventricles and sulci are diffusely prominent. There is moderate low attenuation in the periventricular and subcortical white matter. There is a stable calcified extra-axial mass adjacent to the left frontal parietal lobe with mass effect measuring up to 3.1 x 2.7 cm. The brain attenuation has a normal christian-white matter interface. No acute intraparenchymal or extraaxial hemorrhage. The calvarium is intact. There are mucous retention cysts in the maxillary sinuses. There is mucosal thickening within the left maxillary sinus. 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 The other paranasal sinuses and mastoid air cells are clear. IMPRESSION: 1. No acute intracranial process. 2. 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 3. See stable probable calcified meningioma adjacent to the left frontal pa rietal lobe with mass effect measuring 3.1 51 7 cm. Review Statement Review Statement: I have independently reviewed and interpreted the labs/EKGs/imaging that were ordered by the ER provider. I have reviewed all outside records that are available currently in our EMR including imaging/notes/labs from previous visits. Plan Plan: 1. Sepsis in setting of UTI - BP improved. Lactic normal. Cont abx. BC pending. 2. UTI - UC pending. Cont rocephin. 3. Covid 19 - Remdesivir ordered. Will add decadron if hypoxic, currently on RA. Isolation precautions. 4. Bibasilar pneumonia, onesimo - Could be viral related but will cover with abx due to sepsis. Vanc and rocephin ordered. Can likely dc vanc tomorrow. MRSA ordered. 5. Hypotension in setting of sepsis - Did respond to fluids, continue to monitor. 6. BPH - Cont home meds 7. Hyperlipidemia - cont home meds DVT Prophylaxis: Lovenox Time Spent: Greater than 80 minutes spent with patient, 50% of the time spent with this patient was devoted to counseling and coordination of care. [facility] minutes spent discussing advance care planning. Admit to: Inpatient Discussed Plan of Care with Dr. Bennie Schmidt. Medications Medication Orders: Medications Ordered Category Date Time Status 0.9 % Sodium Chloride [Saline Flush] Meds 10/26/24 18:24 Active 1 syr IVF PRN PRN Atorvastatin Calcium [Lipitor] Meds 10/27/24 17:00 Active 40 mg PO QPM Ceftriaxone/D5w 1 gm Premix [Rocephin 1 gm/50 ml D5w] Meds 10/27/24 09:00 Active 1 gm in 50 ml IV DAILY Ferrous Sulfate Meds 10/27/24 09:30 Active 324 mg PO DAILY Ipratropium/Albuterol Neb [Duoneb] Meds 10/27/24 06:00 Active 3 ml NEB RTQ4H Mirtazapine [Remeron] Meds 10/27/24 21:00 Active 15 mg PO BEDTIME Ondansetron HCl/Pf [Zofran Sdv] Meds 10/27/24 01:43 Active 4 mg IVP Q6H PRN Remdesivir [Veklury] 100 mg Meds 10/28/24 09:00 Active 0.9 % Sodium Chloride [Sodium Chloride 100Ml] 100 ml IV DAILY Sodium Chloride 0.9% [Sodium Chloride] 1,000 ml Meds 10/27/24 09:31 Active IV 150 mls/hr Tamsulosin HCl [Flomax] Meds 10/27/24 21:00 Active 0.4 mg PO BEDTIME Vancomycin/Water For Inj (Peg) [Vancomycin 750 mg/150 Meds 10/27/24 09:00 Active ml Bag] 750 mg in 150 ml IV Q12HR
[2024-10-27] MEDS: LOVENOX SUBCUT SCH (15:31)
[2024-10-27] MEDS: LIPITOR PO SCH (16:27)
[2024-10-27] MEDS: FLOMAX PO SCH (20:11)
[2024-10-27] MEDS: REMERON PO SCH (20:11)
[2024-10-28 06:10] LABS: BASOPHILS % (AUTO) 0.2 % (0.0-3.0); EOSINOPHILS # (AUTO) 0.1 K/ul (0.0-0.7); EOSINOPHILS % (AUTO) 0.9 % (0.0-7.0); HEMATOCRIT 27.6 % (42.0-52.0); HEMOGLOBIN 8.7 g/dl (14.0-18.0); IMMATURE GRANULOCYTE % (AUTO) 0.4 % (0.0-5.0); LYMPHOCYTES # (AUTO) 1.7 K/uL (0.60-3.4); LYMPHOCYTES % (AUTO) 31.6 (10.0-50.0); MEAN CORPUSCULAR HEMOGLOBIN 30.5 pg (27.0-31.0); MEAN CORPUSCULAR HGB CONC 31.5 (31.8-35.4); MEAN CORPUSCULAR VOLUME 96.8 fl (80.0-94.0); MONOCYTES # (AUTO) 0.4 K/uL (0.4-2.0); MONOCYTES % (AUTO) 8.2 (0-10); NEUTROPHILS # (AUTO) 3.2 K/ul (2.0-6.9); NEUTROPHILS % (AUTO) 58.7 % (42.2-75.2); PLATELET COUNT 151 10^3/uL (140-440); RDW COEFFICIENT OF VARIATION 14.6 % (11.6-14.8); RED BLOOD COUNT 2.85 10^6/ul (4.70-6.10); WHITE BLOOD COUNT 5.38 K/ul (4.2-10.2)
[2024-10-28 06:31] LABS: ALANINE AMINOTRANSFERASE 38.5 U/L (0-50); ALBUMIN 2.86 g/dL (3.5-5.0); ALKALINE PHOSPHATASE 102.4 U/L (56-119); ASPARTATE AMINO TRANSFERASE 37.1 U/L (17-59); BILIRUBIN,TOTAL 0.11 mg/dL (0.2-1.3); BLOOD UREA NITROGEN 22.5 mg/dL (9-20); CALCIUM 7.95 mg/dL (8.4-10.2); CARBON DIOXIDE 18.3 mmol/L (22-30.0); CHLORIDE 113.2 mmol/L (98-107); CREATININE 0.79 mg/dL (0.60-1.10); GLUCOSE 89.2 mg/dL (74-106); POTASSIUM 3.36 mmol/L (3.5-5.1); SODIUM 140.5 mmol/L (134.5-145); TOTAL PROTEIN 6.6 g/dL (6.3-8.2)
[2024-10-28] MEDS ORDERED: LOPRESSOR PO SCH (09:00)
[2024-10-28] MEDS: LOPRESSOR PO SCH (09:09)
[2024-10-28] MEDS: K-DUR PO ONE (09:09)
[2024-10-28] MEDS: VEKLURY 100 MG in SODIUM CHLORIDE 100ML 100 ML IV SCH (09:10)
--- NOTE | 2024-10-28 11:11 | PCM.PROG ---
Date/Time Seen Date Seen by Provider: 10/28/24 Time Seen by Provider: 09:00 Provider Provider[facility] Chief Complaint Chief Complaint: weakness Subjective Subjective: Alert and talkative this am. Found to be in afib this AM with heart rate in 100s. No previous history noted. BP trending on lower end overnight, fluids increased but appears to be 90s/60s at baseline. Objective Appearance: Positive No Apparent Distress Chest/Lungs: Positive Symmetrical With Equal Breath Sounds, Clear to Auscultation Bilaterally and Good Air Movement all 4 Lung [place] Heart: Positive RRR and Pulses Normal GI/: Positive Soft, Nontender, Bowel Sounds Normal and No Distention Musculoskeletal: Positive Not Examined Neurological: Positive Sensation Intact, Motor intact, Alert and Disorinted Vital Signs Vital Signs: Vital Signs: Last 24 Hours 10/27/24 12:00 10/27/24 13:00 10/27/24 13:35 Temperature 97.8 F Temperature Source Oral Pulse Rate 69 69 Respiratory Rate 16 16 Blood Pressure 100/56 L 101/59 L Blood Pressure Mean 70 73 Blood Pressure Location Left Arm Left Arm Blood Pressure Position Sitting Sitting O2 Sat by Pulse Oximetry 92 L 92 L Oxygen Delivery Method Room Air Room Air Oxygen Flow Rate Telemetry Type Bedside Monitor Telemetry Monitoring Continues Telemetry Heart Rate 72 Telemetry SPO2 90 L EKG MN Interval 0.20 EKG QRS Interval 0.06 EKG QT Interval Telemetry Strip Reading NSR 10/27/24 14:00 10/27/24 14:00 10/27/24 16:00 Temperature 97.9 F 97.6 F Temperature Source Oral Oral Pulse Rate 69 89 Respiratory Rate 17 20 Blood Pressure 99/65 111/59 L Blood Pressure Mean 76 76 Blood Pressure Location Left Arm Left Arm Blood Pressure Position Sitting Sitting O2 Sat by Pulse Oximetry 93 L 91 L 91 L Oxygen Delivery Method Room Air Room Air Room Air Oxygen Flow Rate Telemetry Type Telemetry Monitoring Telemetry Heart Rate Telemetry SPO2 EKG MN Interval EKG QRS Interval EKG QT Interval Telemetry Strip Reading 10/27/24 17:28 10/27/24 19:00 10/27/24 20:00 Temperature 97.6 F Temperature Source Oral Pulse Rate 90 Respiratory Rate 21 H Blood Pressure 108/66 Blood Pressure Mean 80 Blood Pressure Location Left Arm Blood Pressure Position Sitting O2 Sat by Pulse Oximetry 94 L 92 L Oxygen Delivery Method Room Air Nasal Cannula Oxygen Flow Rate 1 Telemetry Type Bedside Monitor Telemetry Monitoring Continues Telemetry Heart Rate 85 Telemetry SPO2 90 L EKG MN Interval 0.13 EKG QRS Interval 0.08 EKG QT Interval Telemetry Strip Reading sinus rhythm 10/27/24 20:00 10/27/24 20:00 10/27/24 21:02 Temperature 98.2 F Temperature Source Pulse Rate 85 85 Respiratory Rate 19 20 19 Blood Pressure 102/60 102/60 Blood Pressure Mean 74 74 Blood Pressure Location Left Arm Left Arm Blood Pressure Position Supine Supine O2 Sat by Pulse Oximetry 91 L 91 L Oxygen Delivery Method Room Air Nasal Cannula Room Air Oxygen Flow Rate 2 Telemetry Type Telemetry Monitoring Telemetry Heart Rate Telemetry SPO2 EKG MN Interval EKG QRS Interval EKG QT Interval Telemetry Strip Reading 10/27/24 21:41 10/27/24 22:37 10/27/24 23:58 Temperature Temperature Source Pulse Rate 77 Respiratory Rate 20 Blood Pressure 86/48 L 88/49 L 102/55 L Blood Pressure Mean 60 62 70 Blood Pressure Location Left Arm Left Arm Left Arm Blood Pressure Position Supine Supine Supine O2 Sat by Pulse Oximetry 93 L Oxygen Delivery Method Room Air Nasal Cannula Room Air Oxygen Flow Rate Telemetry Type Telemetry Monitoring Telemetry Heart Rate Telemetry SPO2 EKG MN Interval EKG QRS Interval EKG QT Interval Telemetry Strip Reading 10/28/24 00:24 10/28/24 02:00 10/28/24 04:00 Temperature Temperature Source Pulse Rate 71 85 Respiratory Rate 21 H 19 Blood Pressure 103/62 93/56 L Blood Pressure Mean 75 68 Blood Pressure Location Left Arm Left Arm Blood Pressure Position Supine Supine O2 Sat by Pulse Oximetry 92 L 94 L Oxygen Delivery Method Nasal Cannula Nasal Cannula Oxygen Flow Rate 2 2 Telemetry Type Bedside Monitor Telemetry Monitoring Continues Telemetry Heart Rate 82 Telemetry SPO2 96 EKG MN Interval EKG QRS Interval 0.20 H EKG QT Interval 0.09 L Telemetry Strip Reading sinus rhythm 10/28/24 05:13 10/28/24 05:18 10/28/24 07:00 Temperature 97.6 F Temperature Source Temporal Artery Scan Pulse Rate 82 Respiratory Rate 19 Blood Pressure 90/54 L Blood Pressure Mean 66 Blood Pressure Location Right Arm Blood Pressure Position Supine O2 Sat by Pulse Oximetry 94 L 91 L Oxygen Delivery Method Nasal Cannula Nasal Cannula Oxygen Flow Rate 2 1 Telemetry Type Remote Telemetry Telemetry Monitoring Continues Telemetry Heart Rate 102 H Telemetry SPO2 93 EKG MN Interval EKG QRS Interval 0.09 EKG QT Interval Telemetry Strip Reading afib 10/28/24 08:00 10/28/24 08:00 10/28/24 10:00 Temperature 98.0 F 97.8 F Temperature Source Temporal Artery Scan Temporal Artery Scan Pulse Rate 95 102 H Respiratory Rate 18 21 H Blood Pressure 78/55 L 95/59 L Blood Pressure Mean 62 71 Blood Pressure Location Right Arm Right Arm Blood Pressure Position Supine Supine O2 Sat by Pulse Oximetry 90 L 94 L Oxygen Delivery Method Nasal Cannula Nasal Cannula Nasal Cannula Oxygen Flow Rate 1 2 1 Telemetry Type Telemetry Monitoring Telemetry Heart Rate Telemetry SPO2 EKG MN Interval EKG QRS Interval EKG QT Interval Telemetry Strip Reading 10/28/24 10:00 10/28/24 10:56 Temperature Temperature Source Pulse Rate Respiratory Rate Blood Pressure Blood Pressure Mean Blood Pressure Location Blood Pressure Position O2 Sat by Pulse Oximetry 95 Oxygen Delivery Method Nasal Cannula Room Air Oxygen Flow Rate 1 Telemetry Type Telemetry Monitoring Telemetry Heart Rate Telemetry SPO2 EKG MN Interval EKG QRS Interval EKG QT Interval Telemetry Strip Reading Lab Results Lab Results: Lab Results: Last 24 Hours 10/28/24 06:05 WBC 5.38 RBC 2.85 L Hgb 8.7 L Hct 27.6 L MCV 96.8 H MCH 30.5 MCHC 31.5 L RDW Coeff of Carlos 14.6 Plt Count 151 Immature Gran % (Auto) 0.4 Neut % (Auto) 58.7 Lymph % (Auto) 31.6 [place] % (Auto) 8.2 Eos % (Auto) 0.9 Baso % (Auto) 0.2 Neut # (Auto) 3.2 Lymph # (Auto) 1.7 [place] # (Auto) 0.4 Eos # (Auto) 0.1 Baso # (Auto) 0.0 Immature Gran # (Auto) 0.0 Sodium 140.5 Potassium 3.36 L Chloride 113.2 H Carbon Dioxide 18.3 L Anion Gap 12.36 BUN 22.5 H Creatinine 0.79 Estimated GFR (MDRD) 93.00 BUN/Creatinine Ratio 28.48 Glucose 89.2 Calcium 7.95 L Total Bilirubin 0.11 L AST 37.1 ALT 38.5 Alkaline Phosphatase 102.4 Total Protein 6.60 Albumin 2.86 L Globulin 3.74 Albumin/Globulin Ratio 0.76 Additional Comments Additional Comments: I have independently reviewed and interpreted the labs/EKGs/imaging ordered during this hospital stay. I have reviewed outside records that are available in our EMR that pertain to medical stay including imaging/notes/labs from previous visits. Active Medications Active Medications: Medications Generic Name Dose Route Start Last Admin Trade Name Freq PRN Reason Stop Dose Admin Albuterol/Ipratropium 3 ml 10/27/24 06:00 10/28/24 10:02 Ipratropium/Albuterol Vial.Neb NEB 3 ml RTQ4H ANUSHKA Administration Atorvastatin Calcium 40 mg 10/27/24 17:00 10/27/24 16:27 Atorvastatin Calcium 20 Mg Tablet PO 40 mg QPM ANUSHKA Administration Enoxaparin Sodium 40 mg 10/27/24 14:45 10/28/24 09:09 Enoxaparin Sodium 40 Mg/0.4 Ml Syr SUBCUT 40 mg DAILY ANUSHKA Administration Ferrous Sulfate 324 mg 10/27/24 09:30 10/28/24 09:09 Ferrous Sulfate 324 Mg Tablet. PO 324 mg DAILY ANUSHKA Administration CEFTRIAXONE/D5W 1 GM PREMIX 1 gm in 50 mls @ 100 mls/hr 10/27/24 09:00 10/28/24 10:51 Rocephin 1 Gm/50 Ml D5w IV 10/30/24 08:59 100 mls/hr DAILY ANUSHKA Administration Remdesivir 100 mg/ Sodium 100 mls @ 200 mls/hr 10/28/24 09:00 10/28/24 09:10 Chloride IV 10/31/24 09:29 200 mls/hr DAILY ANUSHKA Administration Metoprolol Tartrate 12.5 mg 10/28/24 09:00 10/28/24 09:09 Metoprolol Tartrate 25 Mg Tablet PO 12.5 mg DAILY ANUSHKA Administration Mirtazapine 15 mg 10/27/24 21:00 10/27/24 20:11 Mirtazapine 15 Mg Tablet PO 15 mg BEDTIME ANUSHKA Administration Ondansetron HCl 4 mg 10/27/24 01:43 Ondansetron Hcl/Pf 4 Mg/2 Ml Sdv IVP Q6H PRN Nausea / Vomiting Sodium Chloride 1 syr 10/26/24 18:24 0.9% Sodium Chloride 10 Ml Disp.Syrin IVF PRN PRN To flush IV Tamsulosin HCl 0.4 mg 10/27/24 21:00 10/27/24 20:11 Tamsulosin Hcl 0.4 Mg Cap.Er.24h PO 0.4 mg BEDTIME ANUSHKA Administration Plan Plan: 1. Sepsis in setting of UTI - BP unchanged, Lactic normal. Cont abx. BC prelim negative x 24 hours, stopping vancomycin. 2. UTI - UC growth of proteus. Cont rocephin. 3. Acute Hypoxic Respiratory Failure in setting of Covid 19 - Remdesivir ordered. decadron 6 mg IV daily, nebs Isolation precautions. 4. Bibasilar pneumonia, onesimo - Could be viral related but will cover with abx due to sepsis. Rocephin ordered. DC vanc today. 5. Hypotension in setting of sepsis - Improved but responsive to fluids, continue fluids, continue to monitor. 6. BPH - Cont home meds 7. Hyperlipidemia - cont home meds 8. New Onset Afib - continue lovenox - will discuss anticoag risk vs benefit wit h family, unable to start beta ever currently due to hypotension DVT Prophylaxis: Lovenox Review Statement Review Statement: I have personally discussed and reviewed the patient's visit/currently labs/imaging/decision making with Dr. Schmidt, my supervising attending. Greater that 50 minutes spent with patient, 50% of the time spent with this patient was devoted to counseling and coordination of care.
[2024-10-28] MEDS: DECADRON IVP SCH (12:54)
[2024-10-28] MEDS: SODIUM CHLORIDE 1,000 ML IV SCH (12:55)
[2024-10-29 08:33] LABS: BASOPHILS % (AUTO) 0.2 % (0.0-3.0); EOSINOPHILS # (AUTO) 0.1 K/ul (0.0-0.7); EOSINOPHILS % (AUTO) 1.1 % (0.0-7.0); HEMATOCRIT 29.1 % (42.0-52.0); HEMOGLOBIN 9.2 g/dl (14.0-18.0); IMMATURE GRANULOCYTE % (AUTO) 0.4 % (0.0-5.0); LYMPHOCYTES # (AUTO) 1.1 K/uL (0.60-3.4); LYMPHOCYTES % (AUTO) 20.7 (10.0-50.0); MEAN CORPUSCULAR HEMOGLOBIN 30.3 pg (27.0-31.0); MEAN CORPUSCULAR HGB CONC 31.6 (31.8-35.4); MEAN CORPUSCULAR VOLUME 95.7 fl (80.0-94.0); MONOCYTES # (AUTO) 0.5 K/uL (0.4-2.0); MONOCYTES % (AUTO) 8.8 (0-10); NEUTROPHILS # (AUTO) 3.6 K/ul (2.0-6.9); NEUTROPHILS % (AUTO) 68.8 % (42.2-75.2); PLATELET COUNT 176 10^3/uL (140-440); RDW COEFFICIENT OF VARIATION 14.9 % (11.6-14.8); RED BLOOD COUNT 3.04 10^6/ul (4.70-6.10); WHITE BLOOD COUNT 5.22 K/ul (4.2-10.2)
[2024-10-29 08:45] LABS: ALANINE AMINOTRANSFERASE 37.7 U/L (0-50); ALBUMIN 3.14 g/dL (3.5-5.0); ALKALINE PHOSPHATASE 96.1 U/L (56-119); ASPARTATE AMINO TRANSFERASE 45.8 U/L (17-59); BILIRUBIN,TOTAL 0.26 mg/dL (0.2-1.3); BLOOD UREA NITROGEN 15.7 mg/dL (9-20); CALCIUM 8.26 mg/dL (8.4-10.2); CHLORIDE 111.7 mmol/L (98-107); CREATININE 0.81 mg/dL (0.60-1.10); GLUCOSE 76.7 mg/dL (74-106); POTASSIUM 3.21 mmol/L (3.5-5.1); PROTHROMBIN TIME 11.4 SEC (9.3-11.0); SODIUM 139.8 mmol/L (134.5-145); TOTAL PROTEIN 7.1 g/dL (6.3-8.2)
[2024-10-29] MEDS ORDERED: IMODIUM PO PRN (09:57)
--- NOTE | 2024-10-29 10:00 | PCM.PROG ---
Date/Time Seen Date Seen by Provider: 10/29/24 Time Seen by Provider: 09:00 Provider [facility] Chief Complaint Chief Complaint: weakness Subjective Subjective: No complaints at this time. Pleasantly confused. 4 loose stools this am. Patient has had this diarrhea during previous admissions. Suspect chronic diarrhea. Objective Appearance: Positive No Apparent Distress Chest/Lungs: Positive Symmetrical With Equal Breath Sounds, Clear to Auscultation Bilaterally and Good Air Movement all 4 Lung [place] Heart: Positive RRR and Pulses Normal GI/: Positive Soft, Nontender, Bowel Sounds Normal and No Distention Musculoskeletal: Positive Not Examined Neurological: Positive Sensation Intact, Motor intact, Alert and Disorinted Vital Signs Vital Signs: Vital Signs: Last 24 Hours 10/28/24 10:00 10/28/24 10:00 10/28/24 10:56 Temperature 97.8 F Temperature Source Temporal Artery Scan Pulse Rate 102 H Respiratory Rate 21 H Blood Pressure 95/59 L Blood Pressure Mean 71 Blood Pressure Location Right Arm Blood Pressure Position Supine O2 Sat by Pulse Oximetry 94 L 95 Oxygen Delivery Method Nasal Cannula Nasal Cannula Room Air Oxygen Flow Rate 1 1 Weight Telemetry Type Telemetry Monitoring Telemetry Heart Rate Telemetry SPO2 EKG WI Interval EKG QRS Interval Telemetry Strip Reading 10/28/24 12:00 10/28/24 13:00 10/28/24 13:52 Temperature 97.8 F 97.6 F Temperature Source Temporal Artery Scan Temporal Artery Scan Pulse Rate 113 H 72 Respiratory Rate 24 H 20 Blood Pressure 111/79 83/52 L Blood Pressure Mean 89 62 Blood Pressure Location Left Arm Left Arm Blood Pressure Position Supine Supine O2 Sat by Pulse Oximetry 97 100 Oxygen Delivery Method Room Air Room Air Oxygen Flow Rate Weight Telemetry Type Bedside Monitor Telemetry Monitoring Continues Telemetry Heart Rate 98 Telemetry SPO2 95 EKG WI Interval EKG QRS Interval 0.08 Telemetry Strip Reading afib w/ pvcs 10/28/24 14:00 10/28/24 16:00 10/28/24 17:52 Temperature 97.5 F L Temperature Source Oral Pulse Rate 96 Respiratory Rate Blood Pressure 109/58 L Blood Pressure Mean 75 Blood Pressure Location Left Arm Blood Pressure Position Supine O2 Sat by Pulse Oximetry 94 L Oxygen Delivery Method Room Air Room Air Room Air Oxygen Flow Rate Weight Telemetry Type Telemetry Monitoring Telemetry Heart Rate Telemetry SPO2 EKG WI Interval EKG QRS Interval Telemetry Strip Reading 10/28/24 19:00 10/28/24 19:27 10/28/24 20:00 Temperature Temperature Source Pulse Rate Respiratory Rate Blood Pressure Blood Pressure Mean Blood Pressure Location Blood Pressure Position O2 Sat by Pulse Oximetry Oxygen Delivery Method Room Air Nasal Cannula Oxygen Flow Rate 2 Weight Telemetry Type Telemetry Monitoring Telemetry Heart Rate Telemetry SPO2 EKG WI Interval EKG QRS Interval Telemetry Strip Reading REFUSED 10/28/24 21:22 10/29/24 01:00 10/29/24 01:33 Temperature Temperature Source Pulse Rate 84 Respiratory Rate 18 Blood Pressure 101/57 L Blood Pressure Mean 71 Blood Pressure Location Left Arm Blood Pressure Position Supine O2 Sat by Pulse Oximetry 94 L Oxygen Delivery Method Room Air Oxygen Flow Rate Weight 65.3 kg Telemetry Type Bedside Monitor Telemetry Monitoring Continues Telemetry Heart Rate 89 Telemetry SPO2 89 L EKG WI Interval 0.14 EKG QRS Interval 0.07 Telemetry Strip Reading SR 10/29/24 05:22 10/29/24 05:52 10/29/24 08:00 Temperature 98.3 F Temperature Source Temporal Artery Scan Pulse Rate 94 Respiratory Rate 20 Blood Pressure 110/62 Blood Pressure Mean 78 Blood Pressure Location Right Arm Blood Pressure Position Supine O2 Sat by Pulse Oximetry 93 L Oxygen Delivery Method Room Air Room Air Room Air Oxygen Flow Rate Weight Telemetry Type Telemetry Monitoring Telemetry Heart Rate Telemetry SPO2 EKG WI Interval EKG QRS Interval Telemetry Strip Reading Lab Results Lab Results: Lab Results: Last 24 Hours 10/29/24 08:29 WBC 5.22 RBC 3.04 L Hgb 9.2 L Hct 29.1 L MCV 95.7 H MCH 30.3 MCHC 31.6 L RDW Coeff of Carlos 14.9 H Plt Count 176 Immature Gran % (Auto) 0.4 Neut % (Auto) 68.8 Lymph % (Auto) 20.7 Barber % (Auto) 8.8 Eos % (Auto) 1.1 Baso % (Auto) 0.2 Neut # (Auto) 3.6 Lymph # (Auto) 1.1 Barber # (Auto) 0.5 Eos # (Auto) 0.1 Baso # (Auto) 0.0 Immature Gran # (Auto) 0.0 PT 11.4 H INR 1.11 Sodium 139.8 Potassium 3.21 L Chloride 111.7 H Carbon Dioxide 19.0 L Anion Gap 12.31 BUN 15.7 Creatinine 0.81 Estimated GFR (MDRD) 90.00 BUN/Creatinine Ratio 19.38 Glucose 76.7 Calcium 8.26 L Total Bilirubin 0.26 AST 45.8 ALT 37.7 Alkaline Phosphatase 96.1 Total Protein 7.10 Albumin 3.14 L Globulin 3.96 Albumin/Globulin Ratio 0.79 Vancomycin Trough 6.038 L Additional Comments Additional Comments: I have independently reviewed and interpreted the labs/EKGs/imaging ordered during this hospital stay. I have reviewed outside records that are available in our EMR that pertain to medical stay including imaging/notes/labs from previous visits. Active Medications Active Medications: Medications Generic Name Dose Route Start Last Admin Trade Name Freq PRN Reason Stop Dose Admin Albuterol/Ipratropium 3 ml 10/27/24 06:00 10/29/24 05:20 Ipratropium/Albuterol Vial.Neb NEB 3 ml RTQ4H ANUSHKA Administration Atorvastatin Calcium 40 mg 10/27/24 17:00 10/28/24 16:46 Atorvastatin Calcium 20 Mg Tablet PO 40 mg QPM ANUSHKA Administration Dexamethasone Sodium Phosphate 6 mg 10/28/24 11:20 10/29/24 09:43 Dexamethasone Sod Phos 10 Mg/Ml Inj IVP 6 mg DAILY ANUSHKA Administration Enoxaparin Sodium 40 mg 10/27/24 14:45 10/29/24 08:09 Enoxaparin Sodium 40 Mg/0.4 Ml Syr SUBCUT 40 mg DAILY ANUSHKA Administration Ferrous Sulfate 324 mg 10/27/24 09:30 10/29/24 08:09 Ferrous Sulfate 324 Mg Tablet. PO 324 mg DAILY ANUSHKA Administration CEFTRIAXONE/D5W 1 GM PREMIX 1 gm in 50 mls @ 100 mls/hr 10/27/24 09:00 10/29/24 08:09 Rocephin 1 Gm/50 Ml D5w IV 10/30/24 08:59 100 mls/hr DAILY ANUSHKA Administration Remdesivir 100 mg/ Sodium 100 mls @ 200 mls/hr 10/28/24 09:00 10/29/24 09:28 Chloride IV 10/29/24 12:00 200 mls/hr DAILY ANUSHKA Administration Loperamide HCl 2 mg 10/29/24 09:57 Loperamide Hcl 2 Mg Tablet PO AFTER LOOSE STOOLS PRN Diarrhea Metoprolol Tartrate 12.5 mg 10/28/24 09:00 10/28/24 09:09 Metoprolol Tartrate 25 Mg Tablet PO 12.5 mg DAILY ANUSHKA Administration Mirtazapine 15 mg 10/27/24 21:00 10/28/24 20:06 Mirtazapine 15 Mg Tablet PO 15 mg BEDTIME ANUSHKA Administration Ondansetron HCl 4 mg 10/27/24 01:43 Ondansetron Hcl/Pf 4 Mg/2 Ml Sdv IVP Q6H PRN Nausea / Vomiting Sodium Chloride 1 syr 10/26/24 18:24 0.9% Sodium Chloride 10 Ml Disp.Syrin IVF PRN PRN To flush IV Sodium Chloride 1 syr 10/29/24 13:00 0.9% Sodium Chloride 10 Ml Disp.Syrin IVF Q8HR ANUSHKA Tamsulosin HCl 0.4 mg 10/27/24 21:00 10/27/24 20:11 Tamsulosin Hcl 0.4 Mg Cap.Er.24h PO 0.4 mg BEDTIME ANUSHKA Administration Plan Plan: 1. Sepsis in setting of UTI - BP unchanged, Lactic normal. Cont abx. BC prelim negative x 24 hours, stopping vancomycin. 2. UTI - UC growth of proteus. Cont rocephin. 3. Acute Hypoxic Respiratory Failure in setting of Covid 19 - Improved, will not keep oxygen on due to dementia, sat 92-93% on RA, Remdesivir ordered - day 3 dose today. decadron 6 mg IV daily, nebs Isolation precautions. 4. Bibasilar pneumonia, onesimo - Could be viral related but will cover with abx due to sepsis. Rocephin ordered. 5. Hypotension in setting of sepsis - Resolved 6. BPH - Cont home meds 7. Hyperlipidemia - cont home meds 8. New Onset Afib - continue lovenox - will discuss anticoag risk vs benefit with family, unable to start beta ever currently due to hypotension DVT Prophylaxis: Lovenox Review Statement Review Statement: I have personally discussed and reviewed the patient's visit/currently labs/imaging/decision making with Dr. Schmidt, my supervising attending. Greater that 50 minutes spent with patient, 50% of the time spent with this patient was devoted to counseling and coordination of care.
[2024-10-30 05:22] LABS: EOSINOPHILS # (AUTO) 0.1 K/ul (0.0-0.7); EOSINOPHILS % (AUTO) 2.3 % (0.0-7.0); HEMATOCRIT 27.8 % (42.0-52.0); HEMOGLOBIN 8.8 g/dl (14.0-18.0); IMMATURE GRANULOCYTE % (AUTO) 0.3 % (0.0-5.0); LYMPHOCYTES # (AUTO) 1.2 K/uL (0.60-3.4); LYMPHOCYTES % (AUTO) 32.7 (10.0-50.0); MEAN CORPUSCULAR HGB CONC 31.7 (31.8-35.4); MEAN CORPUSCULAR VOLUME 94.9 fl (80.0-94.0); MONOCYTES # (AUTO) 0.4 K/uL (0.4-2.0); MONOCYTES % (AUTO) 10.4 (0-10); NEUTROPHILS # (AUTO) 1.9 K/ul (2.0-6.9); NEUTROPHILS % (AUTO) 54.3 % (42.2-75.2); PLATELET COUNT 193 10^3/uL (140-440); RED BLOOD COUNT 2.93 10^6/ul (4.70-6.10); WHITE BLOOD COUNT 3.55 K/ul (4.2-10.2)
[2024-10-30 05:43] LABS: ALANINE AMINOTRANSFERASE 38.2 U/L (0-50); ALBUMIN 2.99 g/dL (3.5-5.0); ALKALINE PHOSPHATASE 103.3 U/L (56-119); ASPARTATE AMINO TRANSFERASE 38.7 U/L (17-59); BILIRUBIN,TOTAL 0.23 mg/dL (0.2-1.3); BLOOD UREA NITROGEN 14.2 mg/dL (9-20); CALCIUM 8.32 mg/dL (8.4-10.2); CARBON DIOXIDE 20.3 mmol/L (22-30.0); CHLORIDE 113.1 mmol/L (98-107); CREATININE 0.73 mg/dL (0.60-1.10); GLUCOSE 109.9 mg/dL (74-106); POTASSIUM 2.97 mmol/L (3.5-5.1); SODIUM 140.7 mmol/L (134.5-145); TOTAL PROTEIN 6.82 g/dL (6.3-8.2)
[2024-10-30] MEDS: K-DUR PO ONE (08:39)
[2024-10-30] MEDS: POTASSIUM CHLORIDE 20 MEQ/100 ML PREMIX 20 MEQ/100 ML BAG IV ONE ×2 (08:39→11:36)
[2024-10-30] MEDS: CEFPODOXIME PROXETIL PO SCH (08:39)
--- NOTE | 2024-10-30 09:18 | DCSUM ---
Admission Date Admission Date: 10/26/24 Discharge Date Discharge Date: 10/30/24 Admission Diagnosis Admission Diagnosis: 1. Sepsis in setting of UTI 2. UTI 3. Covid 19 4. Bibasilar pneumonia, onesimo 5. Hypotension in setting of sepsis Discharge Diagnosis Discharge Diagnosis: 1. Sepsis in setting of UTI - Ruled out, blood cultures negative 2. UTI - Improving 3. Acute Hypoxic Respiratory Failure in setting of Covid 19 - Resolved 4. Bibasilar pneumonia, onesimo - Improving 5. Hypotension in setting of sepsis - Resolved 6. BPH - Chronic, stable 7. Hyperlipidemia - Chronic, stable 8. New Onset Afib - Stable Hospital Provider Hospital Provider: JAVED LOUISE, [facility] Primary Care Physician Primary Care Physician: FRIEDA GUZMAN MD Summary of History and Physical Summary of History and Physical: Patient is an 89 year old [place] who presented to ER with worsening lethargy and fever. It had developed over the course of the day. Son noted him to be worsening. Upon arrival to the ER he was noted to be covid positive. CXR shows bibasilar pneumonia. UA showing UTI. He met sepsis criteria. His BP dropped and required fluids to improve. He was given cefepime and solumedrol as well. Patient was palced on 2L. He was admitted to [facility]. Today patient is feeling better. He has been on RA. His BP is improved but still on low end of normal. He denies complaints. Hospital Course Subjective: Sepsis was ruled out. Blood cultures negative. Initially given vancomycin and rocephin due to this. Stopped vanco after prelim neg cultures. MRSA negative. Urine culture growth of proteus sensitive to Rocephin. Transitioned to cefpo doxime per pharmacy recommendations. Finishes course on 11/02. O2 sat has remained above 92%. Will not leave oxygen on due to dementia. No s/sx of distress. Completed 3 day course of remdesivir. Gave decadron when initially requiring oxygen as well as nebs. Covered bibasilar pneumonia on chest x-ray with rocephin. Cefpodoxime will cover as well. Hypotensive initially on admission. Appeared clinically dry. Fluids given and resolved. A fib noted on monitor on 10/28/24 not in RVR. No previous history. Received lovenox for DVT prevention. D/c with eliquis. No need for rate control at this time. Hypokalemia noted this am. Replacement given. Recommend repeat bmp later this week. No changes to current home medication regimen. Appearance: Pleasant, No Apparent Distress and Alert HEENT: MMM, Supple and No JVD CVS: No Murmur and No Rubs Abdomen: Soft Respiratory: No Dyspnea Extremities: No Edema Vital Signs: Most Recent Vital Signs Temperature 97.7 F 10/30/24 05:42 Temperature Source Tympanic 10/30/24 05:42 Temperature Source Infrared 10/26/24 18:20 Pulse Rate 68 10/30/24 05:42 Respiratory Rate 15 10/30/24 05:42 Blood Pressure 104/66 10/30/24 05:42 Blood Pressure Mean 78 10/30/24 05:42 Blood Pressure Right Arm 110/66 10/27/24 01:42 Blood Pressure Location Right Arm 10/30/24 05:42 Blood Pressure Position Supine 10/30/24 05:42 O2 Sat by Pulse Oximetry 97 10/30/24 05:42 Oxygen Delivery Method Nasal Cannula 10/30/24 05:42 Oxygen Flow Rate 2 10/30/24 05:15 Height 6 ft 1 in 10/27/24 10:12 Weight 65.3 kg 10/29/24 01:33 Telemetry Type Bedside Monitor 10/30/24 01:00 Telemetry Monitoring Continues 10/30/24 01:00 Telemetry Heart Rate 104 H 10/30/24 01:00 Telemetry SPO2 89 L 10/29/24 01:00 EKG NM Interval 0.12 10/30/24 01:00 EKG QRS Interval 0.06 10/30/24 01:00 EKG QT Interval 0.09 L 10/28/24 00:[address] W/ PACS 10/30/24 01:00 Imaging: EXAM: CHEST RADIOGRAPH TECHNIQUE: Single frontal chest radiograph. HISTORY: Diminished breath sounds. Positive COVID-19. COMPARISON: 09/21/2024. Correlation is also made with CT chest from 07/04/2024. FINDINGS: The lungs are hyperexpanded, as before. Bibasilar infiltrates, stable on the left and new on the right. No pleural effusion or pneumothorax is seen. Heart size is normal. No acute displaced rib fractures are identified. IMPRESSION: 1. Stable findings of emphysema. 2. Bibasilar pneumonia, stable on the left, and new on the right. Lab Results Last 24 Hours: 10/30/24 10/29/24 04:37 08:29 WBC 3.55 L RBC 2.93 L Hgb 8.8 L Hct 27.8 L MCV 94.9 H MCH 30.0 MCHC 31.7 L RDW Coeff of Carlos 15.0 H Plt Count 193 Immature Gran % (Auto) 0.3 Neut % (Auto) 54.3 Lymph % (Auto) 32.7 Geary % (Auto) 10.4 H Eos % (Auto) 2.3 Baso % (Auto) 0.0 Neut # (Auto) 1.9 L Lymph # (Auto) 1.2 Geary # (Auto) 0.4 Eos # (Auto) 0.1 Baso # (Auto) 0.0 Immature Gran # (Auto) 0.0 Sodium 140.7 Potassium 2.97 L Chloride 113.1 H Carbon Dioxide 20.3 L Anion Gap 10.27 BUN 14.2 Creatinine 0.73 Estimated GFR (MDRD) 102.00 BUN/Creatinine Ratio 19.45 Glucose 109.9 H Calcium 8.32 L Total Bilirubin 0.23 AST 38.7 ALT 38.2 Alkaline Phosphatase 103.3 Total Protein 6.82 Albumin 2.99 L Globulin 3.83 Albumin/Globulin Ratio 0.78 Vancomycin Trough 6.038 L Discharge Instructions Discharge Planning: Discharge Planning > 40 minutes If patient is discharged with left ventricular systolic dysfunction: No Discharged with a beta ever? [] If no, why not? [] Discharged with an kerry/arb? [] If no, why not? [] Diagnosis: Covid-19, UTI, Afib Diet: Regular Activity: as tolerated Medications: Cefpodoxime, Eliquis Follow-up with PCP this week Discharge Medications: RX At Discharge apixaban 2.5 mg tablet (Eliquis) 2.5 mg PO BID #60 tabs 10/30/24 [Rx] cefpodoxime 200 mg tablet 200 mg PO Q12HR #7 tabs 10/30/24 [Rx] Discharge Plan Discharge Discharge Orders: Discharge Patient (ONCE); Ordered 10/30/24 Ordered By: SOWMYA VALLEJO Activity Restrictions/Additional Instructions: Diagnosis: Covid-19, UTI, Afib Diet: Regular Activity: as tolerated Medications: Cefpodoxime, Eliquis Follow-up with PCP this week Instructions: A-fib (Atrial Fibrillation) (GEN), Urinary Tract Infection in Older Adults (GEN), COVID-19 (Coronavirus Disease 2019) (GEN) Patient Disposition: TRANSFER SNF Prescriptions: New cefpodoxime 200 mg Tablet 200 mg PO Q12HR Qty: 7 0RF Eliquis 2.5 mg tablet 2.5 mg PO BID Qty: 60 0RF Continued ferrous sulfate 325 mg (65 mg iron) tablet See Rx Instructions .ROUTE .COMPLEX Qty: 90 1RF Dose Instruction: TAKE 1 TABLET BY MOUTH EVERY DAY Rx Instructions: TAKE 1 TABLET BY MOUTH EVERY DAY atorvastatin [Lipitor] 40 mg tablet 40 mg PO QPM multivitamin,[id number]-min Tablet 1 tab PO DAILY acetaminophen 325 mg tablet 650 mg PO Q4H PRN (Reason: pain/FEVER) Rx Instructions: DO NOT EXCEED 3 GRAMS ACETAMINOPHEN FROM ALL SOURCES IN 24 HOURS methocarbamol 500 mg Tablet 750 mg PO Q8H mirtazapine 15 mg tablet 15 mg PO BEDTIME tamsulosin [Flomax] 0.4 mg capsule 0.4 mg PO QHS Did you review [place] [employer] for ALL controlled substances?: No Discussed opioids are addictive and Narcan is available by prescription or from pharmacy.: No Condition: Stable
[2024-10-30 10:43] VITALS: BP 122/58
[2024-10-30 15:13] VITALS: PULSE 91; RESP 18; TEMP 96.7
== END 2024-10-30 16:15 | DRG 871 ==
LOC: ED 18:18 → SCU 22:21
PROVIDERS: ADMIT Hospitalist; ATTEND Nurse Practitioner Family